=== PATIENT | female | born 1945 | race Caucasian/White ===

== ENCOUNTER 2020-06-07 07:56 | Emergency (ER) | payer MEDICARE, OTHER, SELFPAY ==
--- NOTE | ~2020-06-07 | CT_ITS ---
EXAMINATION: CT abdomen pelvis w con DATE: 06/07/2020 09:02 INDICATION: Abdominal pain. Nausea, vomiting, and diarrhea. TECHNIQUE: Computed tomography (CT) of the abdomen and pelvis was performed with 100 mL Omnipaque 350 intravenous contrast. Automated exposure control and iterative reconstruction technique were employe d. The dose-length product was 994.54 mGy-cm. COMPARISON: None. FINDINGS: The visualized portions of the lung bases demonstrate mild atelectasis. A calcified left ronnell ng nodule is consistent with old adenomatous disease. No pleural effusion. The heart size is normal. No pericardial effusion. The liver and spleen are normal. Material in the gallbladder may be sludge o r stones. The gallbladder is normal in size. The pancreas, adrenal glands, and kidneys are normal. Th ere are scattered diverticula in the colon. There are areas of wall thickening throughout the colon, worst in the sigmoid colon, consistent with colitis. The appendix is normal. There is a diverticulum of the fundus of the stomach. There is a mildly enlarged perisigmoid lymph node. There is no free int raperitoneal fluid. There is severe lumbar spondylosis. IMPRESSION: 1. Colitis. 2. Mildly enlarged perisigmoid lymph node, which may be reactive. Reviewed, dictated and finalized at location B.
--- NOTE | 2020-06-07 08:12 | ED.NAVMDI ---
HPI - Nausea/Vomiting/Diarrhea General Chief complaint: Nausea/Vomiting/Diarrhea Stated complaint: ABD PAIN, N/V/D Time Seen by Provider: 06/07/20 08:10 Source: old records reviewed History of Present Illness HPI Narrative: Patient presents emergency department from home for abdominal pain. Patient states symptoms began 5 days ago. Patient states she has been having cramping in her abdomen worse on the left side. States is been associated with diarrhea. The patient was seen by her PCP yesterday and had a COVID test that has not been resulted. She states that symptoms worsen with her diarrhea and she came in for further evaluation. She states she has had a subjective low-grade fever denies any runny nose sore throat cough or shortness of breath or any other symptoms states she took no pain medication this morning Related Data Allergies Allergy/AdvReac Type Severity Reaction Status Date / Time No Known Allergies Allergy Verified 06/07/20 08:26 Review of Systems Review of Systems: Narrative: Gen.: Reports low-grade fever Eyes: Denies eye pain or visual change ENT: Denies congestion Respiratory: Denies shortness of breath or cough CV: Denies chest pain or palpitations GI: See HPI denies burning, urgency, frequency or hematuria Musculoskeletal: Denies back pain or muscle pain Neuro: Denies numbness, tingling, weakness or focal weakness Skin: Denies rash Except as documented, all other systems reviewed and negative [facility] Past Medical History Medical History (Updated 06/07/20 @ 10:23 by Desmond Sullivan DO) Hypertension Social History Social History (Updated 06/07/20 @ 08:13 by Desmond Sullivan DO) Smoking status: Never smoker Exam Narrative: Exam Narrative: APPEARANCE: No acute distress, nontoxic, resting in bed HEENT: Normocephalic, atraumatic, OMM RESPIRATORY: No respiratory distress, clear to auscultation bilaterally with no rhonchi wheezing or rales CARDIOVASCULAR: RRR s murmur ABDOMINAL: Soft, nondistended, tender palpation left upper quadrant left lower quadrant, no tenderness right upper quadrant right lower quadrant, no rebound or guarding MUSCULOSKELETAl: Moves all extremities. No clubbing, cyanosis or edema. NEURO: Awake and alert. Following commands, speech normal, no focal deficits SKIN:: Warm, dry. Normal Color PSYCHIATRIC: Normal affect/mood Course Course Emergency Course: Discussed with Dr. Du presentation work-up. Agrees plan for discharge patient started on Cipro and Flagyl Patient states that they are feeling much better at this time. States abdominal pain has improved. Repeat abdominal exam shows the patient's abdomen to be soft with no surgical abdomen present. Discussed with patient results of workup and diagnosis. Discussed need for follow-up with primary care physician, reasons to return to the emergency department in proper use of medication. Patient understands and agrees to current treatment plan Vital Signs Vital signs: Vital Signs Temperature 98.3 F 06/07/20 08:14 Pulse Rate 78 06/07/20 08:14 Respiratory Rate 16 06/07/20 08:14 Blood Pressure 134/70 06/07/20 08:14 Pulse Oximetry 95 06/07/20 08:14 Temperature 98.3 F 06/07/20 08:14 Pulse Rate 73 06/07/20 10:03 Respiratory Rate 22 H 06/07/20 10:03 Blood Pressure 139/77 06/07/20 10:03 Pulse Oximetry 98 06/07/20 10:03 MDM - Nausea/Vomiting/Diarrhea MDM Narrative Medical decision making narrative: Patient's abdomen is soft without significant pain or signs of surgical abdomen on serial exams. Lab and x-ray evaluations are reviewed and patient is felt to be a reasonable candidate for outpatient management. Patient was instructed as to limitations of x-ray and laboratory evaluation and encouraged to return to ED or primary physician for repeat exam in 12 hours if continued or worsening pain Lab Data Result diagrams: 06/07/20 08:20 06/07/20 08:20 Labs: Lab Results
[2020-06-07 08:14] VITALS: BP 134/70; PULSE 78; RESP 16; TEMP 36.8; O2SAT 95
[2020-06-07] MEDS: LACTATED RINGERS 1,000 ML 999 ML IV CONT (08:18)
[2020-06-07 08:28] LABS: Basophils Absolute Auto 0.1 K/mm3 (0.0-0.1); Basophils Percent Auto 0.5 % (0.2-1.2); Eosinophils Absolute Auto 0.2 K/mm3 (0-0.3); Eosinophils Percent Auto 1.6 % (0-4.4); Hematocrit 36.6 % (37.0-47.0); Hemoglobin 11.8 g/dL (12.0-15.0); Immature Granulocyte Absolute 0.05 K/mm3 (0.00-0.031); Immature Granulocyte Percent A 0.4 % (0-0.5); Lymphocytes Absolute Auto 0.95 K/mm3 (0.9-3.2); Lymphocytes Percent Auto 8.2 % (18.3-44.2); Mean Corpuscular HGB Conc 32.2 g/dl (32-36); Mean Corpuscular Hemoglobin 26.9 pg (26-34); Mean Corpuscular Volume 83.6 fl (80-100); Mean Platelet Volume 8.8 fl (7.4-10.4); Monocytes Absolute Auto 1.3 K/mm3 (0.1-0.6); Monocytes Percent Auto 11.4 % (2.6-8.5); Neutrophils Percent Auto 77.9 % (45.5-73.1); Platelet Count Result 392 k/mm3 (150-375); Red Blood Count 4.38 M/mm3 (4.2-5.4); Red Cell Distribution Width 13.8 % (11.5-14.5); White Blood Count 11.6 K/mm3 (4.5-10.0)
[2020-06-07 08:40] LABS: Prothrombin Time 12.7 Seconds (11.1-14.7)
[2020-06-07 08:41] LABS: Alanine Aminotransferase 33 U/L (4-35); Albumin Level 3.8 g/dL (3.5-5.1); Alkaline Phosphatase 126 U/L (38-126); Anion Gap 8 mmol/L (8-16); Aspartate Amino Transferase 44 U/L (14-36); Bilirubin,Total 0.4 mg/dL (0.2-1.3); Blood Urea Nitrogen 16 mg/dL (7-17); Calcium 9.1 mg/dL (8.4-10.2); Carbon Dioxide 26 mmol/L (22-30); Chloride 102 mmol/L (98-107); Estimated CRCL calculation 66 ml/min; Estimated Glomerular Filt Rate > 60; Glucose 104 mg/dL (65-105); Potassium 4.1 mmol/L (3.4-5.0); Sodium 136 mmol/L (137-145)
[2020-06-07 09:33] LABS: Add Urine Microscopic? YES; Appearance Urine Cloudy (Clear); Bacteria Urine Trace /hpf; Bilirubin Urine Negative (Negative); Blood Urine Negative (Negative); Color Urine Yellow (Yellow); Glucose Urine UA Negative (Negative); Ketones Urine Negative (Negative); Leukocyte Esterase Ur 1+ LEU/UL (Negative); Mucus Urine Rare /lpf; Nitrate Urine Positive (Negative); Protein Urine Negative (Negative); RBC Urine 0-2 /hpf (0-2); Squamous Epithelial Cell Urine Few /hpf (Few); Urobilinogen Urine Negative mg/dL (<2.0); WBC Urine >75 /hpf
[2020-06-07 09:34] LABS: Specific Grav Ur 1.033 (1.001-1.035)
[2020-06-07 10:03] VITALS: BP 139/77; PULSE 73; RESP 22; O2SAT 98
[2020-06-07] MEDS: metroNIDAZOLE 250 MG TABLET 500 MG PO (10:32)
[2020-06-07] MEDS: CIPROFLOXACIN 500 MG TAB PO (10:32)
[2020-06-07 10:39] VITALS: BP 124/67; PULSE 72; RESP 18; O2SAT 96
== END 2020-06-07 10:40 | disposition home or self-care (01) ==
PROVIDERS: Emergency Provider Emergency Medicine; PCP Family Medicine Adolescent Medicine
DX: K52.9 Noninfective gastroenteritis and colitis, unspecified (principal); N39.0 Urinary tract infection, site not specified; I10 Essential (primary) hypertension
CPT/HCPCS: 36415; 74177; 80053; 81001; 85025; 85610; 87077; 87086; 87088; 87186; 96361; 96374; 99284; A9270; J0131; J7120; Q9967

== ENCOUNTER 2020-10-13 10:26 | Inpatient (IN) | payer MEDICARE, OTHER, SELFPAY ==
[2020-10-13] VITALS (10 sets, daily range): BP systolic 134–159; BP diastolic 63–85; PULSE 92–99; RESP 14–22; TEMP 36.7–37.7; O2SAT 94–100; BMI 31.4
--- NOTE | ~2020-10-13 | CT_ITS ---
EXAMINATION: CT abdomen pelvis w con INDICATION: Nausea and vomiting TECHNIQUE: Computed tomographic images of the abdomen and pelvis were obtained after the administrati on of 100 cc of Omnipaque 350 intravenous contrast. The dose-length product (DLP) was 763.76 mGy-cm. Automated exposure control and iterative reconstruction technique were employed. COMPARISON: 06/07/2020 FINDINGS: Minimal dependent atelectasis is present in the lung bases. The heart size is normal. There is a small sliding hiatal hernia. The liver, spleen, pancreas, gallbladder, and adrenal glands are n ormal. The kidneys are unremarkable. There is calcified atherosclerosis of the aorta and many of the other arteries. There is diffuse wall thickening of the colon, worst in the sigmoid colon. A mildly e nlarged perisigmoid lymph node is again noted. No additional abdominal pelvic lymphadenopathy is iden tified. There is no free intraperitoneal gas or evidence of bowel obstruction. There is severe lumbar spondylosis. IMPRESSION: 1. Colitis, worst in the sigmoid colon. 2. Persistent mildly enlarged perisigmoid lymph node, possibly reactive. Reviewed, dictated and finalized at location A. STONER
--- NOTE | ~2020-10-13 | CT_ITS ---
EXAMINATION: CT brain wo con DATE: 10/13/2020 13:43 INDICATION: Severe headache. Fever. TECHNIQUE: Computed tomography (CT) of the head was performed without intravenous contrast. Sagittal and coronal reconstructions were performed. The mA was adjusted according to patient size. Iterative reconstruction technique was employed. The dose-length product was 605.33 mGy-cm. COMPARISON: None FINDINGS: No acute intracranial hemorrhage, acute infarction or abnormal extra axial fluid collection. There is mild scattered white matter hypoattenuation consistent with chronic small vessel ischemic disease. S ymmetric prominence of the sulci consistent with mild age-appropriate diffuse cerebral volume loss. Ventricles are normal and symmetric. No mass/mass effect. Changes of bilateral intraocular lens repla cement. The orbits, paranasal sinuses and mastoid air cells are normal. Mild mucosal thickening the b ilateral ethmoid and sphenoid sinuses. Intracranial calcified cerebral atherosclerosis is noted. IMPRESSION: 1. No acute intracranial process. 2. Age-related changes including mild diffuse volume loss and mild scattered white matter hypoattenua tion consistent with chronic small vessel ischemic disease. Reviewed, dictated and finalized at location A. TENDER IMPRESSION: 1. No acute intracranial process. 2. Age-related changes including mild diffuse volume loss and mild scattered wh ite matter hypoattenuation consistent with chronic small vessel ischemic diseas e.
--- NOTE | ~2020-10-13 | US_ITS ---
EXAMINATION: US venous doppler [facility] DATE: 10/14/2020 10:52 INDICATION: Bilateral lower limb pain TECHNIQUE: Grayscale ultrasound images without and with compression and Doppler ultrasound images of the bilateral lower extremity veins were obtained. COMPARISON: None. FINDINGS: The visualized portions of right common femoral vein, profunda (deep) femoral vein, femoral vein, pop liteal vein, posterior tibial veins, peroneal veins, gastrocnemius vein and greater saphenous vein ou tflow are patent. The visualized portions of left common femoral vein, profunda femoral vein, femoral vein, popliteal v ein, posterior tibial veins, peroneal veins, gastrocnemius vein and greater saphenous vein outflow ar e patent. IMPRESSION: 1. No deep venous thrombosis in either lower limb. Reviewed, dictated and finalized at location A. CHEMIST
--- NOTE | ~2020-10-13 | XR_ITS ---
EXAMINATION: XR chest 1V portable DATE: 10/13/2020 12:08 INDICATION: Chest pressure TECHNIQUE: frontal view of the chest was obtained. COMPARISON: Chest radiograph dated 10/16/2015 FINDINGS: Small calcified nodule at the left costophrenic angle consistent with old granulomatous disease. No o ther airspace opacities, pulmonary edema, pleural effusion or pneumothorax. The cardiomediastinal sheree houette is normal. Visualized bones and soft tissues are unremarkable. IMPRESSION: 1. No acute cardiopulmonary disease. Reviewed, dictated and finalized at location A. KEN FANCIER
--- NOTE | 2020-10-13 11:44 | ECG_ITS ---
Measurements Intervals [place] Rate: 98 P: 29 CT: 176 QRS: -20 QRSD: 82 T: 24 QT: 352 QTc: 449 Interpretive Statements SINUS RHYTHM EARLY PRECORDIAL R/S TRANSITION MINIMAL Q WAVES- HIGH LATERAL LEADS BORDERLINE ECG Electronically Signed On 10-13-2020 14:03:57 HVAC SERVICE MANAGER by Barry Peacock D.O.
[2020-10-13 12:00] LABS: Hematocrit 34.1 % (37.0-47.0); Mean Corpuscular HGB Conc 32.3 g/dl (32-36); Mean Corpuscular Hemoglobin 26.8 pg (26-34); Mean Corpuscular Volume 83.2 fl (80-100); Mean Platelet Volume 8.4 fl (7.4-10.4); Platelet Count Result 495 k/mm3 (150-375); Red Cell Distribution Width 13.6 % (11.5-14.5); White Blood Count 20.1 K/mm3 (4.5-10.0)
[2020-10-13 12:10] LABS: Prothrombin Time 13.8 Seconds (11.1-14.7)
[2020-10-13 12:11] LABS: Partial Thromboplastin Time 30.9 SECONDS (22.3-36.8)
[2020-10-13 12:26] LABS: Band Neutrophils Percent 6 % (0-6); Hypochromasia 2+ (NORMAL); Monocytes Absolute Manual 2.21 K/mm3 (0.1-0.90); Monocytes Percent Manual 11 % (3-9); Neutrophils Absolute Manual 17.48 K/mm3 (1.7-7.2); Neutrophils Percent Manual 81 % (46-73); Platelet Estimate Increased (Adequate); Total Cells Counted 100
--- NOTE | 2020-10-13 12:45 | ED.FEVER ---
HPI - Fever General Chief Complaint: Fever Stated Complaint: FEVER,QUAN,ST,NASAL CONGESTION Time Seen by Provider: 10/13/20 12:17 History of Present Illness HPI Narrative: 75 yo female brought in from home by EMS presents to the ED for multiple complaints. She reports that she has had a QUAN for the past 2 weeks. This was thought to be due to sinusitis. She was started on antibiotics for this by her PCP. Since the onset of her symptoms she has also developed nausea, vomiting, diarrhea, and subjective fever. She is on chronic antibiotic prophylaxis for UTIs. She has not been taking this and says that she never knows when she has a UTI. Related Data Home Medications Medication Instructions Recorded Confirmed Turmeric Cbd Oil Hemp Isolate 10/13/20 acetaminophen 1,000 mg PO QID PRN 10/13/20 cefprozil 10/13/20 celecoxib mg 10/13/20 duloxetine mg PO 10/13/20 magnesium oxide 500 mg PO DAILY 10/13/20 metoprolol tartrate 10/13/20 tramadol mg 10/13/20 trimethoprim 10/13/20 Allergies Allergy/AdvReac Type Severity Reaction Status Date / Time No Known Allergies Allergy Verified 06/07/20 08:26 Review of Systems Review of Systems: All systems reviewed & are unremarkable except as noted in HPI and below Constitutional: Constitutional: Reports fatigue and Reports fever(s) ENT: Reports nasal congestion and Reports sore throat Cardiovascular: Cardiovascular: Reports chest pain Respiratory: Respiratory: Reports dyspnea Gastrointestinal: Gastrointestinal: Reports abdominal pain, Reports diarrhea, Reports nausea and Reports vomiting Genitourinary: Genitourinary: Denies hematuria, Reports nocturia and Denies dysuria Musculoskeletal: Musculoskeletal: Reports back pain Neurologic: Reports headache(s), Denies numbness and Reports weakness PMFSH Past Medical History Medical History (Updated 10/13/20 @ 17:01 by Bert Mack MD) Chronic UTI Depression Hypertension Sinusitis Social History Social History (Updated 06/07/20 @ 08:13 by Desmond Sullivan DO) Smoking status: Never smoker Exam Const: General: no acute distress and uncomfortable Nutritional Appearance: well nourished Orientation/consciousness: patient oriented x3 HENMT: Head: normal to inspection Face and sinus: normal facial exam Eyes: Pupils: Equal, round and reactive pupils present EOM: EOMs intact bilaterally Neck: Neck: normal visual inspection Resp: Effort & Inspection: normal respiratory effort Auscultation: clear to auscultation bilaterally Cardio: Rate: regular rate Rhythm: regular rhythm GI: Inspection: non-distended GI Palp: Yes Soft to palpation and Yes Tenderness to palpation present (GI) (diffusely) Auscultation: Hyperactive bowel sounds present Skin: General skin exam: normal color Neuro: General: patient oriented x3, no focal motor deficits and CN's II-XI intact bilaterally Speech: normal speech Extrem: General: normal to inspection and no edema Psych: Affect: Anxious affect present Course Vital Signs Vital signs: Vital Signs Temperature 37.2 C 10/13/20 11:55 Pulse Rate 97 10/13/20 11:55 Respiratory Rate 21 H 10/13/20 11:55 Blood Pressure 138/85 10/13/20 11:55 Pulse Oximetry 96 10/13/20 11:55 Temperature 37.2 C 10/13/20 16:45 Pulse Rate 93 10/13/20 16:45 Respiratory Rate 18 10/13/20 16:45 Blood Pressure 145/74 H 10/13/20 16:45 Pulse Oximetry 98 10/13/20 16:45 MDM - Fever Differential Diagnosis Differential diagnosis: Likely cellulitis, gastroenteritis, community acquired pneumonia, sepsis, influenza and other (COVID-19, dehydration, diverticulitis) Medical Records Attestation: I reviewed the patient's medical records. Lab Data Attestation: I reviewed the patient's lab results. Result diagrams: 10/13/20 11:47 10/13/20 11:47 Labs: Lab Results 10/13/20 10/13/20 10/13/20 Range/Units 11:47 11:47 11:47 WBC 20.1 H (4.5-10
[2020-10-13 12:59] LABS: Anion Gap 8 mmol/L (8-16); Blood Urea Nitrogen 15 mg/dL (7-17); Calcium 8.9 mg/dL (8.4-10.2); Carbon Dioxide 29 mmol/L (22-30); Chloride 97 mmol/L (98-107); Estimated CRCL calculation 64 ml/min; Estimated Glomerular Filt Rate > 60; Glucose 121 mg/dL (65-105); Potassium 3.8 mmol/L (3.4-5.0); Sodium 134 mmol/L (137-145)
[2020-10-13 13:12] LABS: Troponin I < 0.012 ng/mL (0.000-0.034)
[2020-10-13 13:15] LABS: Lactic Acid Reflex 1.3 mmol/L (0.7-2.1)
[2020-10-13 13:29] LABS: Alanine Aminotransferase 25 U/L (4-35); Albumin Level 3.5 g/dL (3.5-5.1); Alkaline Phosphatase 154 U/L (38-126); Aspartate Amino Transferase 38 U/L (14-36); Bilirubin,Total 0.5 mg/dL (0.2-1.3); CRP 20.9 mg/dL (<1.0)
[2020-10-13 13:29] LABS: Add Urine Microscopic? YES; Appearance Urine Clear (Clear); Bilirubin Urine Negative (Negative); Blood Urine Negative (Negative); Color Urine Yellow (Yellow); Glucose Urine UA Negative (Negative); Ketones Urine Negative (Negative); Leukocyte Esterase Ur Negative LEU/UL (Negative); Mucus Urine Heavy /lpf; Nitrate Urine Negative (Negative); Protein Urine 1+ mg/dL (Negative); Specific Grav Ur 1.027 (1.001-1.035); Squamous Epithelial Cell Urine Occasional /hpf (Few); Urobilinogen Urine Negative mg/dL (<2.0)
[2020-10-13] MEDS: SODIUM CHLORIDE 0.9% IV 1,000 ML 999 ML IV CONT (14:04)
[2020-10-13 15:18] LABS: Troponin I < 0.012 ng/mL (0.000-0.034)
[2020-10-13] MEDS: VANCOMYCIN ORAL 125 MG/2.5 ML SYRUP PO ×2 (17:51→23:30)
[2020-10-13 18:18] LABS: Troponin I < 0.012 ng/mL (0.000-0.034)
--- NOTE | 2020-10-13 19:12 | ADMGEN ---
This patient, Daphne Garrison, was admitted to 3 [facility] Surg Room 320-01. Patient/family oriented to hospital policies and general routines including ID bracelet, bed and alarms, visiting hours, pain management, procedures, bathroom and other care routines, personal items, smoking policy, room service/diet, and visiting hours. Information on how to activate the Rapid Response Team has been discussed. Patient/Family are encouraged to report perceived risks to care and to ask questions if they do not understand what they are told or what they should do.
[2020-10-13] MEDS: ONDANSETRON INJ 4 MG/2 ML VIAL IV PUSH (19:19)
[2020-10-13] MEDS: LACTATED RINGERS 1,000 ML 100 ML IV CONT (19:20)
--- NOTE | 2020-10-13 22:36 | PC.NURSE ---
1900 PT RECEIVED ALERT AND ORIENTED. ASSISTED TO BATHROOM. ORIENTED TO ROOM AND CALL LIGHT
[2020-10-14] VITALS (8 sets, daily range): BP systolic 130–148; BP diastolic 57–70; PULSE 69–94; RESP 16–20; TEMP 36.1–37.1; O2SAT 94–97
[2020-10-14] MEDS: ONDANSETRON INJ 4 MG/2 ML VIAL IV PUSH ×3 (04:46→20:20)
[2020-10-14 08:26] LABS: Basophils Absolute Auto 0.1 K/mm3 (0.0-0.1); Basophils Percent Auto 0.3 % (0.2-1.2); Eosinophils Absolute Auto 0.1 K/mm3 (0-0.3); Eosinophils Percent Auto 0.7 % (0-4.4); Hematocrit 31.5 % (37.0-47.0); Hemoglobin 9.8 g/dL (12.0-15.0); Immature Granulocyte Absolute 0.11 K/mm3 (0.00-0.031); Immature Granulocyte Percent A 0.7 % (0-0.5); Lymphocytes Absolute Auto 0.73 K/mm3 (0.9-3.2); Mean Corpuscular HGB Conc 31.1 g/dl (32-36); Mean Corpuscular Hemoglobin 25.8 pg (26-34); Mean Corpuscular Volume 82.9 fl (80-100); Mean Platelet Volume 8.1 fl (7.4-10.4); Monocytes Absolute Auto 1.4 K/mm3 (0.1-0.6); Monocytes Percent Auto 9.2 % (2.6-8.5); Neutrophils Absolute Auto 12.4 K/mm3 (1.3-6.7); Neutrophils Percent Auto 84.1 % (45.5-73.1); Platelet Count Result 475 k/mm3 (150-375); Red Cell Distribution Width 13.7 % (11.5-14.5); White Blood Count 14.7 K/mm3 (4.5-10.0)
[2020-10-14] MEDS: LACTATED RINGERS 1,000 ML 100 ML IV CONT (08:48)
[2020-10-14 09:06] LABS: Alanine Aminotransferase 23 U/L (4-35); Albumin Level 2.9 g/dL (3.5-5.1); Alkaline Phosphatase 132 U/L (38-126); Anion Gap 4 mmol/L (8-16); Aspartate Amino Transferase 33 U/L (14-36); Bilirubin,Total 0.4 mg/dL (0.2-1.3); Blood Urea Nitrogen 8 mg/dL (7-17); Calcium 8.1 mg/dL (8.4-10.2); Carbon Dioxide 29 mmol/L (22-30); Chloride 100 mmol/L (98-107); Estimated CRCL calculation 64 ml/min; Estimated Glomerular Filt Rate > 60; Glucose 96 mg/dL (65-105); Magnesium 1.8 mg/dL (1.6-2.3); Potassium 3.6 mmol/L (3.4-5.0); Sodium 133 mmol/L (137-145)
--- NOTE | 2020-10-14 09:51 | PM.IMHP ---
H&P: HPI History of Present Illness Date/Time: 10/14/20 09:51 Chief Complaint: Nausea, vomiting, diarrhea, abdominal pain Narrative: Daphne Garrison is a 75 year old female with history of recent diagnosis of colitis, recurrent UTIs, depression, recent sinusitis (treated with cipro per patient), and hypertension who presented to the ED from home on 10/13 with multiple complaints, mainly persistent diarrhea and abdominal pain. Patient states her symptoms started in 05/2020 when she was diagnosed with colitis and treated with cipro and flagyl for 10 days. Her symptoms at that time were similar including multiple bouts of diarrhea throughout the day, nausea, vomiting, and abdominal pain. She notes taking the full course of antibiotics at that time with some improvement in her symptoms, but still persistent to a lesser degree. This continued through 08/2020 when she had an exacerbation in her symptoms and was treated again with another course of Flagyl and Cipro, she thinks for the same amount of time or for 2 weeks. Again, had some improvement in her symptoms, but still persistent until she had worsening symptoms this past week, yet again, and worsened to a point to which it was unbearable, prompting her to proceed to the ED for further evaluation. She state she has had multiple episodes of nonbloody, brown, mucous stool, too many to quantify throughout the day. She has associated diffuse abdominal cramping as well. She has had subjective fevers, myalgias, and headache, as well as, some occasional chest pressure, but no palpitations, radiation of chest pain, associated diaphroesis. She notes she recently was given a course of antibiotics (she thinks cipro) for treatment of sinusitis from her PCP for which she has only taken roughly 6 days worth. Prior to 05/2020, when her symptoms first started, she notes she was intentionally trying to lose weight and adjusted her diet and began taking diet pills. She notes losing 20 lbs intentionally with this system, but now has 5 lbs of weight loss recently due to poor PO intake. She also notes bilateral lower extremity calf pain. She has no other complaints at the moment. Denies current subjective f/c/s, dizziness, lightheadedness, changes in v/h, current cp/palpitations, sob/cough, oral lesions/sores, dysuria, hematuria, cloudy urine, current calf pain/swelling. She also denies any previous episodes outside of 05/2020 and 08/2020, nor any personal or family history of IBD. While in the ED, patient was found to have stable VS, tmax of 99.9, leukocytosis of 20.1k and CT abd/pelvis findings suggestive of colitis, worst in the sigmoid colon; persistent mildly enlarge perisigmoid lymph node noted, possibly reactive. She was placed on IV zosyn and oral vanc, for which she could only take 2 doses orally, and then began developing n/v again. Today she is still noted to have stable VS, afebrile, with improving leukocytosis of 14.7k. She is also noted to have anemia, relatively stable from previous hospital visit. Electrolytes, LFTs stable/normal today; lactic acid WNL yesterday; troponin negative x 3. CXR and CT head in ED grossly unremarkable. Review of Systems Review of Systems: All systems reviewed & are unremarkable except as noted in HPI and below PMFSH Past Medical History Medical History (Updated 10/14/20 @ 10:41 by Dax Stapleton PA-C) Arthritis Chronic UTI DDD (degenerative disc disease) Depression Hypertension Psoriasis Sinusitis Surgical History Surgical History (Updated 10/14/20 @ 10:41 by Dax Stapleton PA-C) H/O: hysterectomy History of laminectomy History of left knee replacement Family History Family History (Updated 10/13/20 @ 21:03 by Malika Ledesma RN) Mother Leukemia Father Heart attack Sibling Heart abnormality Social History Social History (Updated 06/07/20 @ 08:13 by Desmond Sullivan DO) Smoking status: Never smoker Alcohol intake: never Substance use: never
[2020-10-14] MEDS: CIPROFLOXACIN 400 MG/D5W 200ML 200 ML 200 MG IVPB (10:32)
[2020-10-14] MEDS: METOPROLOL TARTRATE 50 MG TAB PO ×2 (10:33→16:49)
[2020-10-14] MEDS: CELECOXIB 200 MG CAPSULE PO (10:33)
[2020-10-14] MEDS: DULoxetine HCL 60 MG CAPSULE.DR PO (10:33)
[2020-10-14] MEDS: metroNIDAZOLE 500 MG/ISO 100ML 500 MG/100 ML BAG 100 MG IVPB ×2 (10:34→18:24)
[2020-10-14] MEDS: ENOXAPARIN 40 MG/0.4 ML SYRINGE SUB-Q (11:46)
[2020-10-14] MEDS: ACETAMINOPHEN 500 MG TABLET 1000 MG PO (20:22)
[2020-10-14 20:47] LABS: SARS-CoV-2 RNA PCR Negative
[2020-10-15] MEDS: ONDANSETRON INJ 4 MG/2 ML VIAL IV PUSH ×3 (00:13→09:07)
[2020-10-15] MEDS: metroNIDAZOLE 500 MG/ISO 100ML 500 MG/100 ML BAG 100 MG IVPB ×3 (01:46→17:16)
[2020-10-15] MEDS: LACTATED RINGERS 1,000 ML 100 ML IV CONT (01:47)
[2020-10-15] MEDS: CIPROFLOXACIN 400 MG/D5W 200ML 200 ML 200 MG IVPB ×2 (05:21→18:12)
[2020-10-15 06:00] VITALS: BP 147/61; PULSE 79; RESP 18; TEMP 36.4; O2SAT 97
[2020-10-15 07:46] LABS: Basophils Absolute Auto 0.1 K/mm3 (0.0-0.1); Basophils Percent Auto 0.4 % (0.2-1.2); Eosinophils Absolute Auto 0.2 K/mm3 (0-0.3); Hematocrit 30.9 % (37.0-47.0); Hemoglobin 9.4 g/dL (12.0-15.0); Immature Granulocyte Absolute 0.13 K/mm3 (0.00-0.031); Immature Granulocyte Percent A 1.1 % (0-0.5); Lymphocytes Absolute Auto 0.75 K/mm3 (0.9-3.2); Lymphocytes Percent Auto 6.4 % (18.3-44.2); Mean Corpuscular HGB Conc 30.4 g/dl (32-36); Mean Corpuscular Hemoglobin 25.4 pg (26-34); Mean Corpuscular Volume 83.5 fl (80-100); Mean Platelet Volume 8.2 fl (7.4-10.4); Monocytes Absolute Auto 1.2 K/mm3 (0.1-0.6); Monocytes Percent Auto 10.6 % (2.6-8.5); Neutrophils Absolute Auto 9.3 K/mm3 (1.3-6.7); Neutrophils Percent Auto 79.5 % (45.5-73.1); Platelet Count Result 488 k/mm3 (150-375); Red Cell Distribution Width 13.6 % (11.5-14.5); White Blood Count 11.8 K/mm3 (4.5-10.0)
[2020-10-15 08:02] LABS: Alanine Aminotransferase 20 U/L (4-35); Albumin Level 2.9 g/dL (3.5-5.1); Alkaline Phosphatase 115 U/L (38-126); Anion Gap 6 mmol/L (8-16); Aspartate Amino Transferase 25 U/L (14-36); Bilirubin,Total 0.3 mg/dL (0.2-1.3); Blood Urea Nitrogen 6 mg/dL (7-17); Calcium 8.1 mg/dL (8.4-10.2); Carbon Dioxide 29 mmol/L (22-30); Chloride 100 mmol/L (98-107); Estimated CRCL calculation 73 ml/min; Estimated Glomerular Filt Rate > 60; Glucose 95 mg/dL (65-105); Magnesium 1.8 mg/dL (1.6-2.3); Potassium 3.2 mmol/L (3.4-5.0); Sodium 135 mmol/L (137-145)
[2020-10-15 08:59] LABS: Iron 12 ug/dL (37-170)
[2020-10-15 09:07] LABS: Folic Acid 19.1 ng/mL (2.76->20)
[2020-10-15] MEDS: ENOXAPARIN 40 MG/0.4 ML SYRINGE SUB-Q (09:07)
[2020-10-15 09:08] VITALS: PULSE 78
[2020-10-15 09:08] LABS: Percent Iron Saturation 6 % (20-50)
[2020-10-15] MEDS: CELECOXIB 200 MG CAPSULE PO (09:08)
[2020-10-15] MEDS: DULoxetine HCL 60 MG CAPSULE.DR PO (09:08)
[2020-10-15] MEDS: METOPROLOL TARTRATE 50 MG TAB PO ×2 (09:08→17:13)
--- NOTE | 2020-10-15 12:52 | PM.IMPN ---
Progress Note: A&P Assessment and Plan (1) Colitis: Code(s): K52.9 - Noninfective gastroenteritis and colitis, unspecified Status: Acute Assessment and Plan: Persistent symptoms (initially started 05/2020) of nonbloody diarrhea, nausea/vomiting, and abdominal fevers with subjective fevers occasionally. Patient again has evidence of colitis on CT abd/pelvis. She was initially placed on IV zosyn and PO vanc for empiric treatment of c diff colitis or other etiology of colitis, however, she was unable to tolerate PO initially, thus she was switched to IV flagyl for c diff coverage, and IV cipro. Cdiff, giardia, and cyptosporidium testing has returned as negative. BCx shows NGTD x 2. Symptoms and leukocytosis are improving; tolerated CLD this morning; she is hesitant to move to FLD just yet. Other stool studies are pending. IBD on differential, although patient has no personal or family history She believes she has an appointment with Dr. Adams in 11/2020 whom she has not yet established care. Dr. Adams now consulted and appreciate input. Will continue with treatment with IV flagyl and Cipro for now given improvement and await further recommendations from GI CLD for now; advance diet slowly and as tolerated Await other stool studies Will D/c fluids today Lovenox for dvt PPX; Venous doppler negative for DVT PO home meds have been resumed for now, but may hold if not tolerating diet. Will stop/hold oral home antibiotics (appears she takes trimethoprim for recurrent/chronic UTI and cefprozil presumed to be for her recent sinusitis) Monitor closely Daily labs (2) Suspected 2019-nCoV infection: Code(s): Z20.822 - Contact with and (suspected) exposure to COVID-19 Status: Ruled-out Assessment and Plan: Patient has been swabbed for COVID in ED. This is negative (3) Hypertension: Code(s): I10 - Essential (primary) hypertension Status: Acute Assessment and Plan: BP reasonable at 140s sys most recently continue home metoprolol if tolerating PO (4) Depression: Code(s): F32.9 - Major depressive disorder, single episode, unspecified Status: Inactive Assessment and Plan: no acute issues Continue home meds if tolerating PO (5) Anemia: Code(s): D64.9 - Anemia, unspecified Status: Acute Assessment and Plan: H&H slowly trending down; slightly decreased since 05/2020 (11.8 at that time). Iron panel suggestive of ACD/AI thus will not give iron supplementation; Likely colitis etiology? IBD? No signs/symptoms of acute blood loss. Possible dilutional effect from IV fluids, as well Monitor H&H Transfuse as needed continue treatment of colitis as above Subjective Date/time seen: 10/15/20 12:52 Interval history: Patient is a 75 year old female with history of recent diagnosis of colitis, recurrent UTIs, depression, recent sinusitis (treated with cipro per patient), and hypertension who is seen in follow up for colitis. Patient states she feels better today. Her diet was advanced this morning to CLD which she seemed to tolerate well. She notes her diarrhea has improved as well; nonbloody BMs. She notes her cramping and nausea/dry heaves have improved, but has been taking Zofran regularly. When discussing advancing her diet, she wishes to take it slow and possibly try FLD tomorrow. Still has a slight headache. Cramping in her calves have improved. Otherwise no complaints. Denies subjective f/c/s, dizziness, lightheadedness, cp/palpitations, sob/cough, dysuria, calf pain/swelling. Review of Systems Review of Systems: All systems reviewed & are unremarkable except as noted in HPI and below Exam Narrative: Exam Narrative: General: Patient resting supine in bed in no a
[2020-10-15] MEDS: FUROSEMIDE INJ 40 MG/4 ML VIAL IV PUSH (13:15)
[2020-10-15 13:35] VITALS: BMI 31.4
[2020-10-15 14:00] VITALS: BP 128/55; PULSE 67; RESP 20; TEMP 36.7; O2SAT 97
--- NOTE | 2020-10-15 14:28 | WPDGICN ---
Assessment and Plan Assessment and plan (1) Colitis: Code(s): K52.9 - Noninfective gastroenteritis and colitis, unspecified Status: Acute Assessment and Plan: awaiting on stool samples, if definitive infection then will continue with medical treatment, if negative then will proceed with colonoscopy probably in 1-2 more days she is already doing better, continue with medical therapy will get also esr and crp, trend wbc (2) Leukocytosis: Code(s): D72.829 - Elevated white blood cell count, unspecified Status: Acute Assessment and Plan: improving. (3) Sepsis: Code(s): A41.9 - Sepsis, unspecified organism Status: Acute Assessment and Plan: better (4) Chronic UTI: Code(s): N39.0 - Urinary tract infection, site not specified Status: Inactive Assessment and Plan: she has received antibiotics previously C diff negative GI Consult Note Consult date/time: 10/15/20 14:28 Reason for consult: diarrhea, colitis HPI: Daphne Garrison is a 75 year old female with depression, hypertension and recurrent colitis (first episode 05/2020 then similar episode on 08/2020 both times treated empirically with oral antibiotics with some improvement of symptoms). She came to ED 2 days ago with several days of persistent diarrhea, nausea, vomiting and lower abdominal pain. Previously had flu like symptoms and sinusitis given antibiotics and COVID test was negative. Prior her first episode in 05/2020 she was trying to lose weight and started using diet pills and changed her diet. ER evaluation with tmax of 99.9, leukocytosis of 20.1k and CT abd/pelvis findings suggestive of colitis, worst in the sigmoid colon; persistent mildly enlarge perisigmoid lymph node noted, possibly reactive. She was given antibiotics, stool samples pending. Lactic acid and troponin normal. CXR and CT head unremarkable. She is tolerating liquid diet, feeling better. She had a colonoscopy over 5 years ago and her doctor actually had called my office to set up a colonoscopy for her as outpatient. Review of Systems Constitutional: Constitutional: Denies headache(s) and Denies weakness Eyes: Eyes: Denies blurry vision ENT: Reports Normal hearing present, Denies headache(s) and Denies neck pain Cardiovascular: Cardiovascular: Denies chest pain and Denies dyspnea Respiratory: Respiratory: Denies dyspnea Gastrointestinal: Gastrointestinal: Reports no additional gastrointestinal complaints Genitourinary: Genitourinary: Denies dysuria Musculoskeletal: Musculoskeletal: Denies neck pain Integumentary/Breasts: Skin/Breast: Denies dry skin Neurologic: Reports Normal hearing present, Denies headache(s) and Denies weakness Psychiatric: Psychiatric: Denies anxiety Endocrine: Endocrine: Denies change in body appearance Hematologic/Lymphatic: Hematologic/Lymphatic: Denies easy bleeding Allergic/Immunologic: Allergic/Immunologic: Denies urticaria PMFSH Past Medical History Medical History (Updated 10/15/20 @ 15:28 by Solitario Crockett MD) Arthritis Chronic UTI DDD (degenerative disc disease) Depression Hypertension Leukocytosis Psoriasis Sinusitis Surgical History Surgical History (Updated 10/14/20 @ 10:41 by BRANDYN ChavarriaC) H/O: hysterectomy History of laminectomy History of left knee replacement Family History Family History (Updated 10/13/20 @ 21:03 by Malika Ledesma RN) Mother Leukemia Father Heart attack Sibling Heart abnormality Social History Social History (Updated 06/07/20 @ 08:13 by Desmond Sullivan DO) Smoking status: Never smoker Alcohol intake: never Substance use: never Spiritual care concerns: No Meds Home Medications and Allergies Home Medications Medication Instructions Recorded Confirmed Type Turmeric Cbd Oil Hemp Isolate 250 mg PO DAILY 10/13/20 10/13/20 History acetaminophen 1,000 mg PO QID PRN 10/13/20 10/13/20 [place]
[2020-10-15 17:13] VITALS: PULSE 66
[2020-10-15 22:00] VITALS: BP 128/63; PULSE 68; RESP 18; TEMP 36.4; O2SAT 95
[2020-10-15] MEDS: ACETAMINOPHEN 500 MG TABLET 1000 MG PO (23:57)
[2020-10-16] VITALS (8 sets, daily range): BP systolic 116–135; BP diastolic 44–64; PULSE 64–84; RESP 16–20; TEMP 36.3–36.7; O2SAT 95–97
[2020-10-16] MEDS: metroNIDAZOLE 500 MG/ISO 100ML 500 MG/100 ML BAG 100 MG IVPB ×3 (01:19→18:32)
[2020-10-16] MEDS: CIPROFLOXACIN 400 MG/D5W 200ML 200 ML 200 MG IVPB ×2 (05:54→19:35)
[2020-10-16 06:47] LABS: Basophils Absolute Auto 0.1 K/mm3 (0.0-0.1); Basophils Percent Auto 0.4 % (0.2-1.2); Eosinophils Absolute Auto 0.3 K/mm3 (0-0.3); Eosinophils Percent Auto 2.5 % (0-4.4); Hematocrit 29.1 % (37.0-47.0); Hemoglobin 9.2 g/dL (12.0-15.0); Immature Granulocyte Absolute 0.16 K/mm3 (0.00-0.031); Immature Granulocyte Percent A 1.2 % (0-0.5); Lymphocytes Absolute Auto 0.87 K/mm3 (0.9-3.2); Lymphocytes Percent Auto 6.8 % (18.3-44.2); Mean Corpuscular HGB Conc 31.6 g/dl (32-36); Mean Corpuscular Volume 82.2 fl (80-100); Mean Platelet Volume 8.1 fl (7.4-10.4); Monocytes Absolute Auto 1.2 K/mm3 (0.1-0.6); Monocytes Percent Auto 9.2 % (2.6-8.5); Neutrophils Absolute Auto 10.3 K/mm3 (1.3-6.7); Neutrophils Percent Auto 79.9 % (45.5-73.1); Platelet Count Result 466 k/mm3 (150-375); Red Blood Count 3.54 M/mm3 (4.2-5.4); Red Cell Distribution Width 13.6 % (11.5-14.5); White Blood Count 12.9 K/mm3 (4.5-10.0)
[2020-10-16 06:57] LABS: IFOB Positive Control Positive; Immunochemical Fecal Occult Bl Positive (N)
[2020-10-16 07:06] LABS: Alanine Aminotransferase 16 U/L (4-35); Albumin Level 2.6 g/dL (3.5-5.1); Alkaline Phosphatase 108 U/L (38-126); Anion Gap 3 mmol/L (8-16); Aspartate Amino Transferase 22 U/L (14-36); Bilirubin,Total 0.3 mg/dL (0.2-1.3); Blood Urea Nitrogen 4 mg/dL (7-17); Calcium 7.8 mg/dL (8.4-10.2); Carbon Dioxide 32 mmol/L (22-30); Chloride 98 mmol/L (98-107); Estimated CRCL calculation 64 ml/min; Estimated Glomerular Filt Rate > 60; Glucose 110 mg/dL (65-105); Magnesium 1.6 mg/dL (1.6-2.3); Potassium 2.7 mmol/L (3.4-5.0); Sodium 133 mmol/L (137-145)
[2020-10-16 07:31] LABS: Erythrocyte Sedimentation Rate 135 mm/hr (0-20)
[2020-10-16] MEDS: ONDANSETRON INJ 4 MG/2 ML VIAL IV PUSH ×2 (08:20→20:44)
[2020-10-16] MEDS: traMADol HCL (*CRX) 50 MG TABLET PO (08:24)
[2020-10-16] MEDS: METOPROLOL TARTRATE 50 MG TAB PO ×2 (08:25→17:15)
[2020-10-16] MEDS: CELECOXIB 200 MG CAPSULE PO (08:25)
[2020-10-16] MEDS: DULoxetine HCL 60 MG CAPSULE.DR PO (08:25)
[2020-10-16] MEDS: ENOXAPARIN 40 MG/0.4 ML SYRINGE SUB-Q (08:25)
[2020-10-16] MEDS: MAGNESIUM SULFATE 3GM/D5W100ML 3 GM/100 ML BAG IVPB (10:50)
--- NOTE | 2020-10-16 13:15 | PM.IMPN ---
Progress Note: A&P Assessment and Plan (1) Colitis: Code(s): K52.9 - Noninfective gastroenteritis and colitis, unspecified Status: Acute Assessment and Plan: Persistent symptoms (initially started 05/2020) of nonbloody diarrhea, nausea/vomiting, and abdominal fevers with subjective fevers occasionally. Patient again has evidence of colitis on CT abd/pelvis. She was initially placed on IV zosyn and PO vanc for empiric treatment of c diff colitis or other etiology of colitis, however, she was unable to tolerate PO initially, thus she was switched to IV flagyl for c diff coverage, and IV cipro. Cdiff, giardia, E coli, and cyptosporidium testing has returned as negative. BCx shows NGTD x 2. Symptoms and leukocytosis are improving. Other stool studies are pending. IBD on differential, although patient has no personal or family history She believes she has an appointment with Dr. Adams in 11/2020 whom she has not yet established care. Dr. Adams now consulted and appreciate input. Dr. Adams will be advancing diet as tolerated and thinking about colonoscopy. Will continue with treatment with IV flagyl and Cipro for now given improvement and await further recommendations from GI FLD for now; advance diet slowly and as tolerated Await other stool studies Lovenox for dvt PPX; Venous doppler negative for DVT PO home meds have been resumed for now, but may hold if not tolerating diet. Will stop/hold oral home antibiotics (appears she takes trimethoprim for recurrent/chronic UTI and cefprozil presumed to be for her recent sinusitis) Monitor closely Daily labs (2) Suspected 2019-nCoV infection: Code(s): Z20.822 - Contact with and (suspected) exposure to COVID-19 Status: Ruled-out Assessment and Plan: Patient has been swabbed for COVID in ED. This is negative (3) Hypertension: Code(s): I10 - Essential (primary) hypertension Status: Acute Assessment and Plan: BP reasonable at 135/64 this morning. Stable. continue home metoprolol if tolerating PO (4) Depression: Code(s): F32.9 - Major depressive disorder, single episode, unspecified Status: Inactive Assessment and Plan: no acute issues Continue home meds if tolerating PO (5) Anemia: Code(s): D64.9 - Anemia, unspecified Status: Acute Assessment and Plan: H&H slowly trending down; slightly decreased since 05/2020 (11.8 at that time). Iron panel suggestive of ACD but due to low % saturation will give IV Venofer for some Acute iron deficiency anemia and discharge on Ferrous sulfate. Likely colitis etiology? IBD? No signs/symptoms of acute blood loss. Possible dilutional effect from IV fluids, as well H&H was stable at 9.2/29%. Monitor H&H Transfuse as needed continue treatment of colitis as above Additional Plan Patient admitted under observation status for colitis. Pending clinical improvement, she may need additional days for treatment Time Spent With Patient Time with patient: 25 - 35 minutes Subjective Date/time seen: 10/16/20 13:15 Interval history: Patient is a 75 year old female with history of recent diagnosis of colitis, recurrent UTIs, depression, recent sinusitis (treated with cipro per patient), and hypertension who is seen in follow up for colitis. Date of service 10/16/2020: Patient states she feels better today, she only reports to small bowel movements and states it was mostly gas and some liquidy stool. Her diet was advanced this morning to full liquid diet which she seemed to tolerate well. She notes her diarrhea has improved as well; nonbloody BMs. She denies any more abdominal pain or cramping, nausea, vomiting. She denies any fevers, chills, cough, shortness of breath, chest pain, li
--- NOTE | 2020-10-16 14:18 | WPDGIPROGNO ---
Progress Note: A&P Assessment and Plan (1) Colitis: Code(s): K52.9 - Noninfective gastroenteritis and colitis, unspecified Status: Acute Assessment and Plan: continue medical management, feeling better will do a colonoscopy tomorrow, stool cultures so far negative, another differential could be ischemic colitis (2) Leukocytosis: Code(s): D72.829 - Elevated white blood cell count, unspecified Status: Acute Subjective Date/time seen: 10/16/20 14:18 Interval history: she is feeling better with less diarrhea today, tolerating liquid diet Review of Systems Review of Systems: All systems reviewed & are unremarkable except as noted in HPI and below Exam Const: General: comfortable and no acute distress Other: elderly, pleasant HENMT: General nose exam: Normal nares present Eyes: General: appearance normal, both eyes and all related structures Neck: Neck: no JVD Resp: Auscultation: clear to auscultation bilaterally Cardio: Rate: regular rate Rhythm: regular rhythm GI: Inspection: non-distended GI Palp: Yes Soft to palpation, Yes Tenderness to palpation present (GI) (minimally tender in lower abdomen, no guarding) and No Guarding due to palpation present (GI) Auscultation: normal bowel sounds Skin: General skin exam: normal color Neuro: Speech: normal speech Extrem: General: normal to inspection Psych: Mental Status: mental status grossly normal Objective Data Vital Signs Vital Signs: Vital Signs - 24 hr 10/15/20 17:13 10/15/20 22:00 10/16/20 06:00 Temperature 97.6 F 97.9 F Pulse Rate 66 68 81 Respiratory Rate 18 18 Blood Pressure 128/63 135/64 Pulse Oximetry 95 97 10/16/20 08:00 10/16/20 08:25 Temperature Pulse Rate 84 84 Respiratory Rate 18 Blood Pressure Pulse Oximetry 97 Intake/Output Intake/Output: Intake & Output 10/13/20 10/14/20 10/15/20 10/16/20 23:59 23:59 23:59 23:59 Intake Total 1250 1670 3710 660 Output Total 1500 600 Balance 1250 1670 2210 60 Meds/Results Medications: Active Medications Generic Name Dose Route Start Last Admin Trade Name Freq PRN Reason Stop Dose Admin Acetaminophen 1,000 mg 10/14/20 07:46 10/15/20 23:57 Acetaminophen 500 Mg Tablet PO 1,000 mg QID PRN Administration PAIN RATED 1-3 Celecoxib 200 mg 10/14/20 09:00 10/16/20 08:25 Celecoxib 200 Mg Capsule PO 200 mg DAILY JAYESH Administration Duloxetine HCl 60 mg 10/14/20 09:00 10/16/20 08:25 Duloxetine Hcl 60 Mg Capsule.Dr PO 60 mg DAILY JAYESH Administration Enoxaparin Sodium 40 mg 10/14/20 09:00 10/16/20 08:25 Enoxaparin 40 Mg/0.4 Ml Syringe SUB-Q 40 mg DAILY JAYESH Administration Metronidazole 500 mg in 100 mls @ 100 mls/hr 10/14/20 10:00 10/16/20 10:02 Flagyl 500 Mg/Iso Soln 100 Ml IVPB 100 mls/hr Q8H JAYESH Administration Ciprofloxacin/Dextrose 200 mls @ 200 mls/hr 10/15/20 06:00 10/16/20 06:54 Cipro 400 Mg/D5w 200 Ml IVPB Infused Q12H JAYESH Infusion Iron Sucrose 300 mg/ Sodium 115 mls @ 76.667 mls/hr 10/16/20 09:05 Chloride IVPB 10/19/20 09:06 QAM JAYESH Metoprolol Tartrate 50 mg 10/14/20 09:00 10/16/20 08:25 Metoprolol Tartrate 50 Mg Tab PO 50 mg BID JAYESH Administration Ondansetron HCl 4 mg 10/13/20 16:52 10/16/20 08:20 Ondansetron Inj 4 Mg/2 Ml Vial IV PUSH 4 mg Q4H PRN Administration Nausea Sodium Chloride 1 spray 10/16/20 13:14 Saline 0.65% Sandro Soln 44 Ml Btl NASAL Q6HR PRN Congestion Tramadol HCl 50 mg 10/14/20 07:46 10/16/20 08:24 Tramadol Hcl (*Crx) 50 Mg Tablet PO 50 mg QID PRN Administration PAIN RATED 4-6 Trimethoprim 100 mg 10/14/20 21:00 Trimethoprim 100 Mg Tablet PO [facility] Radiology Results: ITS Impressions Chest X-Ray 10/13/20 13:17 IMPRESSION: 1. No acute cardiopulmonary disease. Head CT 10/13/20 13:52 IMPRESSION: 1. No acute intracranial process. 2. Age-related leone
[2020-10-16 15:12] LABS: Magnesium 2.4 mg/dL (1.6-2.3); Potassium 3.6 mmol/L (3.4-5.0)
[2020-10-16] MEDS: PEG (High)/E-LYTE SOLN 4,000 ML BTL 4000 ML PO (17:14)
[2020-10-16] MEDS: BISACODYL 5 MG TABLET EC 20 MG PO (17:17)
--- NOTE | 2020-10-16 18:57 | WPDANESEPP ---
Anes - Eval Pre Procedure Procedure: Operation Date: 10/17/20 12:45 Proposed Procedures p Colonoscopy - Solitario Crockett MD Date/Time: 10/16/20 18:57 Pre Op Diagnosis: Sepsis, Colitis Patient Data Age: 75 Gender: F Height: 5 ft 5 in Weight: 85.8 kg Last Vital Signs Temp 98.0 F 10/16/20 14:00 Pulse 64 10/16/20 17:15 Resp 20 10/16/20 14:00 BP 116/44 L 10/16/20 14:00 Pulse Ox 95 10/16/20 17:31 Allergies Allergy/AdvReac Type Severity Reaction Status Date / Time No Known Allergies Allergy Verified 06/07/20 08:26 Home Medications Medication Instructions Recorded Confirmed Type Turmeric Cbd Oil Hemp Isolate 250 mg PO DAILY 10/13/20 10/13/20 History acetaminophen 1,000 mg PO QID PRN 10/13/20 10/13/20 History cefprozil 250 mg PO DAILY 10/13/20 10/13/20 History celecoxib 200 mg PO DAILY 10/13/20 10/13/20 History duloxetine 60 mg PO DAILY 10/13/20 10/13/20 History magnesium oxide 500 mg PO DAILY 10/13/20 10/13/20 History metoprolol tartrate 50 mg PO BID 10/13/20 10/13/20 History tramadol 50 mg PO QID PRN 10/13/20 10/13/20 History trimethoprim 100 mg PO HS 10/13/20 10/13/20 History Laboratory Tests 10/16/20 10/16/20 10/16/20 05:58 06:16 06:16 WBC 12.9 K/mm3 H K/mm3 (4.5-10.0) RBC 3.54 M/mm3 L M/mm3 (4.2-5.4) Hgb 9.2 g/dL L g/dL (12.0-15.0) Hct 29.1 % L % (37.0-47.0) MCV 82.2 fl fl (80-100) MCH 26.0 pg pg (26-34) MCHC 31.6 g/dl L g/dl (32-36) RDW 13.6 % % (11.5-14.5) Plt Count 466 k/mm3 H k/mm3 (150-375) MPV 8.1 fl fl (7.4-10.4) Immature Gran % (Auto) 1.2 % H % (0-0.5) Neut % (Auto) 79.9 % H % (45.5-73.1) Lymph % (Auto) 6.8 % L % (18.3-44.2) [place] % (Auto) 9.2 % H % (2.6-8.5) Eos % (Auto) 2.5 % % (0-4.4) Baso % (Auto) 0.4 % % (0.2-1.2) Lymph # (Auto) 0.87 K/mm3 L K/mm3 (0.9-3.2) [place] # (Auto) 1.2 K/mm3 H K/mm3 (0.1-0.6) Eos # (Auto) 0.3 K/mm3 K/mm3 (0-0.3) Baso # (Auto) 0.1 K/mm3 K/mm3 (0.0-0.1) Abs Immat Gran (auto) 0.16 K/mm3 H K/mm3 (0.00-0.031) Absolute Neuts (auto) 10.3 K/mm3 H K/mm3 (1.3-6.7) Absolute Nucleated RBC 0.0 K/mm3 K/mm3 (0.0-0.012) Nucleated RBC % 0.0 % % (0.0-0.2) ESR Sodium 133 mmol/L L mmol/L (137-145) Potassium 2.7 mmol/L L* mmol/L (3.4-5.0) Chloride 98 mmol/L mmol/L (98-107) Carbon Dioxide 32 mmol/L H mmol/L (22-30) Anion Gap 3 mmol/L L mmol/L (8-16) BUN 4 mg/dL L mg/dL (7-17) Creatinine 0.70 mg/dL mg/dL (0.7-1.0) Estim Creat Clear Calc 64 ml/min ml/min Estimated GFR > 60 (59 - ) Glucose 110 mg/dL H mg/dL (65-105) Calcium 7.8 mg/dL L mg/dL (8.4-10.2) Magnesium 1.6 mg/dL mg/dL (1.6-2.3) Total Bilirubin 0.3 mg/dL mg/dL (0.2-1.3) AST 22 U/L U/L (14-36) ALT 16 U/L U/L (4-35) Alkaline Phosphatase 108 U/L U/L (38-126) Total Protein 5.0 g/dL L g/dL (6.3-8.2) Albumin 2.6 g/dL L g/dL (3.5-5.1) Stl Occult Blood (IFOB) Positive H (N) 10/16/20 10/16/20 06:16 14:44 WBC RBC Hgb Hct MCV MCH MCHC RDW Plt Count MPV Immature Gran % (Auto) Neut % (Auto) Lymph % (Auto) [place] % (Auto) Eos % (Auto) Baso % (Auto) Lymph # (Auto) [place] # (Auto) Eos # (Auto) Baso # (Auto) Abs Immat Gran (auto) Absolute Neuts (auto) Absolute Nucleated RBC Nucleated RBC % ESR 135 mm/hr H mm/hr (0-20) Sodium Potassium 3.6 mmol/L mmol/L
[2020-10-17] VITALS (9 sets, daily range): BP systolic 74–141; BP diastolic 36–77; PULSE 80–95; RESP 16–37; TEMP 36.2–36.5; O2SAT 95–98
--- NOTE | 2020-10-17 | PC.NURSE ---
Bowel prep completed.
[2020-10-17] MEDS: ONDANSETRON INJ 4 MG/2 ML VIAL IV PUSH ×4 (00:55→16:28)
[2020-10-17] MEDS: metroNIDAZOLE 500 MG/ISO 100ML 500 MG/100 ML BAG 100 MG IVPB ×3 (01:05→18:39)
[2020-10-17] MEDS: MAGNESIUM CITRATE 300 ML BTL 150 ML PO (04:00)
[2020-10-17] MEDS: CIPROFLOXACIN 400 MG/D5W 200ML 200 ML 200 MG IVPB ×2 (06:39→17:22)
[2020-10-17 06:51] LABS: Anion Gap 3 mmol/L (8-16); Blood Urea Nitrogen 3 mg/dL (7-17); Carbon Dioxide 33 mmol/L (22-30); Chloride 97 mmol/L (98-107); Estimated CRCL calculation 73 ml/min; Estimated Glomerular Filt Rate > 60; Glucose 104 mg/dL (65-105); Sodium 133 mmol/L (137-145)
[2020-10-17 07:13] LABS: Basophils Absolute Auto 0.1 K/mm3 (0.0-0.1); Basophils Percent Auto 0.4 % (0.2-1.2); Eosinophils Absolute Auto 0.2 K/mm3 (0-0.3); Eosinophils Percent Auto 1.3 % (0-4.4); Hematocrit 30.4 % (37.0-47.0); Hemoglobin 9.5 g/dL (12.0-15.0); Immature Granulocyte Absolute 0.18 K/mm3 (0.00-0.031); Immature Granulocyte Percent A 1.5 % (0-0.5); Lymphocytes Absolute Auto 0.63 K/mm3 (0.9-3.2); Lymphocytes Percent Auto 5.3 % (18.3-44.2); Mean Corpuscular HGB Conc 31.3 g/dl (32-36); Mean Corpuscular Hemoglobin 25.7 pg (26-34); Mean Corpuscular Volume 82.4 fl (80-100); Mean Platelet Volume 8.1 fl (7.4-10.4); Monocytes Absolute Auto 1.1 K/mm3 (0.1-0.6); Monocytes Percent Auto 9.2 % (2.6-8.5); Neutrophils Absolute Auto 9.9 K/mm3 (1.3-6.7); Neutrophils Percent Auto 82.3 % (45.5-73.1); Platelet Count Result 519 k/mm3 (150-375); Red Blood Count 3.69 M/mm3 (4.2-5.4); Red Cell Distribution Width 13.6 % (11.5-14.5)
[2020-10-17 09:53] LABS: Erythrocyte Sedimentation Rate 114 mm/hr (0-20)
--- NOTE | 2020-10-17 11:45 | PC.NURSE ---
Pt to GI lab per wheelchair
[2020-10-17] MEDS: LACTATED RINGERS 1,000 ML 150 ML IV CONT (12:00)
--- NOTE | 2020-10-17 12:34 | WPDANESEPPF ---
Anes - Initial Pre Proc Eval Procedure: Operation Date: 10/17/20 12:45 Proposed Procedures p Colonoscopy - Solitario Crockett MD Date/Time: 10/17/20 12:34 Surgeon: Triny Maldonado PA-C Pre Op Diagnosis: Sepsis, Colitis Patient Data Age: 75 Gender: F Height: 5 ft 5 in Weight: 85.8 kg Last Vital Signs Temp 97.2 F L 10/17/20 12:01 Pulse 86 10/17/20 12:01 Resp 18 10/17/20 12:01 BP 127/58 L 10/17/20 12:01 Pulse Ox 96 10/17/20 12:01 Allergies Allergy/AdvReac Type Severity Reaction Status Date / Time No Known Allergies Allergy Verified 06/07/20 08:26 Home Medications Medication Instructions Recorded Confirmed Type Turmeric Cbd Oil Hemp Isolate 250 mg PO DAILY 10/13/20 10/13/20 History acetaminophen 1,000 mg PO QID PRN 10/13/20 10/13/20 History cefprozil 250 mg PO DAILY 10/13/20 10/13/20 History celecoxib 200 mg PO DAILY 10/13/20 10/13/20 History duloxetine 60 mg PO DAILY 10/13/20 10/13/20 History magnesium oxide 500 mg PO DAILY 10/13/20 10/13/20 History metoprolol tartrate 50 mg PO BID 10/13/20 10/13/20 History tramadol 50 mg PO QID PRN 10/13/20 10/13/20 History trimethoprim 100 mg PO HS 10/13/20 10/13/20 History Laboratory Tests 10/16/20 10/17/20 10/17/20 14:44 06:20 06:20 WBC 12.0 K/mm3 H K/mm3 (4.5-10.0) RBC 3.69 M/mm3 L M/mm3 (4.2-5.4) Hgb 9.5 g/dL L g/dL (12.0-15.0) Hct 30.4 % L % (37.0-47.0) MCV 82.4 fl fl (80-100) MCH 25.7 pg L pg (26-34) MCHC 31.3 g/dl L g/dl (32-36) RDW 13.6 % % (11.5-14.5) Plt Count 519 k/mm3 H k/mm3 (150-375) MPV 8.1 fl fl (7.4-10.4) Immature Gran % (Auto) 1.5 % H % (0-0.5) Neut % (Auto) 82.3 % H % (45.5-73.1) Lymph % (Auto) 5.3 % L % (18.3-44.2) [place] % (Auto) 9.2 % H % (2.6-8.5) Eos % (Auto) 1.3 % % (0-4.4) Baso % (Auto) 0.4 % % (0.2-1.2) Lymph # (Auto) 0.63 K/mm3 L K/mm3 (0.9-3.2) [place] # (Auto) 1.1 K/mm3 H K/mm3 (0.1-0.6) Eos # (Auto) 0.2 K/mm3 K/mm3 (0-0.3) Baso # (Auto) 0.1 K/mm3 K/mm3 (0.0-0.1) Abs Immat Gran (auto) 0.18 K/mm3 H K/mm3 (0.00-0.031) Absolute Neuts (auto) 9.9 K/mm3 H K/mm3 (1.3-6.7) Absolute Nucleated RBC 0.0 K/mm3 K/mm3 (0.0-0.012) Nucleated RBC % 0.0 % % (0.0-0.2) ESR 114 mm/hr H mm/hr (0-20) Sodium 133 mmol/L L mmol/L (137-145) Potassium 3.6 mmol/L mmol/L 3.0 mmol/L L mmol/L (3.4-5.0) (3.4-5.0) Chloride 97 mmol/L L mmol/L (98-107) Carbon Dioxide 33 mmol/L H mmol/L (22-30) Anion Gap 3 mmol/L L mmol/L (8-16) BUN 3 mg/dL L mg/dL (7-17) Creatinine 0.60 mg/dL L mg/dL (0.7-1.0) Estim Creat Clear Calc 73 ml/min ml/min Estimated GFR > 60 (59 - ) Glucose 104 mg/dL mg/dL (65-105) Calcium 8.0 mg/dL L mg/dL (8.4-10.2) Magnesium 2.4 mg/dL H mg/dL (1.6-2.3) Patient hx anesthesia problems: none Family hx anesthesia problems: none [facility] Past Medical History Medical History Anemia Arthritis Chronic UTI Colitis DDD (degenerative disc disease) Depression Hypertension Leukocytosis Psoriasis Sepsis Sinusitis Suspected 2019-nCoV infection Surgical History Surgical History H/O: hysterectomy History of laminectomy History of left knee replacement Family History Family History Mother Leukemia Father Heart attack Sibling Heart abnormality Social History Social History Smoking status: Never smoker Alcohol intake: never Substance use: never Spiritual care concerns: No
[2020-10-17] MEDS: METOPROLOL TARTRATE 50 MG TAB PO (14:07)
[2020-10-17] MEDS: CELECOXIB 200 MG CAPSULE PO (14:07)
[2020-10-17] MEDS: DULoxetine HCL 60 MG CAPSULE.DR PO (14:07)
[2020-10-17] MEDS: ENOXAPARIN 40 MG/0.4 ML SYRINGE SUB-Q (14:13)
[2020-10-17] MEDS: POTASSIUM CHLORIDE 20 MEQ TABLET 40 MEQ PO (14:13)
--- NOTE | 2020-10-17 14:27 | PM.IMPN ---
Progress Note: A&P Assessment and Plan (1) Colitis: Code(s): K52.9 - Noninfective gastroenteritis and colitis, unspecified Status: Acute Assessment and Plan: Persistent symptoms (initially started 05/2020) of nonbloody diarrhea, nausea/vomiting, and abdominal fevers with subjective fevers occasionally. Patient again has evidence of colitis on CT abd/pelvis. She was initially placed on IV zosyn and PO vanc for empiric treatment of c diff colitis or other etiology of colitis, however, she was unable to tolerate PO initially, thus she was switched to IV flagyl for c diff coverage, and IV cipro. Cdiff, giardia, E coli, and cyptosporidium testing has returned as negative. BCx shows NGTD x 2. Symptoms and leukocytosis are improving. Other stool studies are pending. IBD on differential, although patient has no personal or family history She believes she has an appointment with Dr. Adams in 11/2020 whom she has not yet established care. Dr. Adams now consulted and appreciate input. Dr. Adams will be advancing diet as tolerated Colonoscopy will be performed today by Dr. Adams Will continue with treatment with IV flagyl and Cipro for now given improvement and await further recommendations from GI FLD for now; advance diet slowly and as tolerated Await other stool studies Lovenox for dvt PPX; Venous doppler negative for DVT PO home meds have been resumed for now, but may hold if not tolerating diet. Will stop/hold oral home antibiotics (appears she takes trimethoprim for recurrent/chronic UTI and cefprozil presumed to be for her recent sinusitis) Monitor closely Daily labs (2) Suspected 2019-nCoV infection: Code(s): Z20.822 - Contact with and (suspected) exposure to COVID-19 Status: Ruled-out Assessment and Plan: Patient has been swabbed for COVID in ED. This is negative (3) Hypertension: Code(s): I10 - Essential (primary) hypertension Status: Acute Assessment and Plan: BP reasonable at 141/67 this morning. Stable. continue home metoprolol if tolerating PO (4) Depression: Code(s): F32.9 - Major depressive disorder, single episode, unspecified Status: Inactive Assessment and Plan: no acute issues Continue home meds if tolerating PO (5) Anemia: Code(s): D64.9 - Anemia, unspecified Status: Acute Assessment and Plan: H&H slowly trending down; slightly decreased since 05/2020 (11.8 at that time). Iron panel suggestive of ACD but due to low % saturation will give IV Venofer for some Acute iron deficiency anemia and discharge on Ferrous sulfate. Likely colitis etiology? IBD? No signs/symptoms of acute blood loss. Possible dilutional effect from IV fluids, as well H&H was stable at 9/30%. Monitor H&H Transfuse as needed continue treatment of colitis as above Time Spent With Patient Time with patient: 25 - 35 minutes Subjective Date/time seen: 10/17/20 14:27 Interval history: Patient is a 75 year old female with history of recent diagnosis of colitis, recurrent UTIs, depression, recent sinusitis (treated with cipro per patient), and hypertension who is seen in follow up for colitis. Date of service 10/17/2020: Patient reports feeling better today. She did undergo colonoscopy prep last night. She denies any more abdominal pain or cramping, nausea, vomiting. She denies any fevers, chills, cough, shortness of breath, chest pain, lightheadedness, dizziness, leg swelling, calf pain or any other symptoms at this time. Review of Systems Review of Systems: All systems reviewed & are unremarkable except as noted in HPI and below Exam Narrative: Exam Narrative: General: 75-year-old woman sitting up in bed watching TV. Appears comfortable. In no acut
[2020-10-17] MEDS: MESALAMINE 400 MG DELAYED RELEASE CAPSULE 800 MG PO (17:25)
[2020-10-18] MEDS: metroNIDAZOLE 500 MG/ISO 100ML 500 MG/100 ML BAG 100 MG IVPB ×3 (01:56→18:03)
[2020-10-18] MEDS: ONDANSETRON INJ 4 MG/2 ML VIAL IV PUSH ×2 (01:58→09:07)
[2020-10-18] MEDS: CIPROFLOXACIN 400 MG/D5W 200ML 200 ML 200 MG IVPB ×2 (05:33→16:59)
[2020-10-18] MEDS: ACETAMINOPHEN 500 MG TABLET 1000 MG PO (05:34)
[2020-10-18 06:00] VITALS: BP 136/61; PULSE 85; RESP 20; TEMP 36.7; O2SAT 94
[2020-10-18 06:49] LABS: Basophils Absolute Auto 0.1 K/mm3 (0.0-0.1); Basophils Percent Auto 0.5 % (0.2-1.2); Eosinophils Absolute Auto 0.2 K/mm3 (0-0.3); Eosinophils Percent Auto 1.7 % (0-4.4); Hemoglobin 8.9 g/dL (12.0-15.0); Immature Granulocyte Absolute 0.23 K/mm3 (0.00-0.031); Lymphocytes Absolute Auto 0.83 K/mm3 (0.9-3.2); Lymphocytes Percent Auto 7.2 % (18.3-44.2); Mean Corpuscular HGB Conc 30.7 g/dl (32-36); Mean Corpuscular Hemoglobin 25.6 pg (26-34); Mean Corpuscular Volume 83.6 fl (80-100); Monocytes Absolute Auto 1.3 K/mm3 (0.1-0.6); Monocytes Percent Auto 11.3 % (2.6-8.5); Neutrophils Percent Auto 77.3 % (45.5-73.1); Platelet Count Result 482 k/mm3 (150-375); Red Blood Count 3.47 M/mm3 (4.2-5.4); White Blood Count 11.6 K/mm3 (4.5-10.0)
[2020-10-18 07:03] LABS: Anion Gap 3 mmol/L (8-16); Blood Urea Nitrogen 3 mg/dL (7-17); Calcium 7.8 mg/dL (8.4-10.2); Carbon Dioxide 30 mmol/L (22-30); Chloride 100 mmol/L (98-107); Estimated CRCL calculation 73 ml/min; Estimated Glomerular Filt Rate > 60; Glucose 118 mg/dL (65-105); Magnesium 2.2 mg/dL (1.6-2.3); Potassium 3.4 mmol/L (3.4-5.0); Sodium 133 mmol/L (137-145)
[2020-10-18 08:54] LABS: Erythrocyte Sedimentation Rate 109 mm/hr (0-20)
[2020-10-18 08:59] VITALS: PULSE 84
[2020-10-18] MEDS: ENOXAPARIN 40 MG/0.4 ML SYRINGE SUB-Q (08:59)
[2020-10-18] MEDS: MESALAMINE 400 MG DELAYED RELEASE CAPSULE 800 MG PO ×3 (08:59→17:27)
[2020-10-18] MEDS: METOPROLOL TARTRATE 50 MG TAB PO ×2 (08:59→17:03)
[2020-10-18] MEDS: methylPREDNISolone SOD SUCC 40 MG VIAL IV PUSH (08:59)
[2020-10-18] MEDS: CELECOXIB 200 MG CAPSULE PO (09:00)
[2020-10-18] MEDS: DULoxetine HCL 60 MG CAPSULE.DR PO (09:00)
--- NOTE | 2020-10-18 10:49 | WPDANESPN ---
Anes - Prog Note Post-Op Date/Time: 10/18/20 10:49 Cardiovascular status: normal Respiratory status: normal Airway patency: baseline Mental status: baseline Post-Op hydration status: normal Vital Signs: Last Vital Signs Temp 36.7 C 10/18/20 06:00 Pulse 84 10/18/20 08:59 Resp 20 10/18/20 06:00 BP 136/61 10/18/20 06:00 Pulse Ox 94 10/18/20 06:00 Pain Score (VAS): 0 I/O: Intake & Output 10/17/20 10/18/20 10/18/20 23:59 07:59 15:59 Intake Total 540 700 Output Total 350 Balance 540 350 Laboratory Tests 10/18/20 06:37 10/18/20 06:37 10/18/20 10/18/20 06:37 06:37 WBC 11.6 H RBC 3.47 L Hgb 8.9 L Hct 29.0 L MCV 83.6 MCH 25.6 L MCHC 30.7 L RDW 14.0 Plt Count 482 H MPV 8.0 Immature Gran % (Auto) 2.0 H Neut % (Auto) 77.3 H Lymph % (Auto) 7.2 L [place] % (Auto) 11.3 H Eos % (Auto) 1.7 Baso % (Auto) 0.5 Lymph # (Auto) 0.83 L [place] # (Auto) 1.3 H Eos # (Auto) 0.2 Baso # (Auto) 0.1 Abs Immat Gran (auto) 0.23 H Absolute Neuts (auto) 9.0 H Absolute Nucleated RBC 0.0 Nucleated RBC % 0.0 ESR 109 H Sodium 133 L Potassium 3.4 Chloride 100 Carbon Dioxide 30 Anion Gap 3 L BUN 3 L Creatinine 0.60 L Estim Creat Clear Calc 73 Estimated GFR > 60 Glucose 118 H Calcium 7.8 L Magnesium 2.2 Microbiology 10/14/20 10:28 Stool Stool for WBCs - Final 10/14/20 10:28 Stool Escherichia coli Shiga Toxins - Final 10/14/20 10:28 Stool Campylobacter Culture - Final 10/14/20 10:28 Stool Salmonella/Shigella Culture - Final 10/14/20 10:28 Stool Clostridioides difficile Toxin Assay - Final 10/14/20 10:28 Stool Cryptosporidium Exam - Final 10/14/20 10:28 Stool Giardia Antigen (CAROLINE) - Final Post-procedural complaints: none Patient Feedback: Patient satisfied with anesthetic care.
--- NOTE | 2020-10-18 11:28 | PCNFU ---
Nutrition Follow-Up Complete: Inadequate Oral Intake as related to colitis as evidenced by weight loss and decreased appetite reported. Goal: Meet estimated nutritional needs Patient is progressing towards goal. We will continue current goal. Pt current nutrition is full liquids. Nutrition recommendation: advance as tolerated per MD orders. Last recorded weight is 85.8 kg,no new weight. Bowel Motility:multiple BM noted 10/17 Labs Reviewed:Na 133,BUN 3,Glu 118 Meds Noted:Zofran, Lopressor, Flagyl,Cipro Additional Notes: Nutrition follow up. Spoke with patient today, she states to tolerating full liquid diet had yogurt and applesauce. 50-75% of meals consumed. She is also receiving Ensure Enlive BID providing an additional 350 kcals and 20 gms protein. Monitoring: Will monitor every 5 days.
[2020-10-18 14:00] VITALS: BP 143/68; PULSE 99; RESP 16; TEMP 36.6; O2SAT 93
--- NOTE | 2020-10-18 15:20 | PM.IMPN ---
Progress Note: A&P Assessment and Plan (1) Colitis: Code(s): K52.9 - Noninfective gastroenteritis and colitis, unspecified Status: Acute Assessment and Plan: Persistent symptoms (initially started 05/2020) of nonbloody diarrhea, nausea/vomiting, and abdominal fevers with subjective fevers occasionally. Patient again has evidence of colitis on CT abd/pelvis. She was initially placed on IV zosyn and PO vanc for empiric treatment of c diff colitis or other etiology of colitis, however, she was unable to tolerate PO initially, thus she was switched to IV flagyl for c diff coverage, and IV cipro. Cdiff, giardia, E coli, and cyptosporidium testing has returned as negative. BCx shows NGTD x 2. Symptoms and leukocytosis are improving. Other stool studies are pending. IBD on differential, although patient has no personal or family history She believes she has an appointment with Dr. Adams in 11/2020 whom she has not yet established care. Dr. Adams now consulted and appreciate input. Dr. Adams will be advancing diet as tolerated Colonoscopy showed inflammation which could represent ulcerative colitis. She was started on IV Solu-Medrol and mesalamine t.i.d. by Dr. Adams. Will continue with treatment with IV flagyl and Cipro for now given improvement and await further recommendations from GI [facility] for now; advance diet slowly and as tolerated Stool cultures were negative. Lovenox for dvt PPX; Venous doppler negative for DVT PO home meds have been resumed for now, but may hold if not tolerating diet. Will stop/hold oral home antibiotics (appears she takes trimethoprim for recurrent/chronic UTI and cefprozil presumed to be for her recent sinusitis) Monitor closely Daily labs (2) Suspected 2019-nCoV infection: Code(s): Z20.822 - Contact with and (suspected) exposure to COVID-19 Status: Ruled-out Assessment and Plan: Patient has been swabbed for COVID in ED. This is negative (3) Hypertension: Code(s): I10 - Essential (primary) hypertension Status: Acute Assessment and Plan: BP reasonable at 136/61 this morning. Stable. continue home metoprolol if tolerating PO (4) Depression: Code(s): F32.9 - Major depressive disorder, single episode, unspecified Status: Inactive Assessment and Plan: no acute issues Continue home meds if tolerating PO (5) Anemia: Code(s): D64.9 - Anemia, unspecified Status: Acute Assessment and Plan: H&H slowly trending down; slightly decreased since 05/2020 (11.8 at that time). Iron panel suggestive of ACD but due to low % saturation will give IV Venofer for some Acute iron deficiency anemia and discharge on Ferrous sulfate. Likely colitis etiology? IBD? No signs/symptoms of acute blood loss. Possible dilutional effect from IV fluids, as well H&H was stable at 8.9/29%. Monitor H&H Transfuse as needed continue treatment of colitis as above Time Spent With Patient Time with patient: 25 - 35 minutes Subjective Date/time seen: 10/18/20 15:20 Interval history: Patient is a 75 year old female with history of recent diagnosis of colitis, recurrent UTIs, depression, recent sinusitis (treated with cipro per patient), and hypertension who is seen in follow up for colitis. Date of service 10/18/2020: Patient reports feeling better today. She is on a full liquid diet, tolerating it well other than some nausea but believes it is a side effect of the antibiotics. She still having loose stools multiple today. She denies any more abdominal pain or cramping, vomiting. She denies any fevers, chills, cough, shortness of breath, chest pain, lightheadedness, dizziness, leg swelling, calf pain or any other symptoms at this time. Denies any hematuria or
[2020-10-18 17:03] VITALS: PULSE 99
[2020-10-18 20:00] VITALS: RESP 18; O2SAT 96
[2020-10-18 22:00] VITALS: BP 118/51; PULSE 79; RESP 18; TEMP 36.5; O2SAT 96
[2020-10-19] MEDS: metroNIDAZOLE 500 MG/ISO 100ML 500 MG/100 ML BAG 100 MG IVPB ×3 (01:28→18:03)
[2020-10-19] MEDS: ONDANSETRON INJ 4 MG/2 ML VIAL IV PUSH ×3 (01:30→23:38)
[2020-10-19 05:35] VITALS: BP 135/66; PULSE 88; RESP 18; TEMP 36.7; O2SAT 95
[2020-10-19] MEDS: CIPROFLOXACIN 400 MG/D5W 200ML 200 ML 200 MG IVPB ×2 (05:36→16:51)
[2020-10-19 06:14] LABS: Hemoglobin 8.8 g/dL (12.0-15.0); Mean Corpuscular HGB Conc 31.4 g/dl (32-36); Mean Corpuscular Hemoglobin 26.1 pg (26-34); Mean Corpuscular Volume 83.1 fl (80-100); Platelet Count Result 535 k/mm3 (150-375); Red Blood Count 3.37 M/mm3 (4.2-5.4); Red Cell Distribution Width 14.2 % (11.5-14.5)
[2020-10-19 06:29] LABS: Anion Gap 1 mmol/L (8-16); Blood Urea Nitrogen 12 mg/dL (7-17); Calcium 8.2 mg/dL (8.4-10.2); Carbon Dioxide 33 mmol/L (22-30); Chloride 99 mmol/L (98-107); Estimated CRCL calculation 64 ml/min; Estimated Glomerular Filt Rate > 60; Glucose 133 mg/dL (65-105); Potassium 3.7 mmol/L (3.4-5.0); Sodium 133 mmol/L (137-145)
[2020-10-19 07:03] LABS: Erythrocyte Sedimentation Rate > 140 mm/hr (0-20)
[2020-10-19] MEDS: MESALAMINE 400 MG DELAYED RELEASE CAPSULE 800 MG PO ×2 (08:09→16:50)
[2020-10-19] MEDS: DULoxetine HCL 60 MG CAPSULE.DR PO (08:09)
[2020-10-19] MEDS: CELECOXIB 200 MG CAPSULE PO (08:10)
[2020-10-19] MEDS: methylPREDNISolone SOD SUCC 40 MG VIAL IV PUSH (08:10)
[2020-10-19] MEDS: METOPROLOL TARTRATE 50 MG TAB PO ×2 (08:10→16:50)
[2020-10-19] MEDS: ENOXAPARIN 40 MG/0.4 ML SYRINGE SUB-Q (08:10)
[2020-10-19] MEDS: FERROUS SULFATE 324 MG TABLET PO ×2 (12:18→16:50)
--- NOTE | 2020-10-19 13:43 | WPDGIPROGNO ---
Progress Note: A&P Assessment and Plan (1) Colitis: Code(s): K52.9 - Noninfective gastroenteritis and colitis, unspecified Status: Acute Assessment and Plan: colonoscopy c/w colitis, possible UC and started on mesalamine and iv steroids, she is doing much better stool samples negative for infection, + WBC stool probably she can go home tomorrow with 3 more days of oral antibiotics and slow taper prednisone (starting out with 40mg daily then decrease 10 mg every week) with follow up office early November (she already has appointment with me) (2) Leukocytosis: Code(s): D72.829 - Elevated white blood cell count, unspecified Status: Acute Assessment and Plan: elevated wbc now probably from use of steroids, continue to monitor (3) Hypertension: Code(s): I10 - Essential (primary) hypertension Status: Acute Subjective Date/time seen: 10/19/20 13:43 Interval history: she is doing much better and tolerating bland diet, less abdominal pain Review of Systems Review of Systems: All systems reviewed & are unremarkable except as noted in HPI and below Exam Const: General: comfortable and no acute distress HENMT: General nose exam: Normal nares present Eyes: General: appearance normal, both eyes and all related structures Neck: Neck: no JVD Resp: Auscultation: clear to auscultation bilaterally Cardio: Rate: regular rate Rhythm: regular rhythm GI: Inspection: non-distended GI Palp: Yes Soft to palpation and No Guarding due to palpation present (GI) Auscultation: normal bowel sounds Other: exam is improved Skin: General skin exam: normal color Neuro: General: gait normal Speech: normal speech Extrem: General: normal to inspection Psych: Mental Status: mental status grossly normal Objective Data Vital Signs Vital Signs: Vital Signs - 24 hr 10/18/20 14:00 10/18/20 17:03 10/18/20 20:00 Temperature 97.9 F Pulse Rate 99 99 Respiratory Rate 16 18 Blood Pressure 143/68 H Pulse Oximetry 93 96 10/18/20 22:00 10/19/20 05:35 Temperature 97.7 F 98.0 F Pulse Rate 79 88 Respiratory Rate 18 18 Blood Pressure 118/51 L 135/66 Pulse Oximetry 96 95 Intake/Output Intake/Output: Intake & Output 10/16/20 10/17/20 10/18/20 10/19/20 23:59 23:59 23:59 23:59 Intake Total 2505 2195 2485 1355 Output Total 1025 700 850 680 Balance 1480 1495 1635 675 Meds/Results Medications: Active Medications Generic Name Dose Route Start Last Admin Trade Name Freq PRN Reason Stop Dose Admin Acetaminophen 1,000 mg 10/14/20 07:46 10/18/20 05:34 Acetaminophen 500 Mg Tablet PO 1,000 mg QID PRN Administration PAIN RATED 1-3 Celecoxib 200 mg 10/14/20 09:00 10/19/20 08:10 Celecoxib 200 Mg Capsule PO 200 mg DAILY JAYESH Administration Duloxetine HCl 60 mg 10/14/20 09:00 10/19/20 08:09 Duloxetine Hcl 60 Mg Capsule.Dr PO 60 mg DAILY JAYESH Administration Enoxaparin Sodium 40 mg 10/14/20 09:00 10/19/20 08:10 Enoxaparin 40 Mg/0.4 Ml Syringe SUB-Q 40 mg DAILY JAYESH Administration Ferrous Sulfate 324 mg 10/19/20 08:00 10/19/20 12:18 Ferrous Sulfate 324 Mg Tablet PO 324 mg BIDWM JAYESH Administration Metronidazole 500 mg in 100 mls @ 100 mls/hr 10/14/20 10:00 10/19/20 12:20 Flagyl 500 Mg/Iso Soln 100 Ml IVPB Infused Q8H JAYESH Infusion Ciprofloxacin/Dextrose 200 mls @ 200 mls/hr 10/15/20 06:00 10/19/20 06:36 Cipro 400 Mg/D5w 200 Ml IVPB Infused Q12H JAYESH Infusion Mesalamine 800 mg 10/17/20 17:00 10/19/20 08:09 Mesalamine 400 Mg Delayed Release Capsule PO 800 mg TID JAYESH Administration Methylprednisolone Sodium Succinate 40 mg 10/18/20 09:00 10/19/20 08:10 Methylprednisolone Sod Succ 40 Mg Vial IV PUSH 40 mg DAILY JAYESH Administration Metoprolol Tartrate 50 mg 10/14/20 09:00 10/19/20 08:10 Metoprolol Tartrate 50 Mg Tab PO 50 mg BID JAYESH Administration Ondansetron HCl 4 mg
[2020-10-19 14:00] VITALS: BP 129/64; PULSE 85; RESP 16; TEMP 36.2; O2SAT 94
--- NOTE | 2020-10-19 15:58 | PM.IMPN ---
Progress Note: A&P Assessment and Plan (1) Colitis: Code(s): K52.9 - Noninfective gastroenteritis and colitis, unspecified Status: Acute Assessment and Plan: Persistent symptoms (initially started 05/2020) of nonbloody diarrhea, nausea/vomiting, and abdominal fevers with subjective fevers occasionally. Patient again has evidence of colitis on CT abd/pelvis. She was initially placed on IV zosyn and PO vanc for empiric treatment of c diff colitis or other etiology of colitis, however, she was unable to tolerate PO initially, thus she was switched to IV flagyl for c diff coverage, and IV cipro. Cdiff, giardia, E coli, and cyptosporidium testing has returned as negative. BCx shows NGTD x 2. Symptoms and leukocytosis are improving. Other stool studies are pending. IBD on differential, although patient has no personal or family history She believes she has an appointment with Dr. Adams in 11/2020 whom she has not yet established care. Dr. Adams now consulted and appreciate input. Dr. Adams will be advancing diet as tolerated Colonoscopy showed inflammation which could represent ulcerative colitis. She was started on IV Solu-Medrol and mesalamine t.i.d. by Dr. Adams. Will continue with treatment with IV flagyl and Cipro for now given improvement and await further recommendations from GI He is on a regular diet complains discharge tomorrow. Stool cultures were negative. Lovenox for dvt PPX; Venous doppler negative for DVT PO home meds have been resumed for now, but may hold if not tolerating diet. Will stop/hold oral home antibiotics (appears she takes trimethoprim for recurrent/chronic UTI and cefprozil presumed to be for her recent sinusitis) Monitor closely Daily labs (2) Suspected 2019-nCoV infection: Code(s): Z20.822 - Contact with and (suspected) exposure to COVID-19 Status: Ruled-out Assessment and Plan: Patient has been swabbed for COVID in ED. This is negative (3) Hypertension: Code(s): I10 - Essential (primary) hypertension Status: Acute Assessment and Plan: BP reasonable at 129/64 year 129/64 this morning. Stable. continue home metoprolol if tolerating PO (4) Depression: Code(s): F32.9 - Major depressive disorder, single episode, unspecified Status: Inactive Assessment and Plan: no acute issues Continue home meds if tolerating PO (5) Anemia: Code(s): D64.9 - Anemia, unspecified Status: Acute Assessment and Plan: H&H slowly trending down; slightly decreased since 05/2020 (11.8 at that time). Iron panel suggestive of ACD but due to low % saturation will give IV Venofer for some Acute iron deficiency anemia and discharge on Ferrous sulfate. Likely colitis etiology? IBD? No signs/symptoms of acute blood loss. Possible dilutional effect from IV fluids, as well H&H was stable at 8.8/28%. Monitor H&H Transfuse as needed continue treatment of colitis as above Time Spent With Patient Time with patient: 25 - 35 minutes Subjective Date/time seen: 10/19/20 15:58 Interval history: Patient is a 75 year old female with history of recent diagnosis of colitis, recurrent UTIs, depression, recent sinusitis (treated with cipro per patient), and hypertension who is seen in follow up for colitis. Date of service 10/19/2020: Patient reports feeling better today. She is tolerating a regular diet without any issues. She had a bowel movement today which was not as loose as it has been which is promising. She denies any more abdominal pain or cramping, vomiting. She denies any fevers, chills, cough, shortness of breath, chest pain, lightheadedness, dizziness, leg swelling, calf pain or any other symptoms at this time. Denies any hematuria or melena. R
[2020-10-19 20:00] VITALS: BP 121/62; PULSE 81; PULSE 85; RESP 16; RESP 18; TEMP 36.9; O2SAT 94; O2SAT 95
[2020-10-20] MEDS: metroNIDAZOLE 500 MG/ISO 100ML 500 MG/100 ML BAG 100 MG IVPB ×2 (02:26→09:17)
[2020-10-20 05:58] VITALS: BP 143/70; PULSE 78; RESP 20; TEMP 36.4; O2SAT 97
[2020-10-20] MEDS: CIPROFLOXACIN 400 MG/D5W 200ML 200 ML 200 MG IVPB (06:07)
[2020-10-20 06:32] LABS: Hematocrit 30.6 % (37.0-47.0); Hemoglobin 9.3 g/dL (12.0-15.0)
[2020-10-20 06:45] LABS: Anion Gap 1 mmol/L (8-16); Blood Urea Nitrogen 17 mg/dL (7-17); Calcium 8.1 mg/dL (8.4-10.2); Carbon Dioxide 34 mmol/L (22-30); Chloride 99 mmol/L (98-107); Estimated CRCL calculation 64 ml/min; Estimated Glomerular Filt Rate > 60; Glucose 138 mg/dL (65-105); Potassium 3.8 mmol/L (3.4-5.0); Sodium 134 mmol/L (137-145)
[2020-10-20 08:00] VITALS: PULSE 74; RESP 20; O2SAT 97
[2020-10-20] MEDS: ONDANSETRON INJ 4 MG/2 ML VIAL IV PUSH (08:47)
[2020-10-20] MEDS: MESALAMINE 400 MG DELAYED RELEASE CAPSULE 800 MG PO (09:14)
[2020-10-20 09:15] VITALS: PULSE 74
[2020-10-20] MEDS: methylPREDNISolone SOD SUCC 40 MG VIAL IV PUSH (09:15)
[2020-10-20] MEDS: METOPROLOL TARTRATE 50 MG TAB PO (09:15)
[2020-10-20] MEDS: FERROUS SULFATE 324 MG TABLET PO (09:15)
[2020-10-20] MEDS: DULoxetine HCL 60 MG CAPSULE.DR PO (09:15)
[2020-10-20] MEDS: ENOXAPARIN 40 MG/0.4 ML SYRINGE SUB-Q (09:15)
[2020-10-20] MEDS: CELECOXIB 200 MG CAPSULE PO (09:16)
--- NOTE | 2020-10-20 10:50 | WPDGIPROGNO ---
Progress Note: A&P Assessment and Plan (1) Colitis: Code(s): K52.9 - Noninfective gastroenteritis and colitis, unspecified Status: Acute Assessment and Plan: colonoscopy c/w colitis, possible UC and started on mesalamine and iv steroids stool samples negative for infection, + WBC stool low fiber diet she can go home today with 3 more days of oral antibiotics and slow taper prednisone (40mg daily then decrease 10 mg every week) she already has appointment to see me in November (2) Leukocytosis: Code(s): D72.829 - Elevated white blood cell count, unspecified Status: Acute Assessment and Plan: elevated wbc probably from use of steroids, afebrile and stool samples negative for infection (3) Hypertension: Code(s): I10 - Essential (primary) hypertension Status: Acute Subjective Date/time seen: 10/20/20 10:50 Interval history: she is tolerating diet, keep feeling better and stool getting form Review of Systems Review of Systems: All systems reviewed & are unremarkable except as noted in HPI and below Exam Const: General: comfortable and no acute distress HENMT: General nose exam: Normal nares present Eyes: General: appearance normal, both eyes and all related structures Neck: Neck: no JVD Resp: Auscultation: clear to auscultation bilaterally Cardio: Rate: regular rate Rhythm: regular rhythm GI: Inspection: non-distended GI Palp: Yes Soft to palpation and No Guarding due to palpation present (GI) Auscultation: normal bowel sounds Other: exam is improved Skin: General skin exam: normal color Neuro: General: gait normal Speech: normal speech Extrem: General: normal to inspection Psych: Mental Status: mental status grossly normal Objective Data Vital Signs Vital Signs: Vital Signs - 24 hr 10/19/20 14:00 10/19/20 20:00 10/20/20 05:58 Temperature 97.2 F L 98.4 F 97.6 F Pulse Rate 85 81 78 Respiratory Rate 16 18 20 Blood Pressure 129/64 121/62 143/70 H Pulse Oximetry 94 95 97 10/20/20 09:15 Temperature Pulse Rate 74 Respiratory Rate Blood Pressure Pulse Oximetry Intake/Output Intake/Output: Intake & Output 10/17/20 10/18/20 10/19/20 10/20/20 23:59 23:59 23:59 23:59 Intake Total 2199 6460 3455 349 Output Total 700 850 680 920 Balance 1495 163 2775 -401 Meds/Results Medications: Active Medications Generic Name Dose Route Start Last Admin Trade Name Freq PRN Reason Stop Dose Admin Acetaminophen 1,000 mg 10/14/20 07:46 10/18/20 05:34 Acetaminophen 500 Mg Tablet PO 1,000 mg QID PRN Administration PAIN RATED 1-3 Celecoxib 200 mg 10/14/20 09:00 10/20/20 09:16 Celecoxib 200 Mg Capsule PO 200 mg DAILY JAYESH Administration Duloxetine HCl 60 mg 10/14/20 09:00 10/20/20 09:15 Duloxetine Hcl 60 Mg Capsule.Dr PO 60 mg DAILY JAYESH Administration Enoxaparin Sodium 40 mg 10/14/20 09:00 10/20/20 09:15 Enoxaparin 40 Mg/0.4 Ml Syringe SUB-Q 40 mg DAILY JAYESH Administration Ferrous Sulfate 324 mg 10/19/20 08:00 10/20/20 09:15 Ferrous Sulfate 324 Mg Tablet PO 324 mg BIDWM JAYESH Administration Metronidazole 500 mg in 100 mls @ 100 mls/hr 10/14/20 10:00 10/20/20 09:17 Flagyl 500 Mg/Iso Soln 100 Ml IVPB 100 mls/hr Q8H JAYESH Administration Ciprofloxacin/Dextrose 200 mls @ 200 mls/hr 10/15/20 06:00 10/20/20 07:05 Cipro 400 Mg/D5w 200 Ml IVPB Infused Q12H JAYESH Infusion Mesalamine 800 mg 10/17/20 17:00 10/20/20 09:14 Mesalamine 400 Mg Delayed Release Capsule PO 800 mg TID JAYESH Administration Methylprednisolone Sodium Succinate 40 mg 10/18/20 09:00 10/20/20 09:15 Methylprednisolone Sod Succ 40 Mg Vial IV PUSH 40 mg DAILY JAYESH Administration Metoprolol Tartrate 50 mg 10/14/20 09:00 10/20/20 09:15 Metoprolol Tartrate 50 Mg Tab PO 50 mg BID JAYESH Administration Ondansetron HCl 4 mg 10/13/20 16:52 10/20/20 08:47 Ondansetron Inj 4 Mg/2 Ml [address]
--- NOTE | 2020-10-20 11:12 | PM.DS ---
DS: Admitting Diagnosis Admitting Diagnosis Admitting Diagnosis: Abdominal pain DS: Discharge Diagnosis Discharge Diagnosis (1) Colitis: Code(s): K52.9 - Noninfective gastroenteritis and colitis, unspecified Status: Acute Assessment and Plan: Persistent symptoms (initially started 05/2020) of nonbloody diarrhea, nausea/vomiting, and abdominal fevers with subjective fevers occasionally. Patient again has evidence of colitis on CT abd/pelvis. She was initially placed on IV zosyn and PO vanc for empiric treatment of c diff colitis or other etiology of colitis, however, she was unable to tolerate PO initially, thus she was switched to IV flagyl for c diff coverage, and IV cipro. Cdiff, giardia, E coli, and cyptosporidium testing has returned as negative. BCx shows NGTD x 2. Symptoms and leukocytosis are improving. Other stool studies are pending. IBD on differential, although patient has no personal or family history She believes she has an appointment with Dr. Adams in 11/2020 whom she has not yet established care. Dr. Adams now consulted and appreciate input. Colonoscopy showed inflammation which could represent ulcerative colitis. She was started on IV Solu-Medrol and mesalamine t.i.d. by Dr. Adams. She was continued on with IV flagyl and Cipro She is feeling well at this time, eating drinking without any issues. Her stool this morning was more normal. Stool cultures were negative. She is stable for discharge to continue oral prednisone taper for 4 weeks, antibiotics for 3 more days, and mesalamine regularly. Have her follow-up with Dr. Adams as scheduled next month. Patient understands and agrees the plan all questions answered. (2) Suspected 2019-nCoV infection: Code(s): Z20.822 - Contact with and (suspected) exposure to COVID-19 Status: Ruled-out Assessment and Plan: Patient has been swabbed for COVID in ED and negative (3) Hypertension: Code(s): I10 - Essential (primary) hypertension Status: Acute Assessment and Plan: BP reasonable at 135/66 this morning. Stable. continue home metoprolol (4) Depression: Code(s): F32.9 - Major depressive disorder, single episode, unspecified Status: Inactive Assessment and Plan: no acute issues Continue home meds if tolerating PO (5) Anemia: Code(s): D64.9 - Anemia, unspecified Status: Acute Assessment and Plan: H&H slowly trending down; slightly decreased since 05/2020 (11.8 at that time). Iron panel suggestive of ACD but due to low % saturation will give IV Venofer for some Acute iron deficiency anemia and discharge on Ferrous sulfate. Likely colitis etiology? IBD? No signs/symptoms of acute blood loss. Possible dilutional effect from IV fluids, as well H&H was stable at 9.3/30%. DS: Summary Hospital Course Hospital Course: Daphne Garrison is a 75 year old female with history of recent diagnosis of colitis, recurrent UTIs, depression, recent sinusitis (treated with cipro per patient), and hypertension who presented to the ED from home on 10/13/2020 with multiple complaints, mainly persistent nonbloody diarrhea and abdominal pain. Patient states her symptoms 05/2020 and 08/2020 when she was diagnosed with colitis and treated with cipro and flagyl. Symptoms occurred again and came to ER for further evaluation. While in the ED, patient's vitals showed T-max of 99.9?, heart rate 97, respiratory rate 21, blood pressure 138/85, oxygen saturation 96% on room air. Initial labs showed leukocytosis at 21,000, normocytic anemia with a hemoglobin of 11, stable hyponatremia at 134, negative troponin x3. Urinalysis without signs of infection. Chest x-ray Showed no acute cardiopulmonary disease. CT head shows no ac
== END 2020-10-20 12:45 | disposition home or self-care (01) | DRG 387 ==
LOC: ANHED 17:01 → ANH3MEDSUR 18:31
PROVIDERS: Internal Medicine Gastroenterology; Physician Assistant; Admitting Provider Family Medicine; Emergency Provider Emergency Medicine; PCP Family Medicine Adolescent Medicine; Visit Provider Family Medicine
PROC: 0DJD8ZZ Inspection of Lower Intestinal Tract, Via Natural or Artificial Opening Endoscopic (ICD-10-PCS; CPT 45378; principal; 2020-10-17 12:45)
DX: K51.90 Ulcerative colitis, unspecified, without complications (principal); Z20.822 Contact with and (suspected) exposure to COVID-19; K57.30 Diverticulosis of large intestine without perforation or abscess without bleeding; K64.8 Other hemorrhoids; D50.9 Iron deficiency anemia, unspecified; I10 Essential (primary) hypertension; D72.829 Elevated white blood cell count, unspecified; F32.9 Major depressive disorder, single episode, unspecified; Z87.440 Personal history of urinary (tract) infections; Z79.2 Long term (current) use of antibiotics; Z79.899 Other long term (current) drug therapy
CPT/HCPCS: 36415; 70450; 71045; 74177; 80048; 80053; 80076; 81001; 82274; 82607; 82728; 82746; 83540; 83550; 83605; 83735; 84132; 84484; 85014; 85018; 85025; 85027; 85610; 85652; 85730; 86140; 87015; 87040; 87045; 87046; 87081; 87177; 87209; 87269; 87272; 87324; 87427; 87804; 87880; 88305; 89055; 93005; 93970; 96361; 96365; 96367; 96375; 96376; 99285; A9270; C9803; G0378; J0131; J0744; J1650; J1756; J1940; J2405; J2543; J2704; J2920; J3475; J3480; J7030; J7120; Q9967; U0003

== ENCOUNTER 2020-11-07 22:48 | Inpatient (IN) | payer MEDICARE, OTHER, SELFPAY ==
--- NOTE | ~2020-11-07 | CT_ITS ---
EXAMINATION: CT abdomen pelvis w con DATE: 11/08/2020 00:00 INDICATION: Abdominal pain. Colitis. TECHNIQUE: Computed tomography (CT) of the abdomen and pelvis was performed with 100 mL Omnipaque-350 intravenous contrast. Automated exposure control and iterative reconstruction technique were employe d. The dose-length product was 801.54 mGy-cm. COMPARISON: 10/13/2020 FINDINGS: Mild emphysema and mild bronchiectatic change at the lung bases. Calcified left lower lobe nodule con sistent with old granulomatous disease. Heart size is normal. No pericardial effusion. Small sliding- type hiatal hernia. Gastric diverticulum at the fundus containing some ingested material. Liver, gall bladder, spleen, pancreas, bilateral adrenal glands and left kidney are normal. 5 mm right renal cyst . There is mild colonic diverticulosis with a sigmoid predominance. Decrease in the wall thickening o f the colon with minimal residual wall thickening and adjacent inflammatory stranding at the sigmoid colon consistent with improving colitis. No abscess or free intraperitoneal gas or fluid. No bowel ob struction. The appendix is not visualized. No pericecal inflammatory change to suggest acute appendic itis. Bladder is normal. The uterus is not identified and has likely been surgically resected. No pat hologically enlarged abdominal or pelvic lymphadenopathy. Severe lumbar spondylosis. IMPRESSION: 1. Significant improvement in prior colonic wall thickening with mild residual wall thickening with m inimal surrounding stranding at the sigmoid colon most likely related to minimal residual colitis alt erin differential would include mild uncomplicated diverticulitis. 2. Small sliding-type hiatal hernia. Reviewed, dictated and finalized at location B. ORK SYSTEMS ANALYST IMPRESSION: 1. Significant improvement in prior colonic wall thickening with mild residual wall thickening with minimal surrounding stranding at the sigmoid colon most li yulisa related to minimal residual colitis although differential would include mi ld uncomplicated diverticulitis. 2. Small sliding-type hiatal hernia.
[2020-11-07 22:53] VITALS: BP 141/85; PULSE 127; RESP 25; TEMP 36; O2SAT 98
--- NOTE | 2020-11-07 23:10 | ED.GENADULT ---
HPI - General Adult General Chief complaint: Abdominal Pain Stated complaint: Ulcerative colitis returned symptoms Time Seen by Provider: 11/07/20 22:49 History of Present Illness HPI narrative: Patient 75-year-old female who presents the emergency department with chief complaint of abdominal pain. The patient reports that she was recently in the hospital for ulcerative colitis was treated with oral steroids and also additional medications for her ulcerative colitis. Patient states that she has been doing well and is noticed that she has heavy bowel movements patient states that this evening she started having pain in the epigastric region and periumbilical region. Patient states she also feels nauseated and this feels similar to whenever she was admitted to the hospital. Patient reports symptoms are not improved by anything nor they worsened by anything. Related Data Home Medications Medication Instructions Recorded Confirmed Turmeric Cbd Oil Hemp Isolate 250 mg PO DAILY 10/13/20 10/13/20 acetaminophen 1,000 mg PO QID PRN 10/13/20 10/13/20 celecoxib 200 mg PO DAILY 10/13/20 10/13/20 duloxetine 60 mg PO DAILY 10/13/20 10/13/20 magnesium oxide 500 mg PO DAILY 10/13/20 10/13/20 metoprolol tartrate 50 mg PO BID 10/13/20 10/13/20 tramadol 50 mg PO QID PRN 10/13/20 10/13/20 trimethoprim 100 mg PO HS 10/13/20 10/13/20 Allergies Allergy/AdvReac Type Severity Reaction Status Date / Time No Known Allergies Allergy Verified 06/07/20 08:26 Review of Systems Review of Systems: Narrative: A 10 system review of systems was completed on the patient and is negative except for what is stated in the HPI. Nursing and ancillary documentation was reviewed. [facility] Past Medical History Medical History Anemia Arthritis Chronic UTI Colitis DDD (degenerative disc disease) Depression Hypertension Leukocytosis Psoriasis Sepsis Sinusitis Suspected 2019-nCoV infection Surgical History Surgical History H/O: hysterectomy History of laminectomy History of left knee replacement Family History Family History Mother Leukemia Father Heart attack Sibling Heart abnormality Social History Social History Smoking status: Never smoker Alcohol intake: never Substance use: never Spiritual care concerns: No Exam Narrative: Exam Narrative: GENERAL: Well-appearing, well-nourished, and in no acute distress. HEAD: Normocephalic, atraumatic. EYES: PERRLA and EOMI. ENT: Nares clear, no rhinorrhea or epistaxis. Mucous membranes moist. NECK: Supple. CHEST: Clear to auscultation. No respiratory distress. HEART: Regular rate and rhythm. No murmur heard. Normal peripheral pulses. ABDOMEN: Soft, epigastric and periumbilical tenderness, nondistended, normal active bowel sounds. EXTREMITIES: Normal range of motion. No edema. SKIN: Warm, dry, no rash. NEURO: No focal deficits. Alert and oriented x3. PSYCH: Normal mood and affect. Course Vital Signs Vital signs: Vital Signs Temperature 36.0 C L 11/07/20 22:53 Pulse Rate 127 H 11/07/20 22:53 Respiratory Rate 25 H 11/07/20 22:53 Blood Pressure 141/85 H 11/07/20 22:53 Pulse Oximetry 98 11/07/20 22:53 Temperature 36.0 C L 11/07/20 22:53 Pulse Rate 127 H 11/07/20 22:53 Respiratory Rate 25 H 11/07/20 22:53 Blood Pressure 141/85 H 11/07/20 22:53 Pulse Oximetry 98 11/08/20 01:30 Medical Decision Making Vital Signs Vital Signs: Vital Signs Temperature 36.0 C L 11/07/20 22:53 Pulse Rate 127 H 11/07/20 22:53 Respiratory Rate 25 H 11/07/20 22:53 Blood Pressure 141/85 H 11/07/20 22:53 Pulse Oximetry 98 11/07/20 22:53 Temperature 36.0 C L 11/07/20 22:53 Pulse Rate 127 H 11/07/20 22:53
[2020-11-07 23:15] VITALS: BP 148/90
[2020-11-07 23:17] VITALS: O2SAT 97
[2020-11-07] MEDS: ONDANSETRON INJ 4 MG/2 ML VIAL IV PUSH (23:20)
[2020-11-07] MEDS: MORPHINE SULFATE (*CRX) 4 MG/ML INJ IV PUSH (23:20)
[2020-11-07] MEDS: SODIUM CHLORIDE 0.9% IV 1,000 ML 999 ML IV CONT (23:20)
[2020-11-07 23:27] LABS: Basophils Absolute Auto 0.1 K/mm3 (0.0-0.1); Basophils Percent Auto 0.4 % (0.2-1.2); Eosinophils Absolute Auto 0.2 K/mm3 (0-0.3); Hematocrit 39.5 % (37.0-47.0); Hemoglobin 12.5 g/dL (12.0-15.0); Immature Granulocyte Absolute 0.13 K/mm3 (0.00-0.031); Immature Granulocyte Percent A 0.6 % (0-0.5); Lymphocytes Absolute Auto 1.33 K/mm3 (0.9-3.2); Lymphocytes Percent Auto 6.2 % (18.3-44.2); Mean Corpuscular HGB Conc 31.6 g/dl (32-36); Mean Corpuscular Hemoglobin 27.9 pg (26-34); Mean Corpuscular Volume 88.2 fl (80-100); Mean Platelet Volume 8.7 fl (7.4-10.4); Monocytes Absolute Auto 1.5 K/mm3 (0.1-0.6); Neutrophils Absolute Auto 18.2 K/mm3 (1.3-6.7); Neutrophils Percent Auto 84.8 % (45.5-73.1); Platelet Count Result 381 k/mm3 (150-375); Red Blood Count 4.48 M/mm3 (4.2-5.4); Red Cell Distribution Width 19.1 % (11.5-14.5); White Blood Count 21.5 K/mm3 (4.5-10.0)
[2020-11-07 23:30] VITALS: O2SAT 91
[2020-11-07 23:37] LABS: Lactic Acid Reflex 2.8 mmol/L (0.7-2.1)
[2020-11-07 23:41] LABS: Alanine Aminotransferase 20 U/L (4-35); Alkaline Phosphatase 81 U/L (38-126); Anion Gap 3 mmol/L (8-16); Aspartate Amino Transferase 22 U/L (14-36); Bilirubin,Total 0.6 mg/dL (0.2-1.3); Blood Urea Nitrogen 30 mg/dL (7-17); Calcium 9.5 mg/dL (8.4-10.2); Carbon Dioxide 34 mmol/L (22-30); Chloride 99 mmol/L (98-107); Estimated CRCL calculation 49 ml/min; Estimated Glomerular Filt Rate > 60; Glucose 103 mg/dL (65-105); Lipase 60 U/L (23-300); Potassium 3.7 mmol/L (3.4-5.0); Sodium 136 mmol/L (137-145)
[2020-11-07 23:45] VITALS: BP 152/80; O2SAT 94
--- NOTE | 2020-11-07 23:45 | PC.NURSE ---
patient to CT.
[2020-11-08] VITALS (18 sets, daily range): BP systolic 115–160; BP diastolic 55–88; PULSE 82–97; RESP 18–20; TEMP 36.4–36.9; O2SAT 95–100; BMI 32.3
--- NOTE | 2020-11-08 00:05 | PC.NURSE ---
BSC to room. patient assisted to use by gyroscopic engineering technician for urine specimen.
--- NOTE | 2020-11-08 00:06 | PC.NURSE ---
patient back from CT. feels better after meds. waiting for CT results. call light in reach. denies needs.
[2020-11-08 01:01] LABS: Add Urine Microscopic? YES; Appearance Urine Clear (Clear); Bacteria Urine Trace /hpf; Bilirubin Urine Negative (Negative); Blood Urine 1+ (Negative); Color Urine Yellow (Yellow); Glucose Urine UA Negative (Negative); Ketones Urine Negative (Negative); Leukocyte Esterase Ur Negative LEU/UL (Negative); Mucus Urine Heavy /lpf; Nitrate Urine Negative (Negative); Protein Urine Negative (Negative); Squamous Epithelial Cell Urine Many /hpf (Few); Urobilinogen Urine Negative mg/dL (<2.0); WBC Urine 0-3 /hpf
[2020-11-08 01:12] LABS: Specific Grav Ur 1.049 (1.001-1.035)
--- NOTE | 2020-11-08 01:43 | PC.NURSE ---
resting on stretcher. waiting for CT results.
[2020-11-08 02:24] LABS: Reflex Lactic Acid Yes or No Add Lactic
[2020-11-08] MEDS: methylPREDNISolone SOD SUCC 125 MG VIAL IV PUSH (02:28)
[2020-11-08] MEDS: metroNIDAZOLE 500 MG/ISO 100ML 500 MG/100 ML BAG 100 MG IVPB ×2 (02:28→08:46)
--- NOTE | 2020-11-08 02:33 | PC.NURSE ---
patient medicated as ordered. aware of plan for admission. call light in reach. denies needs. bed repositioned. ran home to get her belongings.
--- NOTE | 2020-11-08 02:34 | PC.NURSE ---
SBAR completed and faxed to 3rd floor.
[2020-11-08 03:00] LABS: Lactic Acid 2.1 mmol/L (0.7-2.1)
--- NOTE | 2020-11-08 04:28 | PC.NURSE ---
0300 PT RECEIVED ALERTA ND ORIENTED X3. NO PAIN OR NAUSEA AT THIS TIME.
[2020-11-08] MEDS: SODIUM CHLORIDE 0.9% IV 1,000 ML 125 ML IV CONT (05:00)
[2020-11-08] MEDS: ENOXAPARIN 40 MG/0.4 ML SYRINGE SUB-Q (08:43)
[2020-11-08] MEDS: DULoxetine HCL 60 MG CAPSULE.DR PO (08:44)
[2020-11-08] MEDS: methylPREDNISolone SOD SUCC 125 MG VIAL 60 MG IV PUSH (08:45)
[2020-11-08] MEDS: METOPROLOL TARTRATE 50 MG TAB PO ×2 (08:46→21:10)
[2020-11-08 09:52] LABS: Basophils Percent Auto 0.2 % (0.2-1.2); Eosinophils Percent Auto 0.2 % (0-4.4); Hematocrit 37.6 % (37.0-47.0); Hemoglobin 11.5 g/dL (12.0-15.0); Immature Granulocyte Absolute 0.07 K/mm3 (0.00-0.031); Immature Granulocyte Percent A 0.6 % (0-0.5); Lymphocytes Absolute Auto 0.47 K/mm3 (0.9-3.2); Lymphocytes Percent Auto 3.8 % (18.3-44.2); Mean Corpuscular HGB Conc 30.6 g/dl (32-36); Mean Corpuscular Hemoglobin 27.6 pg (26-34); Mean Corpuscular Volume 90.4 fl (80-100); Monocytes Absolute Auto 0.1 K/mm3 (0.1-0.6); Monocytes Percent Auto 0.6 % (2.6-8.5); Neutrophils Absolute Auto 11.7 K/mm3 (1.3-6.7); Neutrophils Percent Auto 94.6 % (45.5-73.1); Platelet Count Result 357 k/mm3 (150-375); Red Blood Count 4.16 M/mm3 (4.2-5.4); Red Cell Distribution Width 18.8 % (11.5-14.5); White Blood Count 12.4 K/mm3 (4.5-10.0)
[2020-11-08 10:10] LABS: Alanine Aminotransferase 17 U/L (4-35); Albumin Level 3.8 g/dL (3.5-5.1); Alkaline Phosphatase 70 U/L (38-126); Anion Gap 5 mmol/L (8-16); Aspartate Amino Transferase 17 U/L (14-36); Bilirubin,Total 0.8 mg/dL (0.2-1.3); Blood Urea Nitrogen 22 mg/dL (7-17); Carbon Dioxide 31 mmol/L (22-30); Chloride 100 mmol/L (98-107); Estimated CRCL calculation 65 ml/min; Estimated Glomerular Filt Rate > 60; Glucose 124 mg/dL (65-105); Magnesium 2.1 mg/dL (1.6-2.3); Potassium 4.7 mmol/L (3.4-5.0); Sodium 136 mmol/L (137-145)
--- NOTE | 2020-11-08 10:43 | PM.IMHP ---
H&P: HPI History of Present Illness Date/Time: 11/08/20 10:43 Chief Complaint: Nausea and vomiting Narrative: Daphne Garrison is a 75 year old female with history of recent diagnosis of colitis, recurrent UTIs, depression, recent sinusitis (treated with cipro per patient), and hypertension who presented to the ED from home on 11/07 with complaints of nausea/vomiting. She was recently admitted/discharged from this hospital and seen by myself for treatment of UC flare earlier this month. Patient states she was in her usual state of health, when she had a sudden onset of nausea and vomiting at 7:00 pm last night after eating a meal. She states she continued to have episodes of n/v until about 8:30 pm last night after she came to the ED and received treatment. She denies any obvious abdominal pain associated with episodes, but possibly mild cramping. She notes it started as projectile vomiting and tapered to bile and then dry heaves. She denies any hematemesis or coffee ground emesis. Today she feels like her normal self and is anxious to eat. She notes she has had an increase in her volume in her stools as of recently, but stools are formed and dark in color (she is on iron supplementation). She notices that she has roughly three BMs per day after every meal as of recently. No recent travel, no changes in diet (she tries to stick to low fiber diet but not always compliant), nor any sick contacts at home. She has been compliant with her medications. No other complaints at the moment. Denies f/c/s,dizziness, lightheadedness, cp/palpitations, sob/cough, current n/v/d/c, abd pain, dysuria, hematuria, cloudy urine, calf pain/swelling. While in the ED, CT abd/pelvis showed significant improvement in prior colonic wall thickening with mild residual wall thickening with minimal surrounding stranding at the sigmoid colon most likely related to minimal residual colitis although differential would include mild uncomplicated diverticulitis. WBC elevated at 21.5k. Lactic acid at 2.8, but normalized with IV fluids. Tachycardic on arrival, but resolved. VS otherwise stable. Afebrile. She was started on IV levaquin and flagyl and IV Solumedrol for treatment of UC flare and admitted under this setting, although symptoms seem to be related to upper GI tract with evidence of improving colitis on CT imaging. Review of Systems Review of Systems: All systems reviewed & are unremarkable except as noted in HPI and below PMFSH Past Medical History Medical History Anemia Arthritis Chronic UTI Colitis DDD (degenerative disc disease) Depression Hypertension Leukocytosis Psoriasis Sepsis Sinusitis Suspected 2019-nCoV infection Surgical History Surgical History H/O: hysterectomy History of laminectomy History of left knee replacement Family History Family History Mother Leukemia Father Heart attack Sibling Heart abnormality Social History Social History Smoking packs per day: 1 Smoking cigarettes per day: 20.0 Years smoked: 30 Smoking pack-years: 30.00 Smoking status: Former smoker Alcohol intake: never Substance use: never Spiritual care concerns: No Meds Home Medications and Allergies Home Medications Medication Instructions Recorded Confirmed Type Turmeric Cbd Oil Hemp Isolate 250 mg PO DAILY 10/13/20 11/08/20 History celecoxib 200 mg PO DAILY 10/13/20 11/08/20 History duloxetine 60 mg PO DAILY 10/13/20 11/08/20 History magnesium oxide 500 mg PO DAILY 10/13/20 11/08/20 History metoprolol tartrate 50 mg PO BID 10/13/20 11/08/20 History tramadol 50 mg PO QID PRN 10/13/20 11/08/20 History trimethoprim 100 mg PO HS 10/13/20 11/08/20 History mesalamine [Delzicol] 800 mg PO TID 30 Days #180 ea 10/20/20
[2020-11-08] MEDS: MESALAMINE 400 MG DELAYED RELEASE CAPSULE 800 MG PO ×2 (13:25→17:21)
[2020-11-08] MEDS: metroNIDAZOLE 250 MG TABLET 500 MG PO ×2 (13:26→21:10)
--- NOTE | 2020-11-08 14:10 | PCNSR ---
On 11/08/20, the student, Orin Ahmadi, provided care and completed [facility] hospital documentation on this patient. I have reviewed the student's documentation and agree with the findings.
--- NOTE | 2020-11-08 16:58 | WPDGICN ---
Assessment and Plan Assessment and plan (1) Nausea & vomiting: Code(s): R11.2 - Nausea with vomiting, unspecified Status: Acute Assessment and Plan: improved, could have been gastroenteritis, etc now she is feeling better ok to advance diet (2) Colitis: Code(s): K52.9 - Noninfective gastroenteritis and colitis, unspecified Status: Acute Assessment and Plan: CT scan looks better, resume her slow taper prednisone and mesalamine she can see me in office in 2 weeks (she was coming this coming Thursday) oral flagyl for 3-4 days (received iv antibiotics in ER) probably can go home tomorrow probably will need to repeat another colonoscopy in 6 months or so to reassess colon (3) Leukocytosis: Qualifiers: Leukocytosis type: unspecified Qualified Code(s): D72.829 - Elevated white blood cell count, unspecified Code(s): D72.829 - Elevated white blood cell count, unspecified Status: Acute Assessment and Plan: also can be due to steroid use continue to monitor (4) Hypertension: Code(s): I10 - Essential (primary) hypertension Status: Acute GI Consult Note Consult date/time: 11/08/20 16:58 HPI: Daphne Garrison is a 75 year old female with history of depression, hypertension and recurrent colitis (first episode 05/2020 then similar episode on 08/2020 both times treated empirically with oral antibiotics with some improvement of symptoms) who I met during a recent hospitalization, finally I performed colonoscopy that showed pancolitis confirmed by bx (sigmoid to ascending colon), also diverticulosis, she went home with mesalamine and steroid taper. She returned to hospital because new onset of nausea and vomiting, no much of abdominal pain and no diarrhea but large stools. She wanted to make sure that colitis was not acting up . Blood work showed WBC 21.5k. Lactic acid at 2.8, but normalized with IV fluids, also tachycardic on arrival but now normal. CT scan a/p showed significant improvement in prior colonic wall thickening with mild residual wall thickening with minimal surrounding stranding at the sigmoid colon most likely related to minimal residual colitis although differential would include mild uncomplicated diverticulitis, small sliding-type hiatal hernia. Review of Systems Constitutional: Constitutional: Denies headache(s) and Denies weakness Eyes: Eyes: Denies blurry vision ENT: Reports Normal hearing present, Denies headache(s) and Denies neck pain Cardiovascular: Cardiovascular: Denies chest pain and Denies dyspnea Respiratory: Respiratory: Denies dyspnea Gastrointestinal: Gastrointestinal: Reports no additional gastrointestinal complaints Genitourinary: Genitourinary: Denies dysuria Musculoskeletal: Musculoskeletal: Denies neck pain Integumentary/Breasts: Skin/Breast: Denies dry skin Neurologic: Reports Normal hearing present, Denies headache(s) and Denies weakness Psychiatric: Psychiatric: Denies anxiety Endocrine: Endocrine: Denies change in body appearance Hematologic/Lymphatic: Hematologic/Lymphatic: Denies easy bleeding Allergic/Immunologic: Allergic/Immunologic: Denies urticaria PMFSH Past Medical History Medical History Anemia Arthritis Chronic UTI Colitis DDD (degenerative disc disease) Depression Hypertension Leukocytosis Psoriasis Sepsis Sinusitis Suspected 2018-nCoV infection Surgical History Surgical History H/O: hysterectomy History of laminectomy History of left knee replacement Family History Family History Mother Leukemia Father Heart attack Sibling Heart abnormality Social History Social History Smoking packs per day: 1 Smoking cigarettes per day: 20.0 Years smoked: 30 Sm
[2020-11-08] MEDS: MELATONIN 5 MG TABLET PO (22:22)
[2020-11-09 06:00] VITALS: BP 127/53; PULSE 71; RESP 20; TEMP 36.6; O2SAT 100
[2020-11-09] MEDS: metroNIDAZOLE 250 MG TABLET 500 MG PO ×2 (06:01→13:01)
[2020-11-09 06:12] LABS: Basophils Percent Auto 0.1 % (0.2-1.2); Hematocrit 31.8 % (37.0-47.0); Hemoglobin 9.8 g/dL (12.0-15.0); Immature Granulocyte Absolute 0.12 K/mm3 (0.00-0.031); Immature Granulocyte Percent A 0.9 % (0-0.5); Lymphocytes Absolute Auto 0.85 K/mm3 (0.9-3.2); Lymphocytes Percent Auto 6.7 % (18.3-44.2); Mean Corpuscular HGB Conc 30.8 g/dl (32-36); Mean Corpuscular Hemoglobin 27.1 pg (26-34); Mean Corpuscular Volume 88.1 fl (80-100); Mean Platelet Volume 8.8 fl (7.4-10.4); Monocytes Absolute Auto 0.8 K/mm3 (0.1-0.6); Monocytes Percent Auto 6.1 % (2.6-8.5); Neutrophils Absolute Auto 10.9 K/mm3 (1.3-6.7); Neutrophils Percent Auto 86.2 % (45.5-73.1); Platelet Count Result 300 k/mm3 (150-375); Red Blood Count 3.61 M/mm3 (4.2-5.4); Red Cell Distribution Width 18.2 % (11.5-14.5); White Blood Count 12.7 K/mm3 (4.5-10.0)
[2020-11-09 06:22] LABS: Alanine Aminotransferase 15 U/L (4-35); Alkaline Phosphatase 59 U/L (38-126); Anion Gap 4 mmol/L (8-16); Aspartate Amino Transferase 16 U/L (14-36); Bilirubin,Total 0.4 mg/dL (0.2-1.3); Blood Urea Nitrogen 19 mg/dL (7-17); Calcium 8.8 mg/dL (8.4-10.2); Carbon Dioxide 30 mmol/L (22-30); Chloride 102 mmol/L (98-107); Estimated CRCL calculation 65 ml/min; Estimated Glomerular Filt Rate > 60; Glucose 179 mg/dL (65-105); Potassium 3.9 mmol/L (3.4-5.0); Sodium 136 mmol/L (137-145)
[2020-11-09 07:07] LABS: Iron 62 ug/dL (37-170)
[2020-11-09 07:16] LABS: Percent Iron Saturation 28 % (20-50)
--- NOTE | 2020-11-09 08:32 | WPDGIPROGNO ---
Progress Note: A&P Assessment and Plan (1) Colitis: Code(s): K52.9 - Noninfective gastroenteritis and colitis, unspecified Status: Acute Assessment and Plan: better, recently diagnosed with UC CT scan improved since last visit continue with prednisone taper, mesalamine and 3 days of flagyl she can follow up in office in 2 weeks and can go home today (2) Nausea & vomiting: Code(s): R11.2 - Nausea with vomiting, unspecified Status: Acute Assessment and Plan: resolved, back to baseline. Subjective Date/time seen: 11/09/20 08:32 Interval history: she is doing well, no diarrhea or pain, good appetite, feeling like going home Review of Systems Review of Systems: All systems reviewed & are unremarkable except as noted in HPI and below Exam Const: General: comfortable and no acute distress HENMT: General nose exam: Normal nares present Eyes: General: appearance normal, both eyes and all related structures Neck: Neck: no JVD Resp: Auscultation: clear to auscultation bilaterally Cardio: Rate: regular rate Rhythm: regular rhythm GI: Inspection: non-distended GI Palp: Yes Soft to palpation Skin: General skin exam: normal color Neuro: General: gait normal Speech: normal speech Extrem: General: normal to inspection Psych: Mental Status: mental status grossly normal Objective Data Vital Signs Vital Signs: Vital Signs - 24 hr 11/08/20 08:46 11/08/20 10:57 11/08/20 14:00 Temperature 97.7 F Pulse Rate 97 88 Respiratory Rate 18 Blood Pressure 130/55 L Pulse Oximetry 97 100 11/08/20 21:10 11/08/20 22:00 11/09/20 06:00 Temperature 98.5 F 98 F Pulse Rate 94 82 71 Respiratory Rate 20 20 Blood Pressure 133/66 127/53 L Pulse Oximetry 98 100 Intake/Output Intake/Output: Intake & Output 11/06/20 11/07/20 11/08/20 11/09/20 23:59 23:59 23:59 23:59 Intake Total 3750 600 Output Total 1230 1100 Balance 2520 -500 Meds/Results Medications: Active Medications Generic Name Dose Route Start Last Admin Trade Name Freq PRN Reason Stop Dose Admin Duloxetine HCl 60 mg 11/08/20 09:00 11/08/20 08:44 Duloxetine Hcl 60 Mg Capsule.Dr PO 60 mg DAILY [facility] Administration Enoxaparin Sodium 40 mg 11/08/20 09:00 11/08/20 08:43 Enoxaparin 40 Mg/0.4 Ml Syringe SUB-Q 40 mg DAILY JAYESH Administration Melatonin 5 mg 11/09/20 21:00 11/08/20 22:22 Melatonin 5 Mg Tablet PO 5 mg HS JAYESH Administration Mesalamine 800 mg 11/08/20 13:00 11/08/20 17:21 Mesalamine 400 Mg Delayed Release Capsule PO 800 mg TID [facility] Administration Metoprolol Tartrate 50 mg 11/08/20 09:00 11/08/20 21:10 Metoprolol Tartrate 50 Mg Tab PO 50 mg Q12HR [facility] Administration Metronidazole 500 mg 11/08/20 14:00 11/09/20 06:01 Metronidazole 250 Mg Tablet PO 500 mg Q8HR [facility] Administration Ondansetron HCl 4 mg 11/08/20 02:07 Ondansetron Inj 4 Mg/2 Ml Vial IV PUSH Q4H PRN Nausea Prednisone 20 mg 11/09/20 09:00 Prednisone 20 Mg Tablet PO DAILY [facility] Radiology Results: ITS Impressions Abdomen/Pelvis CT 11/08/20 08:39 IMPRESSION: 1. Significant improvement in prior colonic wall thickening with mild residual wall thickening with minimal surrounding stranding at the sigmoid colon most likely related to minimal residual colitis although differential would include mild uncomplicated diverticulitis. 2. Small sliding-type hiatal hernia. Labs Labs: Laboratory Results - last 24 hr 11/08/20 11/08/20 11/09/20 07:35 07:35 05:40 WBC 12.4 H 12.7 H RBC 4.16 L 3.61 L Hgb 11.5 L 9.8 L Hct 37.6 31.8 L MCV 90.4 88.1 MCH 27.6 27.1 MCHC 30.6 L 30.8 L RDW 18.8 H 18.2 H Plt Count 357 300 MPV 9.0 8.8 Immature Gran % (Auto) 0.6 H 0.9 H Neut % (Auto) 94.6 H 86.2 H Lymph % (Auto) 3.8 L 6.7 L [place] % (Auto) 0.6 L 6.1 Eos % (Auto) 0.2 0.0 Baso % (Auto) 0.2 0.1
[2020-11-09] MEDS: ENOXAPARIN 40 MG/0.4 ML SYRINGE SUB-Q (10:01)
[2020-11-09] MEDS: DULoxetine HCL 60 MG CAPSULE.DR PO (10:01)
[2020-11-09] MEDS: MESALAMINE 400 MG DELAYED RELEASE CAPSULE 800 MG PO ×2 (10:01→13:01)
[2020-11-09 10:02] VITALS: PULSE 78
[2020-11-09] MEDS: METOPROLOL TARTRATE 50 MG TAB PO (10:02)
[2020-11-09] MEDS: predniSONE 20 MG TABLET PO (10:02)
--- NOTE | 2020-11-09 10:57 | PM.DS ---
DS: Admitting Diagnosis Admitting Diagnosis Admitting Diagnosis: Nausea/vomiting, resolving colitis DS: Discharge Diagnosis Discharge Diagnosis (1) Nausea & vomiting: Code(s): R11.2 - Nausea with vomiting, unspecified Status: Acute Assessment and Plan: Patient's symptoms appear to have resolved and is willing to advance her diet. Dr. Crockett (GI) consulted from ED and appreciate input. It appears patient was admitted for concerns of UC flare, however, it appears her colitis has significantly improved on CT imaging and her symptoms are unrelated to her UC as she denies any significant abdominal pain at this time or last night associated with her n/v. Okay for discharge from GI standpoint Will continue with low fat diet F/u with GI (2) Colitis: Code(s): K52.9 - Noninfective gastroenteritis and colitis, unspecified Status: Acute Assessment and Plan: Patient is compliant with her treatment of her recent UC flare with her prednisone and mesalamine. She finished her course of Abx as an outpatient. She notes increase in stool volume, but having somewhat solid stools Notices increase in frequency over the past week or so. She denies any severe abdominal pain or profuse diarrhea. She has had no BMs since yesterday. Discussed with Dr. Adams who was in agreement with switching back to PO mesalamine and steroids and recommended continuing Flagyl through 11/12 Will do PO flagyl through 11/12 per GI rec (5 days total antibiotics) Continue long taper she was already prescribed Continue mesalamine Low fiber diet F/u with GI (3) Leukocytosis: Qualifiers: Leukocytosis type: unspecified Qualified Code(s): D72.829 - Elevated white blood cell count, unspecified Code(s): D72.829 - Elevated white blood cell count, unspecified Status: Acute Assessment and Plan: Likely reactive from n/v and due to steroid use. It appears colitis flare has improved since last admission F/u with PCP (4) Hypertension: Code(s): I10 - Essential (primary) hypertension Status: Acute Assessment and Plan: BP most recently 120s sys Continue home antihypertensives (5) Anemia: Code(s): D64.9 - Anemia, unspecified Status: Acute Assessment and Plan: Hgb 12.5 on arrival, but likely due to hemoconcentration from hypovolemia from n/v. 9.8 today. Iron studies last stay suggestive of ACD/AI with possible mixed iron deficiency thus was placed on iron supplementation after discharge. Iron studies this stay shows improvement in iron values. She takes this three times daily, possibly contributing to her presenting symptoms Will discharge on iron supplementation to take once daily F/u with PCP DS: Summary Hospital Course Reason for hospitalization: N/V, resolving colitis Hospital Course: Date of arrival: 11/07/20 Date of discharge: 11/09/20 From H&P: Daphne Garrison is a 75 year old female with history of recent diagnosis of colitis, recurrent UTIs, depression, recent sinusitis (treated with cipro per patient), and hypertension who presented to the ED from home on 11/07 with complaints of nausea/vomiting. She was recently admitted/discharged from this hospital and seen by myself for treatment of UC flare earlier this month. Patient states she was in her usual state of health, when she had a sudden onset of nausea and vomiting at 7:00 pm last night after eating a meal. She states she continued to have episodes of n/v until about 8:30 pm last night after she came to the ED and received treatment. She denies any obvious abdominal pain associated with episodes, but possibly mild cramping. She notes it started as projectile vomiting and tapered to bile and then dry heaves. She denies any he
== END 2020-11-09 14:00 | disposition home or self-care (01) | DRG 392 ==
LOC: ANHED 11-08 02:11 → ANH3MEDSUR 11-08 06:46
PROVIDERS: Admitting Provider Internal Medicine; Emergency Provider Emergency Medicine; PCP Family Medicine Adolescent Medicine; Visit Provider Physician Assistant
DX: R11.2 Nausea with vomiting, unspecified (principal); K52.9 Noninfective gastroenteritis and colitis, unspecified; D72.829 Elevated white blood cell count, unspecified; D64.9 Anemia, unspecified; I10 Essential (primary) hypertension; Z79.52 Long term (current) use of systemic steroids; Z79.899 Other long term (current) drug therapy; Z87.891 Personal history of nicotine dependence
CPT/HCPCS: 36415; 74177; 80053; 81001; 82728; 83540; 83550; 83605; 83690; 83735; 85025; 96361; 96374; 96375; 99285; A9270; J1650; J1956; J2270; J2405; J2930; J7030; J7512; Q9967

== ENCOUNTER 2021-02-20 11:00 | Outpatient (RCR) | payer MEDICARE, OTHER, SELFPAY ==
--- NOTE | 2021-01-23 15:36 | PTOPEVAL ---
PHYSICAL THERAPY EVALUATION Thank you for referring Daphne Garrison to [facility].? Daphne was evaluated for the dx of right shoulder pain/impingement. The patient is scheduled to be seen for therapy?2 x/week for 5 weeks. Please review, sign, date and return this plan of care KATHIA. I agree with and certify that the following plan of care is medically necessary. Referring Physician Date Attending Provider: Elliot Lambert MD *PT Outpatient Evaluation Start: 01/23/21 14:27 Freq: Status: Active Protocol: Document 01/23/21 14:28 MLV (Rec: 01/23/21 15:13 MLV [id number]) Therapy Assessment Status Assessment Status Evaluation Evaluation Information Problem Diagnosis type 2 acromion, mild OA Onset December 2020 Cause none Additional Evaluation Detail Pt reports having shoulder pain on the right while doing water aerobics/arm exercises in the pool. The pain is at the right upper arm and is intermittent. The pt continues pool therapy 2x a week and doing silver sneakers 2-3x a week. The pt is retired and does housework/cooking/laundry and is social for outings. Pt has pain with right sidelying so avoids it so to sleep well. Subjective Information Pt is right hand dominant Query Text:As Reported By Patient/ Family Pain Assessment Timing of Pain Assessment Timing of Pain Assessment Assessment Pain Scale Pain Scale Used Numeric (1 - 10) Self Report Pain Assessment Right Arm(s) Reported Pain Level 0 Pain Frequency Acute Greatest Pain Intensity 4 Other Pain Aggravating Factors reaching Pain Behaviors Grimacing,Moaning Pain Score Pain Score 0: Self Report Interventions Used Interventions Used By Clinicians Education Pain Relief Interventions Used By Position Change Patient Upper Extremity Range of Motion General Upper Extremity Range of Motion Reason Not Measured WFL/Left,WFL/Right Gross Upper Extremity Range of Motion shoulder IR reach: left arm to Comments T5 and right arm to L1 with pain; active motion 52 right and 72 left. Movement labored due to pain for IR and elevation Upper Extremity Muscle Strength Testing General Upper Extremity Strength
--- NOTE | 2021-02-20 11:47 | PTOPEVAL ---
PHYSICAL THERAPY DISCHARGE Thank you for referring Daphne Garrison to [facility].? Daphne has progressed well with her therapy for her right shoulder pain and goals met after 10 visits completed. PT is discontinued at this time. Please review, sign, date and return this plan of care KATHIA. I agree with and certify the following plan of care. Referring Physician Date Attending Provider: Elliot Lambert MD *PT Outpatient Discharge Start: 01/23/21 14:27 Freq: Status: Active Protocol: Document 02/20/21 11:09 MLV (Rec: 02/20/21 11:47 MLV [id number]) Therapy Assessment Status Assessment Status Assessment Status Discharge Evaluation Information Problem Diagnosis type 2 acromion, mild OA Onset December 2020 Cause none Additional Evaluation Detail Pt reports her shoulder is about 50% better since her evaluation date. Pt feels the posterior shoulder knot is much better since treatment and denies trouble with her current HEP. The pt is to see the MD in March for a follow up. Patient continues to do her water aerobics and is sleeping better now. Pt feels she can continue her exercises on her own along with use of heat for relief. Pain Assessment Timing of Pain Assessment Timing of Pain Assessment Assessment Pain Scale Pain Scale Used Numeric (1 - 10) Self Report Pain Assessment Right Arm(s) Reported Pain Level 0 Other Pain Description pain is a 2 with reaching-not consistently Pain Score Pain Score 0: Self Report Interventions Used Interventions Used By Clinicians Electrical Stimulation,Heat, Manual Therapy Techniques Pain Relief Interventions Used By Exercise,Heat,Position Change Patient Upper Extremity Range of Motion General Upper Extremity Range of Motion Gross Upper Extremity Range of Motion shoulder IR reach: left arm to Comments T5 and right arm to T6 with pain; active motion 72 right and 72 left. Movement no longer labored due to pain for IR and elevation Upper Extremity Muscle Strength Testing General Upper Extremity Strength Gross Upper Extremity Strength Comments scapular strength: mid traps 4, lower traps 3+ greg.
== END 2021-02-25 10:33 | disposition home or self-care (01) ==
LOC: ANHPT 11:00
PROVIDERS: PCP Family Medicine Adolescent Medicine; Visit Provider Orthopaedic Surgery
DX: M75.81 Other shoulder lesions, right shoulder (principal)
CPT/HCPCS: 97014; 97110; 97140; 97162; G0283

== ENCOUNTER 2021-04-09 09:05 | Outpatient (CLI) | payer MEDICARE, OTHER, SELFPAY ==
--- NOTE | 2021-04-09 10:25 | ECG_ITS ---
Measurements Intervals [place] Rate: 63 P: 46 NH: 194 QRS: -20 QRSD: 85 T: 41 QT: 394 QTc: 405 Interpretive Statements SINUS RHYTHM VOLTAGE CRITERIA FOR LVH MINIMAL Q WAVES- HIGH LATERAL LEADS BASELINE ARTIFACT- I, II, AVR, AVL BORDERLINE ECG Electronically Signed On 04-09-2021 10:43:37 CDT by Barry Peacock D.O.
[2021-04-09 10:58] LABS: Basophils Absolute Auto 0.1 K/mm3 (0.0-0.1); Basophils Percent Auto 0.6 % (0.2-1.2); Eosinophils Absolute Auto 0.3 K/mm3 (0-0.3); Eosinophils Percent Auto 2.7 % (0-4.4); Hematocrit 41.2 % (37.0-47.0); Hemoglobin 12.8 g/dL (12.0-15.0); Immature Granulocyte Absolute 0.04 K/mm3 (0.00-0.031); Immature Granulocyte Percent A 0.4 % (0-0.5); Lymphocytes Absolute Auto 0.88 K/mm3 (0.9-3.2); Lymphocytes Percent Auto 9.4 % (18.3-44.2); Mean Corpuscular HGB Conc 31.1 g/dl (32-36); Mean Corpuscular Hemoglobin 27.3 pg (26-34); Mean Corpuscular Volume 87.8 fl (80-100); Mean Platelet Volume 8.8 fl (7.4-10.4); Monocytes Absolute Auto 0.8 K/mm3 (0.1-0.6); Monocytes Percent Auto 8.2 % (2.6-8.5); Neutrophils Absolute Auto 7.4 K/mm3 (1.3-6.7); Neutrophils Percent Auto 78.7 % (45.5-73.1); Platelet Count Result 318 k/mm3 (150-375); Red Blood Count 4.69 M/mm3 (4.2-5.4); Red Cell Distribution Width 14.1 % (11.5-14.5); White Blood Count 9.4 K/mm3 (4.5-10.0)
[2021-04-09 11:10] LABS: Albumin Level 4.2 g/dL (3.5-5.1); Estimated Glomerular Filt Rate > 60; Glucose 94 mg/dL (65-105)
[2021-04-09 11:13] LABS: Urine Cotinine NEGATIVE
[2021-04-09 11:20] LABS: Hemoglobin A1C 5.4 % (<5.7)
== END 2021-04-09 09:06 | disposition home or self-care (01) ==
LOC: ANHSURGERY 09:10
PROVIDERS: PCP Family Medicine Adolescent Medicine; Visit Provider Orthopaedic Surgery
DX: M17.11 Unilateral primary osteoarthritis, right knee (principal); Z01.818 Encounter for other preprocedural examination; R94.31 Abnormal electrocardiogram [ECG] [EKG]
CPT/HCPCS: 80307; 82040; 82565; 82947; 83036; 85025; 86850; 86900; 86901; 87081; 93005

== ENCOUNTER 2021-04-22 02:33 | Day surgery (SDC) | payer MEDICARE, OTHER, SELFPAY ==
[2021-04-09 09:44] VITALS: BP 109/56; PULSE 72; RESP 16; TEMP 37.1; O2SAT 96; BMI 29.0
[2021-04-22] VITALS (14 sets, daily range): BP systolic 116–151; BP diastolic 51–78; PULSE 57–78; RESP 12–20; TEMP 36–36.9; O2SAT 96–100
--- NOTE | ~2021-04-22 | XR_ITS ---
EXAMINATION: XR knee RT 2V DATE: 04/22/2021 14:24 INDICATION: Right knee arthroplasty. Postop. TECHNIQUE: 2 views of right knee were obtained. COMPARISON: Right knee radiographs 07/14/2019 FINDINGS: There is a total right knee arthroplasty in near-anatomic alignment with patellar resurfaci ng. No fracture. There is gas in the knee joint and soft tissues, consistent with recent surgery. IMPRESSION: 1. Total right knee arthroplasty in near-anatomic alignment. Reviewed, dictated and finalized at location A.
[2021-04-22] MEDS: ACETAMINOPHEN 500 MG TABLET 1000 MG PO ×2 (09:01→16:17)
[2021-04-22] MEDS: LACTATED RINGERS 1,000 ML 30 ML IV CONT ×2 (09:20→14:06)
--- NOTE | 2021-04-22 09:50 | WPDANESEPPF ---
Anes - Initial Pre Proc Eval Procedure: Operation Date: 04/22/21 11:00 Proposed Procedures p Right Total Knee Arthroplasty - Elliot Lambert MD Date/Time: 04/22/21 09:50 Surgeon: Elliot Lambert MD Pre Op Diagnosis: OA right knee Patient Data Age: 75 Gender: F Height: 1.68 m Weight: 82 kg Last Vital Signs Temp 36.9 C 04/22/21 08:56 Pulse 61 04/22/21 08:56 Resp 20 04/22/21 08:56 BP 118/60 04/22/21 08:56 Pulse Ox 96 04/22/21 08:56 Allergies Allergy/AdvReac Type Severity Reaction Status Date / Time No Known Allergies Allergy Verified 04/09/21 09:34 Home Medications Medication Instructions Recorded Confirmed Type celecoxib 200 mg PO QAM 10/13/20 04/22/21 History duloxetine 60 mg PO QAM 10/13/20 04/22/21 History metoprolol tartrate 50 mg PO BID 10/13/20 04/22/21 History multivitamin 1 tablet PO DAILY 01/15/21 04/16/21 History cyanocobalamin (vitamin B-12) 1,000 mcg PO DAILY 04/09/21 04/22/21 History dlrixrgrzaq-aru-bdjdjimfa-vitC 3 cap PO DAILY 04/09/21 04/22/21 History [Glucosamine Complex-MSM] magnesium 15 mg PO HS 04/09/21 04/22/21 History mesalamine [Delzicol] 1,200 mg PO BID 04/09/21 04/22/21 History naproxen sodium 440 mg PO BID PRN 04/09/21 04/16/21 History solifenacin 10 mg PO HS 04/09/21 04/22/21 History ferrous sulfate 325 mg (65 mg 325 mg PO DAILY 04/16/21 04/22/21 History iron) tablet rivaroxaban 10 mg tablet 10 mg PO DAILY #14 tablet 04/16/21 04/22/21 Rx Patient hx anesthesia problems: none Family hx anesthesia problems: none PMFSH Past Medical History Medical History Anemia Arthritis Arthritis of knee, right Chronic UTI Colitis DDD (degenerative disc disease) Depression Hypertension Leukocytosis Psoriasis Sepsis Sinusitis Suspected 2019-nCoV infection Ulcerative colitis Surgical History Surgical History H/O: hysterectomy History of laminectomy History of left knee replacement Family History Family History Mother Leukemia Father Heart attack Depression Sibling Heart abnormality Social History Social History Years smoked: 30 Smoking status: Former smoker Tobacco type: cigarettes Smoking end date: 04/11/09 Alcohol intake: never Substance use: never Living arrangements: with family Additional living arrangements comments: [facility] Gender identity (if verbalized by the patient): Female Spiritual care concerns: No Anes - Eval Final PreProcedure Day of Procedure 04/22/21 09:50 Patient weight: overweight Heart: regular rate and rhythm Lungs: clear to auscultation and normal air movement Airway: Mallampati scale class II Neurological: alert and oriented Last oral intake: >/= 8 hours ASA classification: III Emergent: no Anesthetic plan: proceed Anesthesia type and monitoring: general LMA and standard monitoring Informed Consent: The patient's anesthetic plan and its attendant risks and benefits were discussed with the patient/family/POA. Questions were solicited and answers provided to the satisfaction of the patient/family/POA.
[2021-04-22] MEDS: TRANEXAMIC ACID 1,000MG/ISO100 1,000 MG/100 ML BAG 200 MG IVPB (10:01)
--- NOTE | 2021-04-22 10:53 | WPDHPUPDATE1 ---
History and Physical Update Update Date/Time: 04/22/21 10:53 History and Physical has been reviewed, including an updated exam of the patient. There are NO changes in the patient's condition. Risks, benefits, and alternatives have been discussed and questions answered. Patient agrees to proceed with procedure.
--- NOTE | 2021-04-22 11:12 | SUR.PREOP ---
1040-PT INFORMED PER DR. LUBIN THAT HE DELAYS SELF.
--- NOTE | 2021-04-22 11:13 | WPDANESPNB ---
Anes - Peripheral Nerve Block Date/Time: 04/22/21 11:13 I have discussed with the patient/family/POA the placement of a peripheral nerve block for post-operative pain management, including associated risks, benefits, complications, and side effects. Alternative methods of post-operative analgesia were detailed. Questions were solicited and answers provided to the satisfaction of the patient/family/POA. Time-Out: A pre-procedural Time-Out was completed immediately before starting the procedure and confirmed: Patient Identification, Site, Procedure, Patient Position and the Availability of Requisite Equipment. Clinical Indications: Acute post-operative pain management requested by the operative surgeon. Nerve Block Insertion Note Anes-nerve block: adductor canal right Patient position: supine Skin prep: chlorhexidine Needle: 22 gauge, stimulating, insulated echogenic needle. Needle length: 80 mm Technique: ultrasound Technique comment: in plane Injectate: bupivacaine 0.5% with epi 5 mcg/ml (30cc) Observations: tolerated well Complications: none Procedure start time:: 1120 Procedure end time:: 1124
[2021-04-22] MEDS: ceFAZolin 2 GM/D5W 50 ML 2 GM/50 ML BAG IVPB ×2 (11:38→16:16)
[2021-04-22] MEDS: BUPIVACAINE/EPINEPHRINE 0.25% 10 ML VIAL 60 ML INFILTRATE (12:26)
[2021-04-22] MEDS: GENTAMICIN BONE CEMENT REFOBACIN 1 EACH TOPICAL (13:04)
[2021-04-22] MEDS: ceFAZolin SODIUM 1 GM VIAL IV PUSH (13:35)
--- NOTE | 2021-04-22 14:02 | W.PM.PROC2 ---
Procedure Note - Detailed Date of Procedure 04/22/21 Pre-op Diagnosis OA right knee Post-op Diagnosis same Procedure Performed Right total knee replacement Surgeon Elliot Lambert MD [employer] Rik Anesthesia general Indications see H&P Findings see op note Description of Procedure The patient was identified and proper site identified. In the preop holding area the anesthesia team performed a right sub sartorial block after which the patient was taken to the operating room and transferred to the OR table positioning supine taking care to pad the torso and extremities. After general anesthetic induction and intubation a nonsterile tourniquet was placed high on the right thigh. The right lower extremity was prepped and draped in the usual sterile fashion. The extremity was exsanguinated and with the knee flexed tourniquet was inflated to 300 mmHg remaining up for approximately 60 minutes. An anterior midline incision was made and a modified medial parapatellar approach was used. Infra and suprapatellar fat pads were excised. Patella was resected leaving 15 mm thickness and prepared for the 31 round three peg component. Using the intramedullary guide the distal femur was cut in the proper orientation for the size 65 femoral component. Using the extramedullary guide the tibia was cut perpendicular to the long axis protecting collateral ligaments and popliteal structures. It was sized to a 67. Flexion and extension gaps were balanced. Trial reduction was undertaken and the weight-bearing line was noted to passed through the center of the joint. Proximal tibia was drilled and punched in the proper orientation for the real component. Trial components were removed. The bone surfaces were washed with pulsatile lavage and dried. The real components were cemented simultaneously. The knee was held in extension and the patella held clamped until the cement had cured. Excess cement was removed from the joint. After trialing it was determined that the 10 mm insert gave full range of motion from 0-120 degrees of flexion and the patella tracked in the femoral groove with no lift-off. After final lavage the joint the real 10 insert was placed and secured with a locking bar. A Betadine and saline wash was placed into the wound and allowed to sit for approximately 3 minutes and then evacuated. Periarticular tissues were infiltrated with 60 cc of the arthroplasty solution. 1 g of tranexamic acid was left in the wound. The extensor mechanism was repaired with #2 Vicryl suture and 0 looped PDS suture. Subcu was reapproximated with two 0 strata fix and tissue adhesive for the skin. A sterile dressing was applied. She tolerated the procedure well, was awakened and extubated, transferred to the bed and was taken to recovery area in stable condition. There were no known intraoperative complications. Perioperative antibiotics were administered. Estimated Blood Loss 200 Tourniquet Time 60 Drains No Packing No Pathology none sent Complications No immediate complications Condition stable Disposition PACU
[2021-04-22] MEDS: fentaNYL CITRATE INJ (*CRX) 100 MCG/2 ML VIAL 25 MCG IV PUSH ×3 (14:19→14:28)
[2021-04-22] MEDS: SODIUM CHLORIDE 0.9% IV 1,000 ML 125 ML IV CONT (15:43)
[2021-04-22] MEDS: MESALAMINE 400 MG DELAYED RELEASE CAPSULE 1200 MG PO (16:17)
[2021-04-22] MEDS: DOCUSATE SODIUM 100 MG CAPSULE PO (16:18)
[2021-04-22] MEDS: METOPROLOL TARTRATE 50 MG TAB PO (16:19)
[2021-04-22] MEDS: oxyCODONE HCL (*CRX) 5 MG TAB IR PO ×2 (16:59→21:05)
[2021-04-22] MEDS: KETOROLAC 15 MG/ML VIAL (*BKC) IV PUSH (18:48)
[2021-04-22] MEDS: SOLIFENACIN 5 MG TABLET 10 MG PO (21:05)
[2021-04-22] MEDS: FAMOTIDINE 20 MG TABLET PO (21:05)
[2021-04-23] VITALS: BP 112/48; PULSE 63; RESP 16; TEMP 35.9; O2SAT 97
[2021-04-23] MEDS: ceFAZolin 2 GM/D5W 50 ML 2 GM/50 ML BAG IVPB ×2 (00:25→06:40)
[2021-04-23] MEDS: KETOROLAC 15 MG/ML VIAL (*BKC) IV PUSH ×2 (00:25→06:38)
[2021-04-23] MEDS: ACETAMINOPHEN 500 MG TABLET 1000 MG PO ×2 (00:26→08:17)
[2021-04-23] MEDS: oxyCODONE HCL (*CRX) 5 MG TAB IR PO ×4 (01:22→13:18)
[2021-04-23 04:00] VITALS: BP 115/55; PULSE 54; RESP 16; TEMP 36.5; O2SAT 95
--- NOTE | 2021-04-23 07:04 | PM.DS ---
DS: Admitting Diagnosis Admitting Diagnosis Admitting Diagnosis: osteoarthritis right knee DS: Discharge Diagnosis Discharge Diagnosis (1) History of right knee joint replacement: Code(s): Z96.651 - Presence of right artificial knee joint Status: Chronic Assessment and Plan: Patient being discharged home today. Overnight stay uneventful. DS: Summary Hospital Course Reason for hospitalization: Observation following outpatient procedure Hospital Course: Following the patient's surgery she was admitted to the floor to begin physical therapy. Overnight stay was uneventful. Being discharged home today with planned follow-up in the office in two weeks. Status at Discharge Functional status at discharge: uses cane/walker Overall status at discharge: patient is not back to baseline Time Spent with Patient Time attestation: Total time spent providing and/or coordinating discharge services: Exam Const: General: cooperative, no acute distress and alert Nutritional Appearance: other Orientation/consciousness: patient oriented x3 Limitations: no limitations HENMT: Head: normal to inspection Ears: hearing grossly normal bilaterally Face and sinus: face symmetric Mouth: Yes moist mucous membranes Eyes: Alignment and Position: alignment normal and position normal Sclera: sclerae normal Neck: Neck: normal visual inspection and nontender Chest: Chest palpation & inspection: normal inspection of the chest Resp: Effort & Inspection: normal respiratory effort and able to speak in complete sentences GI: Inspection: other ( Nontender, nondistended) Skin: General skin exam: normal color Rashes: no rashes Neuro: General: patient oriented x3 Cognition (Neuro): normal cognition Speech: normal speech Gait exam (Neuro): Other gait observations present Extrem: General: normal to inspection and other Other: Exam of the right knee shows dry incision. Minimal swelling and no bruising appreciated. Grossly neurovascular status unremarkable to right lower extremity. Psych: Appearance: grossly normal Mental Status: mental status grossly normal Radiology Reports: Comments: EXAMINATION: XR knee RT 2V DATE: 04/22/2021 14:24 INDICATION: Right knee arthroplasty. Postop. TECHNIQUE: 2 views of right knee were obtained. COMPARISON: Right knee radiographs 07/14/2019 FINDINGS: There is a total right knee arthroplasty in near-anatomic alignment with patellar resurfacing. No fracture. There is gas in the knee joint and soft tissues, consistent with recent surgery. IMPRESSION: 1. Total right knee arthroplasty in near-anatomic alignment. DS: Data Imaging Attestation: I personally reviewed and interpreted this imaging study as follows: Discharge Plan Discharge Patient Disposition: Home, Self-Care Discharge Instructions: 3 times daily for 20 minutes each time, reclining in bed with ice packs over the incision and a pillow underneath the calf of the affected leg, not under the knee. Your wound is glued so it is okay to get into the shower and get the wound wet in two days. Be sure to read through all the information that came from a my office and the hospital. Most of the answers you will need can be found that material. Call the office with any questions that you cannot find answers to, or concerns you may have. After the Xarelto is completed, start taking one coated 325 mg aspirin daily and do this for four more weeks. Please call [facility] at as soon as possible to Verify your follow-up appointment to be seen in 2 weeks. Also, call the office with any orthopedic/surgical related questions prior to follow-up. Be sure to get up and move around several times daily but do not overdo it. Take the arthritis formula Tylenol 650 mg tablet on an 8 hour schedule. A good 8 hour schedule is: 6:00 a.m., 2:00 p.m., 10:00 p.m. you may take the prescribed
[2021-04-23] MEDS: MESALAMINE 400 MG DELAYED RELEASE CAPSULE 1200 MG PO (08:17)
[2021-04-23] MEDS: DOCUSATE SODIUM 100 MG CAPSULE PO (08:17)
[2021-04-23] MEDS: DULoxetine HCL 60 MG CAPSULE.DR PO (08:18)
[2021-04-23] MEDS: polyethylene glycoL 3350 17 GM POWD.PACK PO (08:18)
[2021-04-23] MEDS: MULTIVITAMINS THERAPEUTIC TAB (*BKC) 1 TABLET PO (08:18)
[2021-04-23] MEDS: FERROUS SULFATE 324 MG TABLET PO (08:18)
[2021-04-23] MEDS: FAMOTIDINE 20 MG TABLET PO (08:18)
[2021-04-23] MEDS: CYANOCOBALAMIN 1,000 MCG TABLET 1000 MCG PO (08:18)
--- NOTE | 2021-04-23 08:20 | WPDANESPN ---
Anes - Prog Note Post-Op Date/Time: 04/23/21 08:20 Cardiovascular status: normal Respiratory status: normal Airway patency: baseline Mental status: baseline Post-Op hydration status: normal Vital Signs: Last Vital Signs Temp 36.5 C 04/23/21 04:00 Pulse 54 L 04/23/21 04:00 Resp 16 04/23/21 04:00 BP 115/55 L 04/23/21 04:00 Pulse Ox 95 04/23/21 04:00 Pain Score (VAS): 0 I/O: Intake & Output 04/22/21 04/23/21 04/23/21 23:59 07:59 15:59 Intake Total 590 350 Output Total 350 400 Balance 240 -50 Post-procedural complaints: none and pruritis Patient Feedback: Patient satisfied with anesthetic care.
[2021-04-23 09:02] VITALS: PULSE 66
[2021-04-23] MEDS: METOPROLOL TARTRATE 50 MG TAB PO (09:02)
[2021-04-23 09:07] VITALS: BP 96/75; PULSE 67; RESP 16; TEMP 35.8; O2SAT 99
[2021-04-23] MEDS: RIVAROXABAN 10 MG TABLET PO (10:38)
[2021-04-23 12:58] VITALS: BP 98/43; PULSE 63; RESP 20; TEMP 35.7; O2SAT 94
--- NOTE | 2021-04-23 14:06 | PC.NURSE ---
Patient discharged home, all instructions given. Patient understands, taken out by wheelchair, all belongings sent.
== END 2021-04-23 14:06 | disposition home or self-care (01) ==
LOC: ANHSURGERY 08:38 → ANH3MED 15:37
PROVIDERS: PCP Family Medicine Adolescent Medicine; Visit Provider Orthopaedic Surgery
PROC: (CPT 27447; principal; 2021-04-22 11:00)
DX: M17.11 Unilateral primary osteoarthritis, right knee (principal); G89.18 Other acute postprocedural pain; I10 Essential (primary) hypertension; F32.9 Major depressive disorder, single episode, unspecified; D64.9 Anemia, unspecified; L40.9 Psoriasis, unspecified; Z79.01 Long term (current) use of anticoagulants; Z87.891 Personal history of nicotine dependence
CPT/HCPCS: 27447; 64447; 73560; 80307; 82040; 82565; 82947; 83036; 85025; 86850; 86900; 86901; 87081; 93005; 97110; 97161; 97165; 97530; A9270; C1713; C1776; J0131; J0690; J1100; J1885; J2250; J2405; J2704; J3010; J7030; J7120

== ENCOUNTER 2021-06-03 08:30 | Outpatient (RCR) | payer MEDICARE, OTHER, SELFPAY ==
--- NOTE | 2021-04-29 14:36 | PTOPEVAL ---
Thank you for referring Daphne Garrison to [facility].? The patient is scheduled to be seen for therapy? 2 x/week for 10 weeks. Please review, sign, date and return this plan of care KATHIA. I agree with and certify that the following plan of care is medically necessary. Referring Physician Date Attending Provider: Elliot Lambert MD Diagnosis s/p TKR Onset 04/22/21 Additional Evaluation Detail Prior to surgery she used a cane for mobility and she performing raftsman. She has 2 step to enter the house. Subjective Information She requires assistance with Query Text:As Reported By Patient/ donning socks/shoes since Family surgery. She requires assistance with raftsman. She is currently walking with a walker. She requires assistance with bed mobility She is performing HEP LAQ, knee flex, ankle pumps 3-4x/ day. She wants to return to Silver sneakers and aqua aerobics. She is able to perform community mobility until December when the pain increased. Pain Assessment Self Report Pain Assessment Right Knee(s) Reported Pain Level 7 Pain Description Incisional,Sharp Pain Frequency Acute,Continuous Lowest Pain Intensity 5 Greatest Pain Intensity 8 Pain Aggravating Factors ADL's,Bending,Exercise/ Activity,Sitting,Stair Climbing,Walking,Weight Bearing/Standing Lower Extremity Range of Motion General Lower Extremity Range of Motion Gross Lower Extremity Range of Motion left knee range: 0-118 dg Knee Range of Motion Right Knee Flexion Range of Motion - Active 73 Knee Extension Range of Motion - Passive -13 Knee Range of Motion Limitations Edema,Muscle Weakness,Pain, Soft Tissue Restriction Lower Extremity Muscle Strength Testing Hip Strength Right Hip Flexion Strength 3- Fair - Hip Extension Strength 3- Fair - Hip Abduction Strength 2+ Poor + Hip Adduction Strength 2 Poor Knee Strength Right Knee Flexion Strength 3- Fair - Knee Extension Strength 3- Fair - Extremity Circumference Assessment Location Right Body Part Knee Site Descriptor ([place]) mid patella Circumference (cm
--- NOTE | 2021-06-03 09:20 | PTOPEVAL ---
Physical Therapy Discharge summary Thank you for referring Daphne Garrison to [facility].? Daphne has partially achieved her therapy goals at this time with improved knee motion, strength and functional mobility. She demonstrates indep with her HEP at this time. Will plan to [place] skilled therapy services with recommendations she cont with home program. Please review, sign, date and return this DC summary KATHIA. I agree with and certify that the following plan of care is medically necessary. Referring Physician Date Attending Provider: Elliot Lambert MD Problem Diagnosis s/p TKR Onset 04/22/21 Additional Evaluation Detail Prior to surgery she used a cane for mobility and she performing manager pediatric. She has 2 step to enter the house. Subjective Information She is indep with donning Query Text:As Reported By Patient/ socks/shoes since surgery and Family manager pediatric. She is walking without an AD. She has returned to [employer] and aquatic class or walking in water with progression of tolerance. Pain Assessment Right Knee(s) Reported Pain Level 0 Lowest Pain Intensity 0 Greatest Pain Intensity 0 Lower Extremity Range of Motion Knee Range of Motion Right Knee Flexion Range of Motion - Active 115 Knee Extension Range of Motion - Active -8 Knee Extension Range of Motion - Passive -2 Knee Range of Motion Limitations Edema,Soft Tissue Restriction Lower Extremity Muscle Strength Testing Hip Strength Right Hip Flexion Strength 4- Good - Hip Extension Strength 3+ Fair + Hip Abduction Strength 3 Fair Hip Adduction Strength 3+ Fair + Knee Strength Right Knee Flexion Strength 3+ Fair + Knee Extension Strength 4 Good Extremity Circumference Assessment Location Right Body Part Knee Site Descriptor ([place]) mid patella Circumference (cm) 46 Noninvolved Side Circumference (cm) 42 Circumference Comments tibial tuberosity: right: 40.5 cm, left 38 cm Balance Assessment Timed Up and Go Test (TUG) (Seconds) 14 Comments no increased pain 5 Time Sit to Stand Time in Seconds 20 5 Time Sit to Stand Comments use of UE, 75% WB on right LE Gait Assessment Gait Pattern Assessment Gait Pattern Antalgic Gait,Trendelenburg Gait Gait Pattern Observed Decreased Stride Length - Left ,Decreased Stride Length -
== END 2021-06-03 11:48 | disposition home or self-care (01) ==
LOC: ANHPT 08:30
PROVIDERS: PCP Family Medicine Adolescent Medicine; Visit Provider Orthopaedic Surgery
DX: Z47.1 Aftercare following joint replacement surgery (principal); Z96.651 Presence of right artificial knee joint
CPT/HCPCS: 97014; 97110; 97140; 97162; G0283

== ENCOUNTER 2022-03-20 09:40 | Outpatient (CLI) | payer MEDICARE, OTHER, SELFPAY ==
[2022-03-20 10:04] LABS: Hematocrit 39.6 % (37.0-47.0); Hemoglobin 12.1 g/dL (12.0-15.0); Mean Corpuscular HGB Conc 30.6 g/dl (32-36); Mean Corpuscular Hemoglobin 27.6 pg (26-34); Mean Corpuscular Volume 90.4 fl (80-100); Mean Platelet Volume 8.9 fl (7.4-10.4); Platelet Count Result 316 k/mm3 (150-375); Red Blood Count 4.38 M/mm3 (4.2-5.4); Red Cell Distribution Width 14.4 % (11.5-14.5); White Blood Count 8.2 K/mm3 (4.5-10.0)
[2022-03-20 10:30] LABS: Alanine Aminotransferase 18 U/L (6-35); Albumin Level 4.1 g/dL (3.5-5.1); Alkaline Phosphatase 88 U/L (38-126); Anion Gap 4 mmol/L (8-16); Aspartate Amino Transferase 25 U/L (14-36); Bilirubin,Total 0.4 mg/dL (0.2-1.3); Blood Urea Nitrogen 26 mg/dL (7-17); CRP 1.2 mg/dL (<1.0); Calcium 8.9 mg/dL (8.4-10.2); Carbon Dioxide 28 mmol/L (22-30); Chloride 105 mmol/L (98-107); Estimated Glomerular Filt Rate 44; Glucose 108 mg/dL (65-110); Potassium 4.9 mmol/L (3.4-5.0); Sodium 137 mmol/L (137-145)
[2022-03-20 12:10] LABS: Hepatitis B Surface Anti Res Negative
[2022-03-20 12:42] LABS: Erythrocyte Sedimentation Rate 23 mm/hr (0-20)
[2022-03-22 11:10] LABS: Hepatitis A Antibody Total Nonreactive (Nonreactive)
== END 2022-03-20 09:41 | disposition home or self-care (01) ==
LOC: ANHLAB 09:42
PROVIDERS: PCP Family Medicine Adolescent Medicine; Visit Provider Nurse Practitioner
DX: K51.90 Ulcerative colitis, unspecified, without complications (principal); R10.31 Right lower quadrant pain; R10.32 Left lower quadrant pain
CPT/HCPCS: 36415; 80053; 85027; 85652; 86140; 86706; 86708

== ENCOUNTER 2022-03-21 08:36 | Outpatient (CLI) | payer MEDICARE, OTHER, SELFPAY ==
[2022-03-28 00:29] LABS: Calprotectin, Stool 2080 mcg/g
== END 2022-03-21 08:37 | disposition home or self-care (01) ==
PROVIDERS: PCP Family Medicine Adolescent Medicine; Visit Provider Nurse Practitioner
DX: R10.31 Right lower quadrant pain (principal); R10.32 Left lower quadrant pain; K51.90 Ulcerative colitis, unspecified, without complications
CPT/HCPCS: 83993

== ENCOUNTER 2022-05-12 06:02 | Emergency (ER) | payer MEDICARE, OTHER, SELFPAY ==
[2022-05-12 06:04] VITALS: BP 118/91; PULSE 76; RESP 20; TEMP 37.1; O2SAT 97
--- NOTE | 2022-05-12 07:24 | ED.URI ---
HPI - URI/Sore Throat General Chief Complaint: Upper Respiratory Infection Stated Complaint: COVID +, sore throat Time Seen by Provider: 05/12/22 06:58 History of Present Illness HPI Narrative: started with sore throat on thursday no other symptoms got vaccinated tested postive for covid today home test no trobule breathing cp or swallowing no meds taken Related Data Home Medications Medication Instructions Recorded Confirmed multivitamin 1 tablet PO DAILY 01/15/21 05/05/22 cyanocobalamin (vitamin B-12) 500 1,000 mcg PO DAILY 04/09/21 05/05/22 mcg tablet magnesium 500 mg tablet 500 mg PO HS 04/09/21 05/05/22 ferrous sulfate 325 mg (65 mg 325 mg PO .COMPLEX 10/23/21 05/05/22 iron) tablet (Feosol) trimethoprim 100 mg tablet 100 mg PO DAILY 03/20/22 05/05/22 dicyclomine 10 mg capsule 10 mg PO .Q.6 hours p.r.n. PRN 04/22/22 05/05/22 Abdominal Pain hydrocortisone 2.5 % topical cream 1 applic RECTAL BID PRN Hemorrhoids 04/22/22 05/05/22 with perineal applicator Allergies Allergy/AdvReac Type Severity Reaction Status Date / Time No Known Allergies Allergy Verified 05/12/22 06:14 Review of Systems Constitutional: Comments: CONSTITUTIONAL: Denies fever, chills, or sweats. EYES: Denies visual changes, redness, or discharge. ENT: Denies rhinorrhea, congestion,, or otalgia. has sore throat CARDIOVASCULAR: Denies chest pain, palpitations, or edema. RESPIRATORY: Denies cough or dyspnea. GASTROINTESTINAL: Denies abdominal pain, nausea, vomiting, or diarrhea. GENITOURINARY: Denies dysuria or hematuria. SKIN: Denies rash or itching. MUSCULOSKELETAL: Denies back pain, joint pain, or myalgia. NEUROLOGIC: Denies headache, numbness, or weakness. PSYCHIATRIC: Denies anxiety or depression. [facility] Past Medical History Medical History (Updated 05/12/22 @ 07:30 by Maggi Clinton MD) Anemia Arthritis Arthritis of knee, right Chronic UTI Colitis DDD (degenerative disc disease) Depression Hypertension Leukocytosis Major depressive disorder, recurrent, mild Mixed hyperlipidemia Overactive bladder Psoriasis Sepsis Sinusitis Suspected 2019-nCoV infection Ulcerative colitis Ulcerative colitis Surgical History Surgical History (Updated 04/22/22 @ 13:18 by Elliot Lambert MD) H/O: hysterectomy History of laminectomy History of left knee replacement 12/19/2011 History of right knee joint replacement surgery April 22, 2021 Family History Family History Mother Leukemia Father Heart attack Depression Sibling Heart abnormality Social History Social History Smoking packs per day: 1 Smoking cigarettes per day: 20.0 Years smoked: 30 Smoking pack-years: 30.00 Smoking status: Former smoker Tobacco type: cigarettes Smoking end date: 04/11/09 Alcohol intake: never Substance use: never Substance use type: does not use Additional living arrangements comments: [place] Gender identity (if verbalized by the patient): Female Spiritual care concerns: No Exam Const: Other: APPEARANCE: Well appearing, no pain in distress, well-nourished. Head normocephalic atraumtaic. EYES: PERRLA/EOMI, conjunctivae very clear. NOSE: Normal no drainage EARS:TMS clear Dav Kessler, with good light reflex. THROAT: Pharynx clear, no exudate. has tiny vessilces back of throat no trismus or shift NECK: Supple. No adenopathy, no masses. RESPIRATORY: Airway patent, repsirations nonlabored. Clear to auscultation bilaterally, no rales, rhonchi, wheezing. CARDIOVASCULAR: Regular rate and rhythm without murmurs rubs or gallops. ABDOMINAL: Soft, nontender, nondistended, no hepatosplenomegally MUSCULOSKELETAl: Moves all extremities. Strenght/ROM intact, No edema, No calf tenderness. NEURO: Alert. Cranial nerves II through XII intact. Good gait. Good coordination SKIN:: Warm, dry. Normal Color PSYCHIATRIC: Normal af
== END 2022-05-12 07:55 | disposition home or self-care (01) ==
PROVIDERS: Emergency Provider Emergency Medicine; PCP Family Medicine Adolescent Medicine
DX: U07.1 COVID-19 (principal); D64.9 Anemia, unspecified; I10 Essential (primary) hypertension; E78.2 Mixed hyperlipidemia; N32.81 Overactive bladder; M17.11 Unilateral primary osteoarthritis, right knee; Z90.710 Acquired absence of both cervix and uterus; Z96.653 Presence of artificial knee joint, bilateral; Z87.891 Personal history of nicotine dependence
CPT/HCPCS: 99281

== ENCOUNTER 2022-05-24 11:06 | Outpatient (CLI) | payer MEDICARE, OTHER, SELFPAY ==
[2022-05-24 12:13] LABS: Toxigenic C. Diff NEGATIVE (NEGATIVE)
== END 2022-05-24 11:07 | disposition home or self-care (01) ==
LOC: ANHLAB 11:07
PROVIDERS: PCP Family Medicine Adolescent Medicine; Visit Provider Nurse Practitioner Family
DX: R19.7 Diarrhea, unspecified (principal)
CPT/HCPCS: 87493

== ENCOUNTER 2022-05-28 09:53 | Inpatient (IN) | payer MEDICARE, OTHER, SELFPAY ==
[2022-05-28] VITALS (28 sets, daily range): BP systolic 93–129; BP diastolic 41–62; PULSE 91–104; RESP 14–21; TEMP 36.6; O2SAT 88–97
--- NOTE | ~2022-05-28 | CT_ITS ---
EXAMINATION: CT abdomen pelvis wo con DATE: 05/28/2022 11:02 INDICATION: Left lower quadrant pain. TECHNIQUE: Computed tomography (CT) of the abdomen and pelvis was performed without intravenous contr ast. The dose-length product was 926.07 mGy-cm. Automated exposure control and iterative reconstructi on technique were employed. COMPARISON: CT dated 11/07/2020 FINDINGS: Lung bases are unremarkable. Mild emphysema. No significant pleural or pericardial effusion . There is a gastric diverticulum containing multiple calcifications. The liver, spleen, pancreas, ad renal glands and kidneys are unremarkable. Gallbladder is present. There is abnormal thickening of th e descending, sigmoid: With mild pericolonic fatty infiltration. No definite obstruction. No evidence for perforation or. No free air or free fluid. There are colonic diverticula. Mild osteoarthritis of the hips. Severe lumbar spondylosis. The liver, spleen, pancreas, adrenal glands and kidneys are unr emarkable. Gallbladder is distended. Small fat-containing umbilical hernia. IMPRESSION: 1. Abnormal thickening of the descending and sigmoid colon with surrounding inflammatory change and m ultiple diverticula. Findings suspicious for infectious or inflammatory colitis. 2: Gastric diverticulum containing multiple focal calcifications. Reviewed, dictated and finalized at location B. IMPRESSION: 1. Abnormal thickening of the descending and sigmoid colon with surrounding inf lammatory change and multiple diverticula. Findings suspicious for infectious o r inflammatory colitis. 2: Gastric diverticulum containing multiple focal calcifications.
[2022-05-28 10:24] LABS: Hematocrit 38.3 % (37.0-47.0); Hemoglobin 12.6 g/dL (12.0-15.0); Mean Corpuscular HGB Conc 32.9 g/dl (32-36); Mean Corpuscular Hemoglobin 28.6 pg (26-34); Mean Platelet Volume 8.5 fl (7.4-10.4); Platelet Count Result 507 k/mm3 (150-375); Red Cell Distribution Width 14.6 % (11.5-14.5); White Blood Count 37.5 K/mm3 (4.5-10.0)
[2022-05-28 10:33] LABS: Alanine Aminotransferase 33 U/L (6-35); Albumin Level 3.6 g/dL (3.5-5.1); Alkaline Phosphatase 218 U/L (38-126); Anion Gap 19 mmol/L (8-16); Aspartate Amino Transferase 28 U/L (14-36); Bilirubin,Total 1.5 mg/dL (0.2-1.3); Blood Urea Nitrogen 32 mg/dL (7-17); Calcium 9.3 mg/dL (8.4-10.2); Carbon Dioxide 20 mmol/L (22-30); Chloride 95 mmol/L (98-107); Estimated Glomerular Filt Rate 16; Glucose 147 mg/dL (65-110); Potassium 3.8 mmol/L (3.4-5.0); Sodium 134 mmol/L (137-145)
[2022-05-28 10:36] LABS: INR 1.2; Partial Thromboplastin Time 24.5 SECONDS (22.3-36.8); Prothrombin Time 14.9 Seconds (11.1-14.7)
[2022-05-28 10:58] LABS: Band Neutrophils Percent 20 % (0-6); Lymphocytes Absolute Manual 0.37 K/mm3 (1.1-4.5); Monocytes Absolute Manual 1.12 K/mm3 (0.1-0.90); Monocytes Percent Manual 3 % (3-9); Neutrophils Percent Manual 76 % (46-73); Platelet Estimate Increased (Adequate); Total Cells Counted 100
--- NOTE | 2022-05-28 11:16 | ED.GIBLEED ---
HPI - GI Bleed General Chief complaint: GI Bleed Stated complaint: blood in stool Time Seen by Provider: 05/28/22 09:57 History of Present Illness HPI Narrative: 76-year-old female with history of ulcerative colitis presents with several weeks of increasing worsening symptoms including abdominal pain now mostly in the left lower quadrant, nausea and vomiting, and bloody mucusy diarrhea. She states that she has been trying to follow-up with her doctor who put her on hyoscyamine and she has still been taking her mesalamine, however she is only been feeling worse. Related Data Home Medications Medication Instructions Recorded Confirmed multivitamin 1 tablet PO DAILY 01/15/21 05/05/22 cyanocobalamin (vitamin B-12) 500 1,000 mcg PO DAILY 04/09/21 05/05/22 mcg tablet magnesium 500 mg tablet 500 mg PO HS 04/09/21 05/05/22 ferrous sulfate 325 mg (65 mg 325 mg PO .COMPLEX 10/23/21 05/05/22 iron) tablet (Feosol) trimethoprim 100 mg tablet 100 mg PO DAILY 03/20/22 05/05/22 hydrocortisone 2.5 % topical cream 1 applic RECTAL BID PRN Hemorrhoids 04/22/22 05/05/22 with perineal applicator Allergies Allergy/AdvReac Type Severity Reaction Status Date / Time No Known Allergies Allergy Verified 05/28/22 10:51 Review of Systems Review of Systems: CONST: No fever. HEENT: No sore throat C/V: No chest pain RESP: No cough GI: Reports abdominal pain, nausea, vomiting[, diarrhea] : No dysuria. M/S: No joint pain. SKIN: No rash. NEURO: [No headache or focal numbness or weakness] PSYCH: [No depression] [facility] Past Medical History Medical History Anemia Arthritis Arthritis of knee, right Chronic UTI Colitis DDD (degenerative disc disease) Depression Hypertension Leukocytosis Major depressive disorder, recurrent, mild Mixed hyperlipidemia Overactive bladder Psoriasis Sepsis Sinusitis Suspected 2018-nCoV infection Ulcerative colitis Ulcerative colitis Surgical History Surgical History H/O: hysterectomy History of laminectomy History of left knee replacement 12/19/2011 History of right knee joint replacement surgery April 22, 2021 Family History Family History Mother Leukemia Father Heart attack Depression Sibling Heart abnormality Social History Social History Smoking packs per day: 1 Smoking cigarettes per day: 20.0 Years smoked: 30 Smoking pack-years: 30.00 Smoking status: Former smoker Tobacco type: cigarettes Smoking end date: 04/11/09 Alcohol intake: never Substance use: never Substance use type: does not use Additional living arrangements comments: [facility] Gender identity (if verbalized by the patient): Female Spiritual care concerns: No Exam Narrative: EXAMINATION OF ORGAN SYSTEMS/BODY AREAS: Constitutional: Vital signs per nursing GENERAL: Appears uncomfortable in bed HEAD: Normal with no signs of head trauma. EYES: EOMI, conjunctiva normal ENT: Hearing grossly intact LUNGS: Nonlabored breathing. HEART: [Regular rate and rhythm] ABD: [Soft], [tender to palpation left lower quadrant] RECTAL: Blood tinged mucus, no tenderness EXT: Normal range of motion SKIN: [No rashes or lesions.] NEURO: [Alert and oriented x 3. No gross focal sensory or strength deficits.] PSYCH: Normal affect Course Vital Signs Vital signs: Vital Signs Pulse Rate 104 H 05/28/22 10:46 Respiratory Rate 17 05/28/22 10:46 Blood Pressure 115/62 05/28/22 10:46 Pulse Oximetry 96 05/28/22 10:46 Oxygen Delivery Room Air 05/28/22 10:46 Pulse Rate 95 05/28/22 12:01 Respiratory Rate 16 05/28/22 12:01 Blood Pressure 101/46 L 05/28/22 12:01 Pulse Oximetry 95 05/28/22 12:01 Oxygen Delivery Room Air 05/28/22 10:46 MDM - GI Bleed MDM Narrative Medical dec
[2022-05-28] MEDS: SODIUM CHLORIDE 0.9% IV 1,000 ML 999 ML IV CONT (11:18)
[2022-05-28] MEDS: MORPHINE SULFATE (*CRX) 4 MG/ML INJ IV PUSH (11:19)
[2022-05-28] MEDS: ONDANSETRON INJ 4 MG/2 ML VIAL IV PUSH ×2 (11:19→18:50)
[2022-05-28] MEDS: PANTOPRAZOLE SODIUM IV 40 MG VIAL IV PUSH (11:19)
[2022-05-28] MEDS: LACTATED RINGERS 1,000 ML 999 ML IV CONT (12:19)
[2022-05-28] MEDS: metroNIDAZOLE 500 MG/ISO 100ML 500 MG/100 ML BAG 100 MG IVPB ×2 (12:20→20:48)
[2022-05-28] MEDS: LACTATED RINGERS 1,000 ML 125 ML IV CONT ×2 (13:27→20:48)
--- NOTE | 2022-05-28 14:08 | PC.NURSE ---
called ed for report, report received from [facility]
--- NOTE | 2022-05-28 14:24 | PC.NURSE ---
This patient, Daphne Garrison, was admitted to [facility] Room 300-01. Patient/family oriented to hospital policies and general routines including ID bracelet, bed and alarms, visiting hours, pain management, procedures, bathroom and other care routines, personal items, smoking policy, room service/diet, and visiting hours. Information on how to activate the Rapid Response Team has been discussed. Patient/Family are encouraged to report perceived risks to care and to ask questions if they do not understand what they are told or what they should do. arrived at 1424, report received from [facility]
--- NOTE | 2022-05-28 17:44 | PM.IMHP ---
H&P: HPI History of Present Illness Date/Time: 05/28/22 17:44 Chief Complaint: GI bleed Narrative: ED-HPI Narrative: 76-year-old female with history of ulcerative colitis presents with several weeks of increasing worsening symptoms including abdominal pain now mostly in the left lower quadrant, nausea and vomiting, and bloody mucusy diarrhea.? She states that she has been trying to follow-up with her doctor who put her on hyoscyamine and she has still been taking her mesalamine, however she is only been feeling worse. patient is a 76-year-old female with history of ulcerative colitis presented with complaint abdominal pain nausea or vomiting mucousy bloody diarrhea most likely patient has flare up ulcer to colitis patient started on Rocephin and Flagyl, will continue hyoscyamine and Mesalamine, for pain control will started on morphine, patient be seen by GI and further recommendation to follow. patient admitted as a inpatient most likely patient will stay in the hospital 2 midnights due to flare up ulcerative colitis. Review of Systems Review of Systems: CONST: No fever. HEENT: No sore throat C/V: No chest pain RESP: No cough GI: Reports abdominal pain, nausea, vomiting[, diarrhea] : No dysuria. M/S: No joint pain. SKIN: No rash. NEURO: [No headache or focal numbness or weakness] PSYCH: [No depression] [facility] Past Medical History Medical History Anemia Arthritis Arthritis of knee, right Chronic UTI Colitis DDD (degenerative disc disease) Depression Hypertension Leukocytosis Major depressive disorder, recurrent, mild Mixed hyperlipidemia Overactive bladder Psoriasis Sepsis Sinusitis Suspected 2018-nCoV infection Ulcerative colitis Ulcerative colitis Surgical History Surgical History H/O: hysterectomy History of laminectomy History of left knee replacement 12/19/2011 History of right knee joint replacement surgery April 22, 2021 Family History Family History Mother Leukemia Father Heart attack Depression Sibling Heart abnormality Social History Social History Smoking packs per day: 1 Smoking cigarettes per day: 20.0 Years smoked: 30 Smoking pack-years: 30.00 Smoking status: Never smoker Tobacco type: cigarettes Smoking end date: 04/11/09 Alcohol intake: never Substance use: never Substance use type: does not use Additional living arrangements comments: [facility] Gender identity (if verbalized by the patient): Female Spiritual care concerns: No Meds Home Medications and Allergies Home Medications Medication Instructions Recorded Confirmed Type multivitamin 1 tablet PO DAILY 01/15/21 05/28/22 History cyanocobalamin (vitamin B-12) 500 1,000 mcg PO DAILY 04/09/21 05/28/22 History mcg tablet magnesium 500 mg tablet 500 mg PO HS 04/09/21 05/28/22 History duloxetine 60 mg capsule,delayed 60 mg PO QAM #90 caps 01/21/22 05/28/22 Rx release metoprolol tartrate 50 mg tablet 50 mg PO BID #180 tabs 03/04/22 05/28/22 Rx trimethoprim 100 mg tablet 100 mg PO HS 03/20/22 05/28/22 History hydrocortisone 2.5 % topical cream 1 applic RECTAL BID PRN Hemorrhoids 04/22/22 05/28/22 History with perineal applicator hyoscyamine sulfate 0.375 mg 0.375 mg PO Q12H PRN abdominal 05/23/22 05/28/22 Rx tablet,extended release,12 hr discomfort #60 tabs (Levbid) celecoxib 200 mg capsule 200 mg PO DAILY 05/28/22 05/28/22 History mesalamine 400 mg capsule (with 400 mg PO BID 05/28/22 05/28/22 History delayed release tablets inside) Allergies Allergy/AdvReac Type Severity Reaction Status Date / Time No Known Allergies Allergy Verified 05/28/22 10:51 Vital Signs Vital Signs - 24 hr 05/28/22 10:46 05/28/22 11:18 05/28/22 11:19 Pulse Rate 104 H 101 H 100 Respir
[2022-05-28 17:55] LABS: Anion Gap 11 mmol/L (8-16); Blood Urea Nitrogen 32 mg/dL (7-17); Calcium 8.4 mg/dL (8.4-10.2); Carbon Dioxide 25 mmol/L (22-30); Chloride 97 mmol/L (98-107); Estimated CRCL calculation 21 ml/min; Estimated Glomerular Filt Rate 21; Glucose 108 mg/dL (65-110); Potassium 3.9 mmol/L (3.4-5.0); Sodium 133 mmol/L (137-145)
[2022-05-28] MEDS: METOPROLOL TARTRATE 50 MG TAB PO (18:30)
[2022-05-28] MEDS: MESALAMINE 400 MG DELAYED RELEASE CAPSULE 1200 MG PO (18:30)
[2022-05-28] MEDS: MAGNESIUM 27 MG TABLET (500 MG MAG GLUCONATE) PO (20:45)
[2022-05-28] MEDS: TRIMETHOPRIM 100 MG TABLET PO (20:45)
[2022-05-29] VITALS (10 sets, daily range): BP systolic 90–111; BP diastolic 21–53; PULSE 82–93; RESP 16–20; TEMP 36.5–36.7; O2SAT 95–98
[2022-05-29] MEDS: ONDANSETRON INJ 4 MG/2 ML VIAL IV PUSH ×2 (00:38→09:31)
[2022-05-29] MEDS: LACTATED RINGERS 1,000 ML 125 ML IV CONT ×3 (04:23→20:45)
[2022-05-29] MEDS: metroNIDAZOLE 500 MG/ISO 100ML 500 MG/100 ML BAG 100 MG IVPB ×3 (05:35→20:44)
[2022-05-29] MEDS: HYDROCORTISONE 2.5% CREAM 30 GM TUBE 1 APPLIC RECTAL (08:20)
[2022-05-29] MEDS: MESALAMINE 400 MG DELAYED RELEASE CAPSULE 1200 MG PO ×2 (08:21→16:37)
[2022-05-29] MEDS: MULTIVITAMINS THERAPEUTIC TAB (*BKC) 1 TABLET PO (08:21)
[2022-05-29] MEDS: CYANOCOBALAMIN 1,000 MCG TABLET 1000 MCG PO (08:21)
[2022-05-29 08:34] LABS: Hemoglobin 9.7 g/dL (12.0-15.0); Mean Corpuscular HGB Conc 32.3 g/dl (32-36); Mean Corpuscular Hemoglobin 28.8 pg (26-34); Mean Platelet Volume 8.4 fl (7.4-10.4); Platelet Count Result 400 k/mm3 (150-375); Red Blood Count 3.37 M/mm3 (4.2-5.4); Red Cell Distribution Width 14.9 % (11.5-14.5); White Blood Count 27.2 K/mm3 (4.5-10.0)
[2022-05-29 08:53] LABS: Alanine Aminotransferase 24 U/L (6-35); Albumin Level 2.7 g/dL (3.5-5.1); Alkaline Phosphatase 146 U/L (38-126); Anion Gap 9 mmol/L (8-16); Aspartate Amino Transferase 23 U/L (14-36); Bilirubin,Total 0.5 mg/dL (0.2-1.3); Blood Urea Nitrogen 34 mg/dL (7-17); Calcium 7.6 mg/dL (8.4-10.2); Carbon Dioxide 24 mmol/L (22-30); Chloride 97 mmol/L (98-107); Estimated CRCL calculation 22 ml/min; Estimated Glomerular Filt Rate 22; Glucose 91 mg/dL (65-110); Potassium 4.1 mmol/L (3.4-5.0); Sodium 130 mmol/L (137-145)
--- NOTE | 2022-05-29 09:02 | PC.NURSE ---
pain medication changed to hydromorphone 0.5 mg IV push q3h, 500 ml/hr NS bolus given r/t soft bp 90/45 this am, metoprolol 50 mg PO held, and duloxetine 60 mg PO r/t soft bp this am. MD Farooq notified, MD Farooq stated get bolus prior to administering pain medication.
[2022-05-29] MEDS: SODIUM CHLORIDE 0.9% IV 500 ML IV CONT ×2 (09:30→13:16)
[2022-05-29] MEDS: HYDROmorphone HCL INJ (*CRX) 1 MG/ML SYR 0.5 MG IV PUSH (09:30)
--- NOTE | 2022-05-29 14:22 | PM.IMPN ---
Progress Note: A&P Assessment and Plan (1) Ulcerative colitis: Code(s): K51.90 - Ulcerative colitis, unspecified, without complications Status: Acute Assessment and Plan: patient is a 76-year-old female with history of ulcerative colitis presented with complaint abdominal pain nausea or vomiting mucousy bloody diarrhea most likely patient has flare up ulcer to colitis patient started on Rocephin and Flagyl, will continue hyoscyamine and Mesalamine, for pain control will started on morphine, patient be seen by GI and further recommendation to follow. 05/29/2022 interval history: patient is a 76-year-old female with history of ulcerative colitis presented with complaint abdominal pain nausea, vomiting and mucousy bloody diarrhea most likely patient has flare up ulcer to colitis patient started on Rocephin and Flagyl, will continue hyoscyamine and Mesalamine, for pain control patient was started on morphine, however patient blood pressure is soft 2/2 hypovolemia as patient has po intake, patient was given NS 500cc bolus and will continue IVF 125cc/hr, remains clinically patient will be seen by GI and further recommendation to follow. (2) JOVANA (acute kidney injury): Code(s): N17.9 - Acute kidney failure, unspecified Status: Acute Assessment and Plan: most likely secondary to dehydration due to poor p.o. intake will gently hydrate the patient and monitor (3) Major depressive disorder, recurrent, mild: Code(s): F33.0 - Major depressive disorder, recurrent, mild Status: Chronic Assessment and Plan: most likely reactive secondary to chronic medical problems will resume home medication and monitor (4) Leukocytosis: Qualifiers: Leukocytosis type: unspecified Qualified Code(s): D72.829 - Elevated white blood cell count, unspecified Code(s): D72.829 - Elevated white blood cell count, unspecified Status: Acute Assessment and Plan: most likely secondary to flare up of ulcerative colitis patient is being treated with ceftriaxone and Flagyl will continue to monitor Subjective Date/time seen: 05/29/22 14:22 05/29/2022 interval history: patient is a 76-year-old female with history of ulcerative colitis presented with complaint abdominal pain nausea, vomiting and mucousy bloody diarrhea most likely patient has flare up ulcer to colitis patient started on Rocephin and Flagyl, will continue hyoscyamine and Mesalamine, for pain control patient was started on morphine, however patient blood pressure is soft 2/2 hypovolemia as patient has po intake, patient was given NS 500cc bolus and will continue IVF 125cc/hr, remains clinically patient will be seen by GI and further recommendation to follow. Exam Narrative: moderately obese female in pain Patient is comfortable, NAD HEENT: eyes are clear and none icteric LUNGS: normal respiratory effort ABD: distended Lower extremities: no edema SKIN: nonjaundiced Neuro: grossly intact. Objective Data Vital Signs Vital Signs: Vital Signs - 24 hr 05/28/22 15:16 05/28/22 18:29 05/28/22 18:30 Temperature Pulse Rate 93 101 H 101 H Respiratory Rate 20 Blood Pressure 129/52 L Pulse Oximetry 95 Oxygen Delivery Room Air 05/28/22 20:00 05/28/22 22:00 05/28/22 22:25 Temperature 97.8 F Pulse Rate 94 Respiratory Rate 18 Blood Pressure 109/56 L Pulse Oximetry 96 96 Oxygen Delivery Room Air Room Air 05/29/22 06:00 05/29/22 08:20 05/29/22 08:24 Temperature 97.7 F Pulse Rate 85 82 82 Respiratory Rate 16 Blood Pressure 111/50 L 90/45 L Pulse Oximetry 97 Oxygen Delivery 05/29/22 08:00 05/29/22 10:59 05/29/22 12:37 Temperature Pulse Rate 82 84 87 Respiratory Rate 16 Blood Pressure 91/53 L 91/45 L Pulse Oximetry 97 Oxygen Delivery Room Air 05/29/22 13:00 05/29/22 13:49 05/29/22 13:58 Temperature 98.1 F Pulse Rate 93 Respiratory Rate 2
--- NOTE | 2022-05-29 14:50 | PC.NURSE ---
talked to Md Adams stated will see pt today, pt is on list
--- NOTE | 2022-05-29 15:20 | PC.NURSE ---
pt received x2 500 ml/hr bolus r/t soft bp this shift, started pt on IV tylenol, and limiting hydromorphone 0.5mg IV push usage r/t soft bp's
--- NOTE | 2022-05-29 18:10 | WPDGICN ---
Assessment and Plan Assessment and plan (1) Ulcerative colitis: Code(s): K51.90 - Ulcerative colitis, unspecified, without complications Status: Acute Assessment and Plan: will check stool for infection start iv steroids, continue antibiotics and mesalamine will get HBV/TB status, I think she will need to be on biologics (like anti tnf, entyvio, stelara, etc) because recurrent symptoms colonoscopy at a later time (2) Leukocytosis: Code(s): D72.829 - Elevated white blood cell count, unspecified Status: Acute Assessment and Plan: continue to monitor (3) JOVANA (acute kidney injury): Code(s): N17.9 - Acute kidney failure, unspecified Status: Acute Assessment and Plan: medical treatment GI Consult Note Consult date/time: 05/29/22 18:10 HPI: Daphne Garrison is a 76 year old female She has PMH of depression, hypertension and recurrent colitis (first episode 05/2020 then similar episode on 08/2020 both times treated empirically with oral antibiotics with some improvement of symptoms), finally I performed a colonoscopy on 10/2020 showed pancolitis confirmed by bx (sigmoid to ascending colon), also diverticulosis and indefinite for dysplasia due to inflammation, started on mesalamine 800 mg t.i.d. it was recommended she repeat colonoscopy in 6 months but this was never completed. She is here with several days of worsening symptoms including abdominal pain now mostly in the left lower quadrant, nausea and vomiting, and bloody with mucus diarrhea. CT scan a/p reviewed, abnormal thickening of the descending and sigmoid colon with surrounding inflammatory change and multiple diverticula. Findings suspicious for infectious or inflammatory colitis. Patient started on iv antibiotics. Review of Systems Review of Systems: CONST: No fever. HEENT: No sore throat C/V: No chest pain RESP: No cough GI: Reports abdominal pain, nausea, vomiting[, diarrhea] : No dysuria. M/S: No joint pain. SKIN: No rash. NEURO: [No headache or focal numbness or weakness] PSYCH: [No depression] [facility] Past Medical History Medical History Anemia Arthritis Arthritis of knee, right Chronic UTI Colitis DDD (degenerative disc disease) Depression Hypertension Leukocytosis Major depressive disorder, recurrent, mild Mixed hyperlipidemia Overactive bladder Psoriasis Sepsis Sinusitis Suspected 2018-nCoV infection Ulcerative colitis Ulcerative colitis Surgical History Surgical History H/O: hysterectomy History of laminectomy History of left knee replacement 12/19/2011 History of right knee joint replacement surgery April 22, 2021 Family History Family History Mother Leukemia Father Heart attack Depression Sibling Heart abnormality Social History Social History Smoking packs per day: 1 Smoking cigarettes per day: 20.0 Years smoked: 30 Smoking pack-years: 30.00 Smoking status: Never smoker Tobacco type: cigarettes Smoking end date: 04/11/09 Alcohol intake: never Substance use: never Substance use type: does not use Additional living arrangements comments: [facility] Gender identity (if verbalized by the patient): Female Spiritual care concerns: No Meds Home Medications and Allergies Home Medications Medication Instructions Recorded Confirmed Type multivitamin 1 tablet PO DAILY 01/15/21 05/28/22 History cyanocobalamin (vitamin B-12) 500 1,000 mcg PO DAILY 04/09/21 05/28/22 History mcg tablet magnesium 500 mg tablet 500 mg PO HS 04/09/21 05/28/22 History duloxetine 60 mg capsule,delayed 60 mg PO QAM #90 caps 01/21/22 05/28/22 Rx release metoprolol tartrate 50 mg tablet 50 mg PO BID #180 tabs 03/04/22 05/28/22 Rx trimethoprim 100 mg tablet 100 mg PO HS
--- NOTE | 2022-05-29 18:12 | PC.NURSE ---
Pt seen by MD Adams this shift
[2022-05-29] MEDS: methylPREDNISolone SOD SUCC 40 MG VIAL IV PUSH (20:44)
[2022-05-29] MEDS: TRIMETHOPRIM 100 MG TABLET PO (20:45)
[2022-05-29] MEDS: MAGNESIUM 27 MG TABLET (500 MG MAG GLUCONATE) PO (20:45)
[2022-05-29 22:03] LABS: Toxigenic C. Diff NEGATIVE (NEGATIVE)
[2022-05-30 05:32] VITALS: BP 120/53; PULSE 88; RESP 16; TEMP 36.1; O2SAT 92
--- NOTE | 2022-05-30 06:14 | PC.NURSE ---
no stools overnight
[2022-05-30 06:29] LABS: Hematocrit 29.4 % (37.0-47.0); Hemoglobin 9.5 g/dL (12.0-15.0); Mean Corpuscular HGB Conc 32.3 g/dl (32-36); Mean Corpuscular Hemoglobin 28.8 pg (26-34); Mean Corpuscular Volume 89.1 fl (80-100); Mean Platelet Volume 8.6 fl (7.4-10.4); Platelet Count Result 422 k/mm3 (150-375); White Blood Count 19.2 K/mm3 (4.5-10.0)
[2022-05-30] MEDS: metroNIDAZOLE 500 MG/ISO 100ML 500 MG/100 ML BAG 100 MG IVPB ×3 (06:32→20:01)
[2022-05-30] MEDS: methylPREDNISolone SOD SUCC 40 MG VIAL IV PUSH ×3 (06:32→19:58)
[2022-05-30] MEDS: LACTATED RINGERS 1,000 ML 125 ML IV CONT ×2 (06:32→09:11)
[2022-05-30 07:02] LABS: Alanine Aminotransferase 20 U/L (6-35); Albumin Level 2.4 g/dL (3.5-5.1); Alkaline Phosphatase 166 U/L (38-126); Anion Gap 6 mmol/L (8-16); Aspartate Amino Transferase 18 U/L (14-36); Bilirubin,Total 0.3 mg/dL (0.2-1.3); Blood Urea Nitrogen 28 mg/dL (7-17); Carbon Dioxide 25 mmol/L (22-30); Chloride 103 mmol/L (98-107); Estimated CRCL calculation 27 ml/min; Estimated Glomerular Filt Rate 27; Glucose 156 mg/dL (65-110); Magnesium 2.3 mg/dL (1.6-2.3); Sodium 134 mmol/L (137-145)
[2022-05-30 07:45] LABS: Hepatitis B Surface Antigen Negative (Negative)
[2022-05-30 08:02] LABS: Hepatitis B Surface Anti Res Negative
[2022-05-30 09:09] VITALS: PULSE 95
[2022-05-30] MEDS: METOPROLOL TARTRATE 50 MG TAB PO ×2 (09:09→16:45)
[2022-05-30] MEDS: CYANOCOBALAMIN 1,000 MCG TABLET 1000 MCG PO (09:09)
[2022-05-30] MEDS: MULTIVITAMINS THERAPEUTIC TAB (*BKC) 1 TABLET PO (09:09)
[2022-05-30] MEDS: MESALAMINE 400 MG DELAYED RELEASE CAPSULE 1200 MG PO ×2 (09:09→16:45)
[2022-05-30] MEDS: DULoxetine HCL 60 MG CAPSULE.DR PO (09:09)
--- NOTE | 2022-05-30 11:44 | PM.IMPN ---
Progress Note: A&P Assessment and Plan (1) Ulcerative colitis: Code(s): K51.90 - Ulcerative colitis, unspecified, without complications Status: Acute Assessment and Plan: patient is a 76-year-old female with history of ulcerative colitis presented with complaint abdominal pain nausea or vomiting mucousy bloody diarrhea most likely patient has flare up ulcer to colitis patient started on Rocephin and Flagyl, will continue hyoscyamine and Mesalamine, for pain control will started on morphine, patient be seen by GI and further recommendation to follow. 05/29/2022 interval history: patient is a 76-year-old female with history of ulcerative colitis presented with complaint abdominal pain nausea, vomiting and mucousy bloody diarrhea most likely patient has flare up ulcer to colitis patient started on Rocephin and Flagyl, will continue hyoscyamine and Mesalamine, for pain control patient was started on morphine, however patient blood pressure is soft 2/2 hypovolemia as patient has po intake, patient was given NS 500cc bolus and will continue IVF 125cc/hr, remains clinically patient will be seen by GI and further recommendation to follow. 05/30/2022 interval history: patient is a 76-year-old female with history of ulcerative colitis presented with complaint abdominal pain nausea, vomiting and mucousy bloody diarrhea most likely patient has flare up ulcerative colitis patient started on Rocephin and Flagyl, will continue hyoscyamine and Mesalamine, patient was seen by GI and added a steroid recommend stool culture to rule out infection, for pain control patient was started on morphine, however patient blood pressure is soft 2/2 hypovolemia as patient has poor po intake, patient was given NS 500cc bolus and will continue IVF 125cc/hr, remains clinically stable, today patient states the pain is controlled and overall feeling much better will have a PT OT evaluate the patient and further recommendation to (2) JOVANA (acute kidney injury): Code(s): N17.9 - Acute kidney failure, unspecified Status: Acute Assessment and Plan: most likely secondary to dehydration due to poor p.o. intake will gently hydrate the patient and monitor (3) Major depressive disorder, recurrent, mild: Code(s): F33.0 - Major depressive disorder, recurrent, mild Status: Chronic Assessment and Plan: most likely reactive secondary to chronic medical problems will resume home medication and monitor (4) Leukocytosis: Qualifiers: Leukocytosis type: unspecified Qualified Code(s): D72.829 - Elevated white blood cell count, unspecified Code(s): D72.829 - Elevated white blood cell count, unspecified Status: Acute Assessment and Plan: most likely secondary to flare up of ulcerative colitis patient is being treated with ceftriaxone and Flagyl will continue to monitor Subjective Date/time seen: 05/30/22 11:44 05/30/2022 interval history: patient is a 76-year-old female with history of ulcerative colitis presented with complaint abdominal pain nausea, vomiting and mucousy bloody diarrhea most likely patient has flare up ulcerative colitis patient started on Rocephin and Flagyl, will continue hyoscyamine and Mesalamine, patient was seen by GI and added a steroid recommend stool culture to rule out infection, for pain control patient was started on morphine, however patient blood pressure is soft 2/2 hypovolemia as patient has poor po intake, patient was given NS 500cc bolus and will continue IVF 125cc/hr, remains clinically stable, today patient states the pain is controlled and overall feeling much better will have a PT OT evaluate the patient and further recommendation to Exam Narrative: moderately obese female in pain Patient is comfortable, NAD HEENT: eyes are clear and none icteric LUNGS: normal respiratory effort ABD: distended Lower extremities: no edema SKIN: nonjaundiced N
[2022-05-30 13:37] VITALS: BP 118/72; PULSE 77; RESP 20; TEMP 36.7; O2SAT 95
--- NOTE | 2022-05-30 15:31 | WPDGIPROGNO ---
Progress Note: A&P Assessment and Plan (1) Ulcerative colitis: Code(s): K51.90 - Ulcerative colitis, unspecified, without complications Status: Acute Assessment and Plan: feeling better with medical management, on iv steroids, abx and oral mesalamine (stool negative for infection) HBV/TB status pending I think patient will need to be on biologics, home in 1-2 days and then can follow-up office in 3-4 weeks to talk about it she was supposed to have a colonoscopy today but postpone until flare up resolved (2) JOVANA (acute kidney injury): Code(s): N17.9 - Acute kidney failure, unspecified Status: Acute Assessment and Plan: improving (3) Leukocytosis: Code(s): D72.829 - Elevated white blood cell count, unspecified Status: Acute Assessment and Plan: improving Subjective Date/time seen: 05/30/22 15:31 Interval history: feeling better today with less diarrhea and abdominal pain Review of Systems Review of Systems: All systems reviewed & are unremarkable except as noted in HPI and below Exam Const: General: uncomfortable HENMT: General nose exam: Normal nares present Eyes: General: appearance normal, both eyes and all related structures Neck: Neck: supple Resp: Auscultation: clear to auscultation bilaterally Cardio: Rate: regular rate GI: Inspection: distended GI Palp: Yes Soft to palpation and Yes Tenderness to palpation present (GI) (less tender, no rebound) Skin: General skin exam: normal color Neuro: Speech: normal speech Extrem: General: normal to inspection Psych: Affect: normal affect Objective Data Vital Signs Vital Signs: Vital Signs - 24 hr 05/29/22 21:19 05/29/22 20:00 05/30/22 05:32 Temperature 98.0 F 96.9 F L Pulse Rate 93 88 Respiratory Rate 16 16 Blood Pressure 111/42 L 120/53 L Pulse Oximetry 98 92 Oxygen Delivery Room Air 05/30/22 09:09 05/30/22 08:00 05/30/22 13:37 Temperature 98.1 F Pulse Rate 95 77 Respiratory Rate 20 Blood Pressure 118/72 Pulse Oximetry 95 Oxygen Delivery Room Air Intake/Output Intake/Output: Intake & Output 05/27/22 05/28/22 05/29/22 05/30/22 23:59 23:59 23:59 23:59 Intake Total 3350 5140 3190 Output Total 1100 Balance 3350 5140 2090 Meds/Results Medications: Active Medications Generic Name Dose Route Start Last Admin Trade Name Loan PRN Reason Stop Dose Admin Cyanocobalamin 1,000 mcg 05/29/22 09:00 05/30/22 09:09 Cyanocobalamin 1,000 Mcg Tablet PO 1,000 mcg DAILY JAYESH Administration Duloxetine HCl 60 mg 05/29/22 09:00 05/30/22 09:09 Duloxetine Hcl 60 Mg Capsule.Dr PO 60 mg QAM JAYESH Administration Hydrocortisone 1 applic 05/28/22 17:41 05/29/22 08:20 Hydrocortisone 2.5% Cream 30 Gm Tube RECTAL 1 applic BID PRN Administration Hemorrhoids Hydromorphone HCl 0.5 mg 05/29/22 09:01 05/29/22 09:30 Hydromorphone Hcl Inj (*Crx) 1 Mg/Ml Syr IV PUSH 0.5 mg Q3H PRN Administration Pain Rated 7-10 Hyoscyamine 0.375 mg 05/28/22 17:31 Hyoscyamine Sulfate 0.375 Mg Tab.Er.12h PO Q12H PRN abdominal discomfort Ceftriaxone Sodium/Dextrose 1 gm in 50 mls @ 100 mls/hr 05/29/22 12:00 05/30/22 14:49 Rocephin 1 Gm/D5w 50 Ml IVPB 100 mls/hr NOON JAYESH Infusion Metronidazole 500 mg in 100 mls @ 100 mls/hr 05/28/22 22:00 05/30/22 14:48 Flagyl 500 Mg/Iso Soln 100 Ml IVPB Infused Q8HR JAYESH Infusion Lactated Ringer's 1,000 mls @ 125 mls/hr 05/28/22 12:00 05/30/22 14:49 Lr - Lactated Ringers Iv IV CONT 0 mls/hr .Q8H JAYESH Infusion Magnesium Gluconate 27 mg 05/28/22 21:00 05/29/22 20:45 Magnesium 27 Mg Tablet (500 Mg Mag Gluconate) PO 27 mg HS JAYESH Administration Mesalamine 1,200 mg 05/28/22 17:45 05/30/22 09:09 Mesalamine 400 Mg Delayed Release Capsule PO 1,200 mg BID JAYESH Administration Methylprednisolone Sodium Succinate 40 mg 05/29/22 22:00 05/30/22
[2022-05-30 16:45] VITALS: PULSE 84
[2022-05-30] MEDS: TRIMETHOPRIM 100 MG TABLET PO (19:58)
[2022-05-30] MEDS: MAGNESIUM 27 MG TABLET (500 MG MAG GLUCONATE) PO (19:58)
[2022-05-30 20:00] VITALS: PULSE 84; RESP 20; O2SAT 95
[2022-05-30 21:28] VITALS: BP 130/65; PULSE 80; RESP 18; TEMP 36.7; O2SAT 95
[2022-05-31] VITALS (7 sets, daily range): BP systolic 122–128; BP diastolic 56–67; PULSE 68–86; RESP 18; TEMP 36.1–36.8; O2SAT 95–97
[2022-05-31] MEDS: LACTATED RINGERS 1,000 ML 125 ML IV CONT ×3 (00:24→19:32)
[2022-05-31 06:09] LABS: Hematocrit 29.3 % (37.0-47.0); Hemoglobin 9.5 g/dL (12.0-15.0); Mean Corpuscular HGB Conc 32.4 g/dl (32-36); Mean Corpuscular Hemoglobin 28.9 pg (26-34); Mean Corpuscular Volume 89.1 fl (80-100); Mean Platelet Volume 8.5 fl (7.4-10.4); Platelet Count Result 384 k/mm3 (150-375); Red Blood Count 3.29 M/mm3 (4.2-5.4); Red Cell Distribution Width 15.1 % (11.5-14.5); White Blood Count 17.9 K/mm3 (4.5-10.0)
[2022-05-31 06:24] LABS: Alanine Aminotransferase 18 U/L (6-35); Albumin Level 2.5 g/dL (3.5-5.1); Alkaline Phosphatase 161 U/L (38-126); Anion Gap 7 mmol/L (8-16); Aspartate Amino Transferase 21 U/L (14-36); Bilirubin,Total 0.2 mg/dL (0.2-1.3); Blood Urea Nitrogen 26 mg/dL (7-17); Calcium 8.2 mg/dL (8.4-10.2); Carbon Dioxide 25 mmol/L (22-30); Chloride 101 mmol/L (98-107); Estimated CRCL calculation 36 ml/min; Estimated Glomerular Filt Rate 40; Glucose 130 mg/dL (65-110); Magnesium 2.3 mg/dL (1.6-2.3); Sodium 133 mmol/L (137-145)
[2022-05-31] MEDS: DULoxetine HCL 60 MG CAPSULE.DR PO (08:20)
[2022-05-31] MEDS: metroNIDAZOLE 500 MG/ISO 100ML 500 MG/100 ML BAG 100 MG IVPB ×3 (08:20→20:36)
[2022-05-31] MEDS: METOPROLOL TARTRATE 50 MG TAB PO ×2 (08:20→17:11)
[2022-05-31] MEDS: CYANOCOBALAMIN 1,000 MCG TABLET 1000 MCG PO (08:20)
[2022-05-31] MEDS: ONDANSETRON INJ 4 MG/2 ML VIAL IV PUSH (08:20)
[2022-05-31] MEDS: methylPREDNISolone SOD SUCC 40 MG VIAL IV PUSH ×3 (08:20→20:37)
[2022-05-31] MEDS: MULTIVITAMINS THERAPEUTIC TAB (*BKC) 1 TABLET PO (08:21)
[2022-05-31] MEDS: MESALAMINE 400 MG DELAYED RELEASE CAPSULE 1200 MG PO ×2 (08:22→17:11)
[2022-05-31] MEDS: HYOSCYAMINE SULFATE 0.375 MG TAB.ER.12H PO (10:11)
--- NOTE | 2022-05-31 10:28 | PM.IMPN ---
Progress Note: A&P Assessment and Plan (1) Ulcerative colitis: Code(s): K51.90 - Ulcerative colitis, unspecified, without complications Status: Acute Assessment and Plan: patient is a 76-year-old female with history of ulcerative colitis presented with complaint abdominal pain nausea or vomiting mucousy bloody diarrhea most likely patient has flare up ulcer to colitis patient started on Rocephin and Flagyl, will continue hyoscyamine and Mesalamine, for pain control will started on morphine, patient be seen by GI and further recommendation to follow. 05/29/2022 interval history: patient is a 76-year-old female with history of ulcerative colitis presented with complaint abdominal pain nausea, vomiting and mucousy bloody diarrhea most likely patient has flare up ulcer to colitis patient started on Rocephin and Flagyl, will continue hyoscyamine and Mesalamine, for pain control patient was started on morphine, however patient blood pressure is soft 2/2 hypovolemia as patient has po intake, patient was given NS 500cc bolus and will continue IVF 125cc/hr, remains clinically patient will be seen by GI and further recommendation to follow. 05/30/2022 interval history: patient is a 76-year-old female with history of ulcerative colitis presented with complaint abdominal pain nausea, vomiting and mucousy bloody diarrhea most likely patient has flare up ulcerative colitis patient started on Rocephin and Flagyl, will continue hyoscyamine and Mesalamine, patient was seen by GI and added a steroid recommend stool culture to rule out infection, for pain control patient was started on morphine, however patient blood pressure is soft 2/2 hypovolemia as patient has poor po intake, patient was given NS 500cc bolus and will continue IVF 125cc/hr, remains clinically stable, today patient states the pain is controlled and overall feeling much better will have a PT OT evaluate the patient and further recommendation to follow. 05/31/2022 interval history: patient is a 76-year-old female with history of ulcerative colitis presented with complaint abdominal pain nausea, vomiting and mucousy bloody diarrhea most likely patient has flare up ulcerative colitis patient was started on Rocephin and Flagyl, continued hyoscyamine and Mesalamine, patient was seen by GI and added a steroid methylprednisone 40 mg Q8, recommend stool culture to rule out infection so far no growth, for pain control patient was started on morphine, however patient blood pressure was soft 2/2 hypovolemia as patient has poor po intake, patient was given NS 500cc bolus and will continue IVF 125cc/hr, remains clinically stable, today patient states the pain pain is getting worse see had a couple of bowel movement last night and does not feel very well, will continue to monitor patient be seen by GI and further recommendation to follow, will have a PT OT to evaluate the patient and further recommendation to follow. (2) JOVANA (acute kidney injury): Code(s): N17.9 - Acute kidney failure, unspecified Status: Acute Assessment and Plan: most likely secondary to dehydration due to poor p.o. intake will gently hydrate the patient and monitor (3) Major depressive disorder, recurrent, mild: Code(s): F33.0 - Major depressive disorder, recurrent, mild Status: Chronic Assessment and Plan: most likely reactive secondary to chronic medical problems will resume home medication and monitor (4) Leukocytosis: Qualifiers: Leukocytosis type: unspecified Qualified Code(s): D72.829 - Elevated white blood cell count, unspecified Code(s): D72.829 - Elevated white blood cell count, unspecified Status: Acute Assessment and Plan: most likely secondary to flare up of ulcerative colitis patient is being treated with ceftriaxone and Flagyl will continue to monitor Subjective Date/time seen: 05/31/22 10:28 05/31/2022 interval hist
--- NOTE | 2022-05-31 13:36 | WPDGIPROGNO ---
Progress Note: A&P Assessment and Plan (1) Ulcerative colitis: Code(s): K51.90 - Ulcerative colitis, unspecified, without complications Status: Acute Assessment and Plan: feeling better with medical management, on iv steroids, abx and oral mesalamine (stool negative for infection) HBV/TB status pending had again abdominal cramping and using levsin prn I think patient will need to be on biologics, hopefully home tomorrow if she is clinically better and then can follow-up office in 3-4 weeks to talk about it she was supposed to have a colonoscopy last Thursday but postponed until flare up resolved (2) JOVANA (acute kidney injury): Code(s): N17.9 - Acute kidney failure, unspecified Status: Acute Assessment and Plan: improving (3) Leukocytosis: Code(s): D72.829 - Elevated white blood cell count, unspecified Status: Acute Assessment and Plan: monitor Subjective Date/time seen: 05/31/22 13:36 Interval history: yesterday again had more abdominal cramping but no blood in stools and has been tolerating diet Review of Systems Review of Systems: All systems reviewed & are unremarkable except as noted in HPI and below Exam Const: General: uncomfortable HENMT: General nose exam: Normal nares present Eyes: General: appearance normal, both eyes and all related structures Neck: Neck: supple Resp: Auscultation: clear to auscultation bilaterally Cardio: Rate: regular rate GI: Inspection: distended GI Palp: Yes Soft to palpation and Yes Tenderness to palpation present (GI) (less tender, no rebound) Skin: General skin exam: normal color Neuro: Speech: normal speech Extrem: General: normal to inspection Psych: Affect: normal affect Objective Data Vital Signs Vital Signs: Vital Signs - 24 hr 05/30/22 13:37 05/30/22 16:45 05/30/22 20:00 Temperature 98.1 F Pulse Rate 77 84 84 Respiratory Rate 20 20 Blood Pressure 118/72 Pulse Oximetry 95 95 Oxygen Delivery Room Air 05/30/22 21:28 05/31/22 05:30 05/31/22 08:20 Temperature 98.0 F 97.6 F Pulse Rate 80 86 78 Respiratory Rate 18 18 Blood Pressure 130/65 128/56 L Pulse Oximetry 95 96 Oxygen Delivery Intake/Output Intake/Output: Intake & Output 05/28/22 05/29/22 05/30/22 05/31/22 23:59 23:59 23:59 23:59 Intake Total 3350 5140 4480 1989 Output Total 2300 600 Balance 3350 5140 2180 1390 Meds/Results Medications: Active Medications Generic Name Dose Route Start Last Admin Trade Name Freq PRN Reason Stop Dose Admin Cyanocobalamin 1,000 mcg 05/29/22 09:00 05/31/22 08:20 Cyanocobalamin 1,000 Mcg Tablet PO 1,000 mcg DAILY JAYESH Administration Duloxetine HCl 60 mg 05/29/22 09:00 05/31/22 08:20 Duloxetine Hcl 60 Mg Capsule.Dr PO 60 mg QAM JAYESH Administration Hydrocortisone 1 applic 05/28/22 17:41 05/29/22 08:20 Hydrocortisone 2.5% Cream 30 Gm Tube RECTAL 1 applic BID PRN Administration Hemorrhoids Hydromorphone HCl 0.5 mg 05/29/22 09:01 05/29/22 09:30 Hydromorphone Hcl Inj (*Crx) 1 Mg/Ml Syr IV PUSH 0.5 mg Q3H PRN Administration Pain Rated 7-10 Hyoscyamine 0.375 mg 05/28/22 17:31 05/31/22 10:11 Hyoscyamine Sulfate 0.375 Mg Tab.Er.12h PO 0.375 mg Q12H PRN Administration abdominal discomfort Ceftriaxone Sodium/Dextrose 1 gm in 50 mls @ 100 mls/hr 05/29/22 12:00 05/31/22 12:07 Rocephin 1 Gm/D5w 50 Ml IVPB 100 mls/hr NOON JAYESH Administration Metronidazole 500 mg in 100 mls @ 100 mls/hr 05/28/22 22:00 05/31/22 12:08 Flagyl 500 Mg/Iso Soln 100 Ml IVPB 0 mls/hr Q8HR JAYESH Infusion Lactated Ringer's 1,000 mls @ 125 mls/hr 05/28/22 12:00 05/31/22 12:08 Lr - Lactated Ringers Iv IV CONT 0 mls/hr .Q8H JAYESH Infusion Magnesium Gluconate 27 mg 05/28/22 21:00 05/30/22 19:58 Magnesium 27 Mg Tablet (500 Mg Mag Gluconate) PO 27 mg HS JAYESH Administration Mesalamine 1,200 mg
[2022-05-31] MEDS: MAGNESIUM 27 MG TABLET (500 MG MAG GLUCONATE) PO (20:36)
[2022-05-31] MEDS: TRIMETHOPRIM 100 MG TABLET PO (20:36)
[2022-06-01] MEDS: LACTATED RINGERS 1,000 ML 125 ML IV CONT (04:33)
[2022-06-01] MEDS: metroNIDAZOLE 500 MG/ISO 100ML 500 MG/100 ML BAG 100 MG IVPB (05:06)
[2022-06-01 05:16] VITALS: BP 134/62; PULSE 67; RESP 18; TEMP 36.6; O2SAT 98
[2022-06-01] MEDS: methylPREDNISolone SOD SUCC 40 MG VIAL IV PUSH (05:18)
[2022-06-01 06:07] LABS: Hematocrit 28.7 % (37.0-47.0); Hemoglobin 9.1 g/dL (12.0-15.0); Mean Corpuscular HGB Conc 31.7 g/dl (32-36); Mean Corpuscular Hemoglobin 28.3 pg (26-34); Mean Corpuscular Volume 89.4 fl (80-100); Mean Platelet Volume 8.5 fl (7.4-10.4); Platelet Count Result 373 k/mm3 (150-375); Red Blood Count 3.21 M/mm3 (4.2-5.4); Red Cell Distribution Width 15.2 % (11.5-14.5)
[2022-06-01 06:33] LABS: Alanine Aminotransferase 16 U/L (6-35); Albumin Level 2.4 g/dL (3.5-5.1); Alkaline Phosphatase 133 U/L (38-126); Anion Gap 6 mmol/L (8-16); Aspartate Amino Transferase 15 U/L (14-36); Bilirubin,Total 0.2 mg/dL (0.2-1.3); Blood Urea Nitrogen 23 mg/dL (7-17); Calcium 8.2 mg/dL (8.4-10.2); Carbon Dioxide 25 mmol/L (22-30); Chloride 102 mmol/L (98-107); Estimated CRCL calculation 47 ml/min; Estimated Glomerular Filt Rate 54; Glucose 122 mg/dL (65-110); Magnesium 2.1 mg/dL (1.6-2.3); Potassium 4.1 mmol/L (3.4-5.0); Sodium 133 mmol/L (137-145)
--- NOTE | 2022-06-01 08:08 | WPDGIPROGNO ---
Progress Note: A&P Assessment and Plan (1) Ulcerative colitis: Code(s): K51.90 - Ulcerative colitis, unspecified, without complications Status: Acute Assessment and Plan: feeling better with medical management, abx and oral mesalamine (stool negative for infection) HBV/TB status pending she can go home today with slow prednisone taper (40 mg daily to decrease 5 mg every week) and follow-up office in 2-3 weeks, I think she will need to be on biologics (entyvio, stelara, anti-tnf, etc) because recurrent flares she was supposed to have a colonoscopy last Thursday but postponed until flare up resolved (2) JOVANA (acute kidney injury): Code(s): N17.9 - Acute kidney failure, unspecified Status: Acute Assessment and Plan: improving (3) Leukocytosis: Code(s): D72.829 - Elevated white blood cell count, unspecified Status: Acute Assessment and Plan: monitor Subjective Date/time seen: 06/01/22 08:08 Interval history: doing great, soft stools and good appetite. She is looking forward to going home today Review of Systems Review of Systems: All systems reviewed & are unremarkable except as noted in HPI and below Exam Const: General: comfortable and no acute distress HENMT: General nose exam: Normal nares present Eyes: General: appearance normal, both eyes and all related structures Neck: Neck: no JVD Resp: Auscultation: clear to auscultation bilaterally Cardio: Rate: regular rate Rhythm: regular rhythm GI: Inspection: non-distended GI Palp: Yes Soft to palpation Skin: General skin exam: normal color Neuro: General: gait normal Speech: normal speech Extrem: General: normal to inspection Psych: Mental Status: mental status grossly normal Objective Data Vital Signs Vital Signs: Vital Signs - 24 hr 05/31/22 08:20 05/31/22 14:00 05/31/22 17:11 Temperature 97.0 F L Pulse Rate 78 79 84 Respiratory Rate 18 Blood Pressure 122/61 Pulse Oximetry 95 Oxygen Delivery 05/31/22 19:45 05/31/22 21:35 05/31/22 20:30 Temperature 98.3 F Pulse Rate 84 68 Respiratory Rate 18 18 Blood Pressure 127/67 Pulse Oximetry 95 97 96 Oxygen Delivery Room Air Room Air 06/01/22 05:16 Temperature 97.9 F Pulse Rate 67 Respiratory Rate 18 Blood Pressure 134/62 Pulse Oximetry 98 Oxygen Delivery Intake/Output Intake/Output: Intake & Output 05/29/22 05/30/22 05/31/22 06/01/22 23:59 23:59 23:59 23:59 Intake Total 5140 4480 3720 1550 Output Total 2300 1200 300 Balance 5140 2180 2520 1250 Meds/Results Medications: Active Medications Generic Name Dose Route Start Last Admin Trade Name Freq PRN Reason Stop Dose Admin Cyanocobalamin 1,000 mcg 05/29/22 09:00 05/31/22 08:20 Cyanocobalamin 1,000 Mcg Tablet PO 1,000 mcg DAILY JAYESH Administration Duloxetine HCl 60 mg 05/29/22 09:00 05/31/22 08:20 Duloxetine Hcl 60 Mg Capsule.Dr PO 60 mg QAM JAYESH Administration Hydrocortisone 1 applic 05/28/22 17:41 05/29/22 08:20 Hydrocortisone 2.5% Cream 30 Gm Tube RECTAL 1 applic BID PRN Administration Hemorrhoids Hydromorphone HCl 0.5 mg 05/29/22 09:01 05/29/22 09:30 Hydromorphone Hcl Inj (*Crx) 1 Mg/Ml Syr IV PUSH 0.5 mg Q3H PRN Administration Pain Rated 7-10 Hyoscyamine 0.375 mg 05/28/22 17:31 05/31/22 10:11 Hyoscyamine Sulfate 0.375 Mg Tab.Er.12h PO 0.375 mg Q12H PRN Administration abdominal discomfort Ceftriaxone Sodium/Dextrose 1 gm in 50 mls @ 100 mls/hr 05/29/22 12:00 05/31/22 12:30 Rocephin 1 Gm/D5w 50 Ml IVPB Infused NOON JAYESH Infusion Metronidazole 500 mg in 100 mls @ 100 mls/hr 05/28/22 22:00 06/01/22 05:06 Flagyl 500 Mg/Iso Soln 100 Ml IVPB 100 mls/hr Q8HR JAYESH Administration Lactated Ringer's 1,000 mls @ 125 mls/hr 05/28/22 12:00 06/01/22 04:33 Lr - Lactated Ringers Iv IV CONT 125 mls/hr .Q8H JAYESH Administration Magnesium Gluconate 27 m
[2022-06-01] MEDS: MESALAMINE 400 MG DELAYED RELEASE CAPSULE 1200 MG PO (08:14)
[2022-06-01 08:15] VITALS: PULSE 74
[2022-06-01] MEDS: METOPROLOL TARTRATE 50 MG TAB PO (08:15)
[2022-06-01] MEDS: CYANOCOBALAMIN 1,000 MCG TABLET 1000 MCG PO (08:16)
[2022-06-01] MEDS: DULoxetine HCL 60 MG CAPSULE.DR PO (08:16)
[2022-06-01] MEDS: MULTIVITAMINS THERAPEUTIC TAB (*BKC) 1 TABLET PO (08:16)
--- NOTE | 2022-06-01 09:18 | P.DS_ITS ---
DS: Admitting Diagnosis Discharge Date 06/01/2022 Admitting Diagnosis GI bleed DS: Discharge Diagnosis Discharge Diagnosis (1) Ulcerative colitis: Code(s): K51.90 - Ulcerative colitis, unspecified, without complications Status: Acute Assessment and Plan: patient is a 76-year-old female with history of ulcerative colitis presented with complaint abdominal pain nausea or vomiting mucousy bloody diarrhea most likely patient has flare up ulcer to colitis patient started on Rocephin and Flagyl, will continue hyoscyamine and Mesalamine, for pain control will started on morphine, patient be seen by GI and further recommendation to follow. 05/29/2022 interval history: patient is a 76-year-old female with history of ulcerative colitis presented with complaint abdominal pain nausea, vomiting and mucousy bloody diarrhea most likely patient has flare up ulcer to colitis patient started on Rocephin and Flagyl, will continue hyoscyamine and Mesalamine, for pain control patient was started on morphine, however patient blood pressure is soft 2/2 hypovolemia as patient has po intake, patient was given NS 500cc bolus and will continue IVF 125cc/hr, remains clinically patient will be seen by GI and further recommendation to follow. 05/30/2022 interval history: patient is a 76-year-old female with history of ulcerative colitis presented with complaint abdominal pain nausea, vomiting and mucousy bloody diarrhea most likely patient has flare up ulcerative colitis patient started on Rocephin and Flagyl, will continue hyoscyamine and Mesalamine, patient was seen by GI and added a steroid recommend stool culture to rule out infection, for pain control patient was started on morphine, however patient blood pressure is soft 2/2 hypovolemia as patient has poor po intake, patient was given NS 500cc bolus and will continue IVF 125cc/hr, remains clinically stable, today patient states the pain is controlled and overall feeling much better will have a PT OT evaluate the patient and further recommendation to follow. 05/31/2022 interval history: patient is a 76-year-old female with history of ulcerative colitis presented with complaint abdominal pain nausea, vomiting and mucousy bloody diarrhea most likely patient has flare up ulcerative colitis patient was started on Rocephin and Flagyl, continued hyoscyamine and Mesalamine, patient was seen by GI and added a steroid methylprednisone 40 mg Q8, recommend stool culture to rule out infection so far no growth, for pain control patient was started on morphine, however patient blood pressure was soft 2/2 hypovolemia as patient has poor po intake, patient was given NS 500cc bolus and will continue IVF 125cc/hr, remains clinically stable, today patient states the pain pain is getting worse see had a couple of bowel movement last night and does not feel very well, will continue to monitor patient be seen by GI and further recommendation to follow, will have a PT OT to evaluate the patient and further recommendation to follow. (2) JOVANA (acute kidney injury): Code(s): N17.9 - Acute kidney failure, unspecified Status: Acute Assessment and Plan: most likely secondary to dehydration due to poor p.o. intake will gently hydrate the patient and monitor (3) Major depressive disorder, recurrent, mild: Code(s): F33.0 - Major depressive disorder, recurrent, mild Status: Chronic Assessment and Plan: most likely reactive secondary to chronic medical problems will resume home medication and monitor (4) Leukocytosis: Qualifiers: Leukocytosis type: unspecified Qualified Code(s): D72.829 - Elevated white blood maddie
[2022-06-03 12:56] LABS: NIL 0.02 IU/mL; Quantiferon TB Plus, 1T INDETERMINATE (NEGATIVE); TB1-NIL <0.00 IU/mL; TB2-NIL <0.00 IU/mL
[2022-06-04 03:21] LABS: Hepatitis B Core Ab Total Nonreactive (Nonreactive)
[2022-06-06 12:40] LABS: TPMT Activity 18
== END 2022-06-01 10:53 | disposition home or self-care (01) | DRG 386 ==
LOC: ANHED 12:09 → ANH3MEDSUR 05-29 09:32
PROVIDERS: Internal Medicine Gastroenterology; Admitting Provider Internal Medicine; Emergency Provider Emergency Medicine; PCP Family Medicine Adolescent Medicine; Visit Provider Family Medicine
DX: K51.90 Ulcerative colitis, unspecified, without complications (principal); N17.9 Acute kidney failure, unspecified; F33.0 Major depressive disorder, recurrent, mild; E86.0 Dehydration; D72.829 Elevated white blood cell count, unspecified; D64.9 Anemia, unspecified; M19.90 Unspecified osteoarthritis, unspecified site; N32.81 Overactive bladder; L40.9 Psoriasis, unspecified; Z96.653 Presence of artificial knee joint, bilateral; Z87.891 Personal history of nicotine dependence
CPT/HCPCS: 36415; 74176; 80048; 80053; 82657; 83735; 85025; 85027; 85610; 85730; 86480; 86704; 86706; 86850; 86900; 86901; 87045; 87340; 87427; 87493; 96361; 96365; 96366; 96367; 96375; 99285; A9270; C9113; G0378; J0131; J0696; J1170; J2270; J2405; J2920; J7030; J7040; J7120

== ENCOUNTER 2022-06-03 15:55 | Outpatient (CLI) | payer MEDICARE, OTHER, SELFPAY ==
--- NOTE | ~2022-06-03 | XR_ITS ---
XR chest 2V 06/03/2022 16:32 Indication: Nonspecific reaction to cell mediated community. Procedure: PA and lateral views of the chest Comparison: 12/01/2020 and 10/16/2015 Findings: There are left lower lobe infiltrates, most likely atelectasis. Small left pleural effusion . Heart size normal. No edema or pneumothorax. No acute osseous abnormality. Impression: 1: Small left pleural effusion. 2: Left lower lobe infiltrates, most likely atelectasis. Reviewed, dictated and finalized at location A. Impression: 1: Small left pleural effusion. 2: Left lower lobe infiltrates, most likely atelectasis.
== END 2022-06-03 15:56 | disposition home or self-care (01) ==
PROVIDERS: PCP Family Medicine Adolescent Medicine; Visit Provider Nurse Practitioner
DX: R76.12 Nonspecific reaction to cell mediated immunity measurement of gamma interferon antigen response without active tuberculosis (principal); Z79.899 Other long term (current) drug therapy; J90 Pleural effusion, not elsewhere classified; R91.8 Other nonspecific abnormal finding of lung field
CPT/HCPCS: 71046

== ENCOUNTER 2022-06-24 14:06 | Outpatient (CLI) | payer MEDICARE, OTHER, SELFPAY ==
--- NOTE | ~2022-06-24 | XR_ITS ---
EXAMINATION: XR chest 2V Exam Date/Time: 06/24/2022 14:20 CDT HISTORY: J98.11 - Atelectasis PT STATES PREOP FU Comparison: 06/03/2022. RESULT: Lines, tubes, and devices: None. Lungs and pleura: Clear. Cardiomediastinal silhouette: Stable. Other: No acute osseous or upper abdominal finding. IMPRESSION: No acute cardiopulmonary process. Reviewed, dictated and finalized at location K.
== END 2022-06-24 14:07 | disposition home or self-care (01) ==
PROVIDERS: PCP Family Medicine Adolescent Medicine; Visit Provider Physician Assistant
DX: J98.11 Atelectasis (principal)
CPT/HCPCS: 71046

== ENCOUNTER 2023-04-13 04:12 | Day surgery (SDC) | payer MEDICARE, OTHER, SELFPAY ==
[2023-03-31 11:54] VITALS: BMI 31.4
[2023-04-13 06:24] VITALS: BP 117/59; PULSE 70; RESP 18; TEMP 36.3; O2SAT 99; BMI 31.6
[2023-04-13] MEDS: LACTATED RINGERS 1,000 ML 150 ML IV CONT (06:36)
--- NOTE | 2023-04-13 07:24 | WPDANESEPPF ---
Anes - Initial Pre Proc Eval Procedure: Operation Date: 04/13/23 07:30 Proposed Procedures p Colonoscopy - Solitario Crockett MD s [facility] Hemorrhoid Treatment - Solitario Crockett MD Date/Time: 04/13/23 07:24 Surgeon: Solitario Crockett MD Pre Op Diagnosis: Ulcerative Colitis, Hemorrhoids Patient Data Age: 77 Gender: F Height: 1.68 m Weight: 88.8 kg Last Vital Signs Temp 97.3 F L 04/13/23 06:24 Pulse 70 04/13/23 06:24 Resp 18 04/13/23 06:24 BP 117/59 L 04/13/23 06:24 Pulse Ox 99 04/13/23 06:24 O2 Del Method Room Air 04/13/23 06:24 Allergies Allergy/AdvReac Type Severity Reaction Status Date / Time No Known Allergies Allergy Verified 04/13/23 06:22 Home Medications Medication Instructions Recorded Confirmed Type multivitamin 1 tablet PO DAILY 01/15/21 04/13/23 History hydrocortisone 2.5 % topical cream 1 applic RECTAL BID PRN Hemorrhoids 04/22/22 04/13/23 History with perineal applicator duloxetine 60 mg capsule,delayed 60 mg PO QAM #90 caps 11/06/22 04/13/23 Rx release mesalamine 400 mg capsule (with See Rx Instructions .Route 11/26/22 04/13/23 Rx delayed release tablets inside) .COMPLEX #180 caps metoprolol tartrate 50 mg tablet 50 mg PO BID #180 tabs 03/10/23 04/13/23 Rx spironolactone 100 mg tablet 100 mg PO DAILY 03/26/23 04/13/23 History celecoxib 200 mg capsule 200 mg PO DAILY 03/31/23 04/13/23 History Patient hx anesthesia problems: none Family hx anesthesia problems: none Results Review: All pre-operative results and documents have been reviewed as part of the pre-operative evaluation. [facility] Past Medical History Medical History (Updated 03/26/23 @ 09:53 by Solitario Crockett MD) Abdominal cramping Anemia Arthritis Arthritis of knee, right Chronic UTI Colitis DDD (degenerative disc disease) Depression Family hx total abdominal hysterectomy/bilateral salpingo-oophorectomy (~2008) High risk medication use Hypertension Leukocytosis Major depressive disorder, recurrent, mild Mixed hyperlipidemia Overactive bladder Positive QuantiFERON-TB Gold test Psoriasis Rectal itching Sepsis Sinusitis Suspected 2018-nCoV infection Ulcerative colitis Ulcerative colitis Surgical History Surgical History H/O: hysterectomy History of laminectomy History of left knee replacement 12/19/2011 History of right knee joint replacement surgery April 22, 2021 Hx of bladder repair surgery (~2008) Hx of total knee arthroplasty Family History Family History Mother Leukemia Father Heart attack Depression Sibling Heart abnormality Social History Social History Smoking packs per day: 1 Smoking cigarettes per day: 20.0 Years smoked: 25 Smoking pack-years: 25.00 Smoking status: Former smoker Tobacco type: cigarettes Second hand tobacco smoke exposure: No Smoking end date: 04/11/09 Alcohol intake: never Substance use: never Substance use type: does not use Living arrangements: with family Additional living arrangements comments: [facility] Occupation/Education: retired Gender identity (if verbalized by the patient): Female Spiritual care concerns: No Agree to blood products: Yes Anes - Eval Final PreProcedure Day of Procedure 04/13/23 07:24 Patient weight: obese Heart: regular rate and rhythm Lungs: clear to auscultation Airway: Mallampati scale class II Neurological: alert and oriented Last oral intake: >/= 8 hours ASA classification: III Emergent: no Anesthetic plan: proceed Anesthesia type and monitoring: general GIVS and standard monitoring Results Review: All pre-operative results and documents have been reviewed as part of the pre-operative evaluation. Informed Consent: The patient's anesthetic plan
--- NOTE | 2023-04-13 07:27 | WPDHPUPDATE1 ---
History and Physical Update Update Date/Time: 04/13/23 07:27 History and Physical has been reviewed, including an updated exam of the patient. There are NO changes in the patient's condition. Risks, benefits, and alternatives have been discussed and questions answered. Patient agrees to proceed with procedure.
[2023-04-13 07:48] VITALS: BP 88/49; PULSE 68; RESP 25; O2SAT 95
--- NOTE | 2023-04-13 08:00 | W.PM.PROC2 ---
Procedure Note - Detailed Date of Procedure 04/13/23 Pre-op Diagnosis Ulcerative Colitis, Hemorrhoids Post-op Diagnosis Same Procedure Performed IRC of internal hemorrhoids Surgeon Solitario Crockett MD Anesthesia MAC (also had colonoscopy) Description of Procedure found irais II internal hemorrhoids with anoscopy, no fissure, no bleeding. Then introduced IRC probe and hemorrhoids treated at 1.5 seconds x6
[2023-04-13 08:07] VITALS: BP 104/57; PULSE 64; RESP 23; O2SAT 100
[2023-04-13 08:08] VITALS: BP 117/56; PULSE 63; RESP 15; O2SAT 100
== END 2023-04-13 08:22 | disposition home or self-care (01) ==
PROVIDERS: PCP Family Medicine Adolescent Medicine; Visit Provider Internal Medicine Gastroenterology
PROC: 0DJD8ZZ Inspection of Lower Intestinal Tract, Via Natural or Artificial Opening Endoscopic (ICD-10-PCS; CPT 45378; principal; 2023-04-13 07:30)
PROC: (CPT 46930; 2023-04-13 07:30)
DX: K51.90 Ulcerative colitis, unspecified, without complications (principal); K64.1 Second degree hemorrhoids; K57.30 Diverticulosis of large intestine without perforation or abscess without bleeding; K63.5 Polyp of colon; I10 Essential (primary) hypertension; F33.0 Major depressive disorder, recurrent, mild; E78.2 Mixed hyperlipidemia; L40.9 Psoriasis, unspecified; Z87.891 Personal history of nicotine dependence; E66.9 Obesity, unspecified; Z68.31 Body mass index [BMI] 31.0-31.9, adult
CPT/HCPCS: 46930; 45380; 88305; J2704; J7120

== ENCOUNTER 2023-07-15 12:43 | Outpatient (CLI) | payer MEDICARE, OTHER, SELFPAY ==
[2023-07-22 21:47] LABS: Calprotectin, Stool 253 mcg/g
== END 2023-07-15 12:44 | disposition home or self-care (01) ==
PROVIDERS: PCP Family Medicine Adolescent Medicine; Visit Provider Internal Medicine Gastroenterology
DX: K51.90 Ulcerative colitis, unspecified, without complications (principal)
CPT/HCPCS: 83993

== ENCOUNTER 2023-07-29 14:43 | Outpatient (CLI) | payer MEDICARE, OTHER, SELFPAY ==
--- NOTE | 2023-07-29 14:56 | ECG_ITS ---
Measurements Intervals [place] Rate: 76 P: 50 FL: 198 QRS: -19 QRSD: 75 T: 53 QT: 383 QTc: 431 Interpretive Statements SINUS RHYTHM LOW QRS VOLTAGE IN PRECORDIAL LEADS [QRS DEFLECTION < 1.0 mV IN CHEST LEADS] BASELINE ARTIFACT ABNORMAL ECG COMPARED TO ECG 04/09/2021 10:38:54 NO SIGNIFICANT CHANGES Electronically Signed On 07-29-2023 18:37:07 CDT by Marcial Taylor M.D.
[2023-07-29 15:52] LABS: Prothrombin Time 13.3 Seconds (11.1-14.7)
[2023-07-29 15:53] LABS: Partial Thromboplastin Time 28.4 SECONDS (22.3-36.8)
[2023-07-29 15:56] LABS: Anion Gap 9 mmol/L (8-16); Blood Urea Nitrogen 43 mg/dL (7-17); Calcium 9.2 mg/dL (8.4-10.2); Carbon Dioxide 25 mmol/L (22-30); Chloride 104 mmol/L (98-107); Estimated Glomerular Filt Rate 40; Glucose 110 mg/dL (65-110); Potassium 4.4 mmol/L (3.4-5.0); Sodium 138 mmol/L (137-145)
== END 2023-07-29 14:44 | disposition home or self-care (01) ==
LOC: ANHSURGERY 14:48
PROVIDERS: Anesthesiology; PCP Family Medicine Adolescent Medicine; Visit Provider Surgery
DX: E78.2 Mixed hyperlipidemia (principal); N18.31 Chronic kidney disease, stage 3a; Z01.818 Encounter for other preprocedural examination
CPT/HCPCS: 36415; 80048; 85610; 85730; 93005

== ENCOUNTER 2023-08-03 03:08 | Day surgery (SDC) | payer MEDICARE, OTHER, SELFPAY ==
[2023-07-24 15:34] VITALS: BMI 30.7
--- NOTE | 2023-07-24 15:49 | PC.NURSE ---
PRE-OP INSTRUCTIONS, PLEASE READ CAREFULLY Report to the Outpatient Waiting Room, entrance under the green pavilion located off [facility], at time _0600__ on date _08/03/23_. Planned Procedure Time: _0730__. Time changes happen often and if your time is changed the preop area will call you the afternoon before. - You and your visitor will be asked to self-screen and do not enter if you have any COVID symptoms. - A mask is optional within the hospital at this time. Patients may have clear liquids (water, carbonated beverages, clear teas, apple juice) until 3 hours prior to surgery (0430 AM) with a maximum of 20 ounces. - No food from midnight until time of surgery Take the following medications with a SIP of water the morning of surgery: _DULOXETINE, METOPROLOL_ DO NOT STOP ANY OF YOUR OTHER PRESCRIPTION MEDICATIONS PRIOR TO SURGERY ?EXCEPT THE FOLLOWING Medications to discontinue _CELECOXIB PER DR. STEPHENS - CALL OFFICE FOR INSTRUCTIONS__ Medications to discontinue per ANESTHESIA - _MULTIVITAMIN 3 DAYS PRIOR TO SURGERY, Date to take last dose 07/30/23_ Please no make-up, nail ukrainian, hairspray, perfume, deodorant, or body powder the day of surgery. No jewelry (including any body piercings) or valuables the day of surgery, leave them at home. Please take a shower or bath the night before, or the morning of, surgery with an antibacterial soap. Wear comfortable, loose fitting clothing. - Jewelry must be removed prior to entering the operating room. Rings and piercings that are not removed may be cut off. - The hospital will not accept responsibility for valuables. - Please leave all valuables, including medications, at home the day of surgery. If you are going home after surgery, a licensed dinkey driver must drive you home. - NO public transportation without another adult if you receive anesthesia. - We recommend that an adult stay with you for 24 hours following discharge. - We also recommend that you do not drive, make important decision, drink alcoholic beverages, or take any drugs that were not prescribed by your health care provider for at least 24 hours after your discharge time. Follow any additional instructions given to you from your surgeon. If you or anyone in your household have experienced Covid symptoms in the past week, please notify your surgeon or the nurse liaison at the phone number below for possible testing. Telephone instructions given to _PATIENT_and asked if any additional questions and then verbalized understanding. Patient advised to call surgeon office or pre surgery nurse liaison [phone] if any additional questions.
[2023-08-03] VITALS (13 sets, daily range): BP systolic 107–142; BP diastolic 43–75; PULSE 69–102; RESP 12–20; TEMP 36.1; O2SAT 93–100
[2023-08-03] MEDS: ACETAMINOPHEN 500 MG TABLET 1000 MG PO (07:27)
[2023-08-03] MEDS: KETOROLAC 15 MG/ML VIAL (*BKC) IV PUSH (07:28)
--- NOTE | 2023-08-03 07:48 | WPDANESEPPF ---
Anes - Initial Pre Proc Eval Procedure: Operation Date: 08/03/23 09:00 Proposed Procedures p Excisional Hemorrhoidectomy - Michi Salas MD Date/Time: 08/03/23 07:48 Surgeon: Michi Salas MD Pre Op Diagnosis: grade3 internal/external hemorrhoids Patient Data Age: 77 Gender: F Height: 1.68 m Weight: 89.2 kg Allergies Allergy/AdvReac Type Severity Reaction Status Date / Time No Known Allergies Allergy Verified 08/03/23 07:40 Home Medications Medication Instructions Recorded Confirmed Type multivitamin 1 tablet PO DAILY 01/15/21 08/03/23 History hydrocortisone 2.5 % topical cream 1 applic RECTAL BID PRN Hemorrhoids 04/22/22 08/03/23 History with perineal applicator metoprolol tartrate 50 mg tablet 50 mg PO BID #180 tabs 03/10/23 08/03/23 Rx spironolactone 100 mg tablet 100 mg PO DAILY 03/26/23 08/03/23 History celecoxib 200 mg capsule 200 mg PO DAILY #90 caps 04/26/23 08/03/23 Rx duloxetine 60 mg capsule,delayed 60 mg PO QAM #90 caps 05/05/23 08/03/23 Rx release atorvastatin 20 mg tablet 20 mg PO DAILY #30 tabs 05/27/23 08/03/23 Rx vedolizumab 300 mg intravenous 300 mg IV .every 8 weeks 07/07/23 08/03/23 History solution (Entyvio) nitrofurantoin macrocrystal 50 mg 50 mg PO HS 07/24/23 08/03/23 History capsule Patient hx anesthesia problems: none Family hx anesthesia problems: none Results Review: All pre-operative results and documents have been reviewed as part of the pre-operative evaluation. 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 Psoriasis Rectal itching Sepsis Skin lesion of left leg Skin lesion of right lower extremity Ulcerative colitis (2020) Surgical History Surgical History History of arthroscopy of left knee (2017) History of hysterectomy with bilateral oophorectomy (2008) History of laminectomy History of left knee replacement (2011) 12/19/2011 History of right knee joint replacement (04/2021) surgery April 22, 2021 Hx of bladder repair surgery (~2008) Family History Family History Mother Leukemia Father Heart attack Depression Sibling Heart abnormality Social History Social History Smoking packs per day: 1 Smoking cigarettes per day: 20.0 Years smoked: 25 Smoking pack-years: 25.00 Smoking status: Former smoker Tobacco type: cigarettes Second hand tobacco smoke exposure: No Smoking end date: 10/12/08 Alcohol intake: never Substance use: never Substance use type: does not use Lack of Transportation: No Lack of Food: Never True Current Housing: I Have Housing Concerned About Future Housing: No Difficulty Paying Gas/Electric Bills: No Difficulty Paying for Meds: No Currently Unemployed: No Education: Bachelor's Degree Difficulty w/ Childcare or Family Care: No Living arrangements: with family Additional living arrangements comments: [facility] Occupation/Education: retired Gender identity (if verbalized by the patient): Female Spiritual care concerns: No Agree to blood products: Yes Anes - Eval Final PreProcedure Day of Procedure 08/03/23 07:48 Patient weight: obese Heart: regular rate and rhythm Lungs: clear to auscultation Airway: Mallampati scale class II Neurological: alert and oriented Last oral intake: >/= 8 hours ASA classification: III Emergent: no Anesthetic plan: pr
--- NOTE | 2023-08-03 08:48 | PM.IMHP ---
H&P: HPI History of Present Illness Date/Time: 08/03/23 08:48 Chief Complaint: Symptomatic hemorrhoids Narrative: Daphne is a 77 y/o female who presents with a protruding and painful hemorrhoids at the request of Dr. Alva. She states she was diagnosed with ulcerative colitis in 2020 which is when her hemorrhoid symptoms started. This is currently treated with infusions every other month which is managed by Dr. Adams. Patient reports having a colonoscopy in March by Dr. Adams and hemorrhoids were frozen . She states this did not help with her hemorrhoid symptoms. She has occasional bleeding but mostly notices the protrusion, itching and pain. She has been applying Preparation H and witch kristi pads with mild relief. Review of Systems Review of Systems: The remainder of the review of systems to include constitutional, HEENT, cardiovascular, respiratory, GI, , integumentary, musculoskeletal, endocrine, immunologic, hematologic, psychiatric, and neurologic are all negative except for which is mentioned above in the HPI. 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 Psoriasis Rectal itching Sepsis Skin lesion of left leg Skin lesion of right lower extremity Ulcerative colitis (2020) Surgical History Surgical History History of arthroscopy of left knee (2017) History of hysterectomy with bilateral oophorectomy (2008) History of laminectomy History of left knee replacement (2011) 12/19/2011 History of right knee joint replacement (04/2021) surgery April 22, 2021 Hx of bladder repair surgery (~2008) Family History Family History Mother Leukemia Father Heart attack Depression Sibling Heart abnormality Social History Social History Smoking packs per day: 1 Smoking cigarettes per day: 20.0 Years smoked: 25 Smoking pack-years: 25.00 Smoking status: Former smoker Tobacco type: cigarettes Second hand tobacco smoke exposure: No Smoking end date: 10/12/08 Alcohol intake: never Substance use: never Substance use type: does not use Lack of Transportation: No Lack of Food: Never True Current Housing: I Have Housing Concerned About Future Housing: No Difficulty Paying Gas/Electric Bills: No Difficulty Paying for Meds: No Currently Unemployed: No Education: Bachelor's Degree Difficulty w/ Childcare or Family Care: No Living arrangements: with family Additional living arrangements comments: [facility] Occupation/Education: retired Gender identity (if verbalized by the patient): Female Spiritual care concerns: No Agree to blood products: Yes Meds Home Medications and Allergies Home Medications Medication Instructions Recorded Confirmed Type multivitamin 1 tablet PO DAILY 01/15/21 08/03/23 History hydrocortisone 2.5 % topical cream 1 applic RECTAL BID PRN Hemorrhoids 04/22/22 08/03/23 History with perineal applicator metoprolol tartrate 50 mg tablet 50 mg PO BID #180 tabs 03/10/23 08/03/23 Rx spironolactone 100 mg tablet 100 mg PO DAILY 03/26/23 08/03/23 History celecoxib 200 mg capsule 200 mg PO DAILY #90 caps 04/26/23 08/03/23 Rx duloxetine 60 mg capsule,delayed 60 mg PO QAM #90 caps 05/05/23 08/03/23 Rx release atorvastatin 20 mg tablet 20 mg PO DAILY #30 tabs 05/27/23 08/03/23 Rx vedolizumab 300 mg intravenous 300 mg IV .every 8 weeks 07/07/23 08/03/23 [place]
--- NOTE | 2023-08-03 08:51 | WPDHPUPDATE1 ---
History and Physical Update Update Date/Time: 08/03/23 08:51 History and Physical has been reviewed, including an updated exam of the patient. There are NO changes in the patient's condition. Risks, benefits, and alternatives have been discussed and questions answered. Patient agrees to proceed with procedure.
[2023-08-03] MEDS: ceFAZolin 2 GM/D5W 50 ML 2 GM/50 ML BAG IVPB (09:00)
[2023-08-03] MEDS: LIDO 1%/EPINEPHRINE 1:100,000 50 ML VIAL 20 ML INFILTRATE (09:26)
[2023-08-03] MEDS: LACTATED RINGERS 1,000 ML 30 ML IV CONT ×2 (10:39)
--- NOTE | 2023-08-03 11:05 | W.PM.PROC2 ---
Procedure Note - Detailed Date of Procedure 08/03/23 Pre-op Diagnosis grade3 internal/external hemorrhoids Post-op Diagnosis Same Procedure Performed Excisional hemorrhoidectomy x3 Surgeon Michi Salas MD Mobile Application Engineer MARQUIS Garcia Anesthesia General Indications Patient is a 69-year-old female who has been having rather frequent and intermittent bleeding from some internal hemorrhoids. She had a colonoscopy showing the hemorrhoids were the cause of the bleeding. She presents now for excisional hemorrhoidectomy. Findings Three large internal hemorrhoids were noted at the 1 o'clock, 5 o'clock, and 10 o'clock positions. No masses were seen in the anal canal or distal rectum. Description of Procedure After informed consent was obtained patient brought to the operating room where she was placed under general endotracheal anesthesia on the gurney and then turned onto the prone yannick-knife position on the operating table. The buttocks were then taped apart to expose the perianal region. The area was then prepped draped usual sterile fashion. A time-out was then performed correctly identifying the patient as well as procedure to be performed. She was given perioperative IV antibiotics. I then proceeded to gently dilate the anal sphincters with a lubricated anal speculum. I then performed a circumferential evaluation later canal and there were 3 large hemorrhoids located at the 1 o'clock, 5 o'clock, and 10 o'clock positions. No anal canal masses or distal rectal masses were seen. I then proceeded to excise out the hemorrhoids all in very similar fashion. The 1st MRI addressed was at the 1 o'clock position. An Allis clamp was placed on the hemorrhoid and a 2-0 chromic suture was placed at the apex of the hemorrhoid. A scalp was then used to incise the tissue on either side of the hemorrhoid tissue in a sofie configuration extending all the way out to the perianal skin. I then utilized electrocautery dissection to excise out the hemorrhoid. I identified the internal external sphincter muscles and preserved these without injury throughout the excision. Once the tissue was excised was sent to pathology labeled as internal hemorrhoid 1 o'clock. The loosely placed 2-0 chromic suture was then run in a locking fashion to approximate the edges of the tissue and closed the incision. Once I reached to the anal verge I would transition to using 3-0 Vicryl suture to approximate the skin edges. The other hemorrhoids at the 5 o'clock and the 10 o'clock positions or excised out in a similar fashion. Both of these hemorrhoids were also sent to pathology labeled with there respective positions. I then irrigated out the anal canal with sterile saline solution. The blood clot was removed from the anal canal. I checked and there was no significant stenosis of the anal canal after excision of all 3 the hemorrhoids. I then injected 1% lidocaine mixed with 0.5% Marcaine around the anal verge for perianal block. I also injected the local anesthetic mixture for bilateral pudendal nerve block. The area was then cleaned and then a Gelfoam packing soaked in 1% lidocaine jelly was placed into the anal canal. There was then dressed with 4x4 gauze, ABD pad and disposable underwear. The patient tolerated the procedure well no complications. All sponges, needles, and instrument counts were correct at the end procedure. EBL was _50__cc. The patient was awakened and taken to recovery in stable and satisfactory condition. Implants None Estimated Blood Loss -50.0 Drains No Packing Yes (Gelfoam packing in the anal canal) Pathology Yes (Internal hemorrhoids x3 to pathology) Complications No immediate complications Condition Stable Disposition PACU [facility] Billing Surgery - Charge Forward: Surgery Billing
== END 2023-08-03 14:35 | disposition home or self-care (01) ==
PROVIDERS: PCP Family Medicine Adolescent Medicine; Visit Provider Surgery
PROC: (CPT 46260; principal; 2023-08-03 09:00)
DX: K64.2 Third degree hemorrhoids (principal); D64.9 Anemia, unspecified; I10 Essential (primary) hypertension; F33.0 Major depressive disorder, recurrent, mild; E78.2 Mixed hyperlipidemia; Z87.891 Personal history of nicotine dependence; E66.9 Obesity, unspecified; Z68.31 Body mass index [BMI] 31.0-31.9, adult
CPT/HCPCS: 46260; 36415; 80048; 85610; 85730; 88304; 93005; A9270; J0690; J1100; J1885; J2405; J2704; J3010; J7120

== ENCOUNTER 2024-01-14 09:12 | Outpatient (CLI) | payer MEDICARE, OTHER, SELFPAY ==
[2024-01-14 09:48] LABS: Hematocrit 37.4 % (37.0-47.0); Hemoglobin 11.8 g/dL (12.0-15.0); Mean Corpuscular HGB Conc 31.6 g/dl (32-36); Mean Corpuscular Volume 91.9 fl (80-100); Mean Platelet Volume 9.2 fl (7.4-10.4); Platelet Count Result 268 k/mm3 (150-375); Red Blood Count 4.07 M/mm3 (4.2-5.4); Red Cell Distribution Width 13.3 % (11.5-14.5); White Blood Count 6.7 K/mm3 (4.5-10.0)
[2024-01-14 10:03] LABS: Alanine Aminotransferase 18 U/L (6-35); Albumin Level 4.2 g/dL (3.5-5.1); Alkaline Phosphatase 97 U/L (38-126); Anion Gap 6 mmol/L (4-12); Aspartate Amino Transferase 22 U/L (14-36); Bilirubin,Total 0.5 mg/dL (0.2-1.3); Blood Urea Nitrogen 35 mg/dL (7-17); CRP < 0.5 mg/dL (<1.0); Calcium 9.7 mg/dL (8.4-10.2); Carbon Dioxide 26 mmol/L (22-30); Chloride 108 mmol/L (98-107); Estimated Glomerular Filt Rate 31; Glucose 102 mg/dL (65-110); Potassium 4.6 mmol/L (3.4-5.0); Sodium 140 mmol/L (137-145)
== END 2024-01-14 09:13 | disposition home or self-care (01) ==
PROVIDERS: PCP Family Medicine Adolescent Medicine; Visit Provider Nurse Practitioner
DX: K51.90 Ulcerative colitis, unspecified, without complications (principal)
CPT/HCPCS: 36415; 80053; 85027; 86140

== ENCOUNTER 2024-03-21 16:30 | Outpatient (CLI) | payer MEDICARE, OTHER, SELFPAY ==
--- NOTE | ~2024-03-21 | US_ITS ---
Renal-Bladder ultrasound Clinical History: Chronic kidney disease Technique: Real-time sonographic imaging of the kidneys and urinary bladder was performed. Findings: The right kidney measures 10.8 cm in length and the left kidney measures 9.9 cm. There is n o hydronephrosis or renal calculus identified. Renal cortical echogenicity is within normal limits. N o renal mass lesion is identified. The urinary bladder is moderately distended at the time of this exam. No intraluminal echoes are iden tified. No abnormal wall thickening is seen. Distended gallbladder with multiple small gallstones incidentally noted. No definite gallbladder wall thickening. Impression: Unremarkable ultrasound of the kidneys and urinary bladder. Cholelithiasis incidentally noted. Reviewed, dictated and finalized at [facility]. Impression: Unremarkable ultrasound of the kidneys and urinary bladder. Cholelithiasis incidentally noted.
== END 2024-03-21 16:31 | disposition home or self-care (01) ==
LOC: ANHIMG 16:31
PROVIDERS: PCP Family Medicine Adolescent Medicine; Visit Provider Internal Medicine Nephrology
DX: I12.9 Hypertensive chronic kidney disease with stage 1 through stage 4 chronic kidney disease, or unspecified chronic kidney disease (principal); N18.32 Chronic kidney disease, stage 3b; K80.20 Calculus of gallbladder without cholecystitis without obstruction
CPT/HCPCS: 76775

== ENCOUNTER 2024-03-22 11:19 | Outpatient (CLI) | payer MEDICARE, OTHER, SELFPAY ==
--- NOTE | ~2024-03-22 | XR_ITS ---
EXAMINATION: XR chest 2V 03/22/2024 11:37 INDICATION: History of TB. PROCEDURE: 2 view chest COMPARISON: 10/16/2015 FINDINGS: The lungs are clear. The cardiomediastinal silhouette is within normal limits. There are no pleural effusions. There is no pneumothorax suspected. IMPRESSION: 1: NO ACUTE CARDIOPULMONARY DISEASE. Reviewed, dictated and finalized at location B.
== END 2024-03-22 11:20 | disposition home or self-care (01) ==
LOC: ANHIMG 11:22
PROVIDERS: PCP Family Medicine Adolescent Medicine; Visit Provider Nurse Practitioner
DX: R76.12 Nonspecific reaction to cell mediated immunity measurement of gamma interferon antigen response without active tuberculosis (principal)
CPT/HCPCS: 71046

== ENCOUNTER 2024-12-29 16:43 | Inpatient (IN) | payer MEDICARE, OTHER, SELFPAY ==
--- NOTE | ~2024-12-29 | MR_ITS ---
MRI of the brain Clinical History: Transient global amnesia Technique: Axial and sagittal T1-weighted images were acquired. These were followed by axial T2-weigh nataly, diffusion weighted, gradient, and FLAIR images. Following intravenous administration of 13 cc Mu ltiHance gadolinium, T1-weighted fat-sat imaging was performed in the axial and coronal planes. Findings: There is no acute infarct, intracranial hemorrhage, or mass lesion. There are mild hyperint ense signal abnormalities in the periventricular white matter and manoj, compatible mild chronic micro vascular ischemic change. Ventricles and subarachnoid spaces are mildly dilated. Orbits are unremarkable. Paranasal sinuses and mastoids are clear. Major intracranial flow voids are intact. Sagittal midline structures are intact. No abnormal postcontrast enhancement identified. IMPRESSION: Mild chronic microvascular ischemic changes and mild generalized atrophy. No acute abnormality. Reviewed, dictated and finalized at [facility].
--- NOTE | ~2024-12-29 | CT_ITS ---
History: Fall PROCEDURE: CT head without contrast. COMPARISON: 10/13/2020 TECHNIQUE: Axial imaging of the head performed from the skull base to the vertex without IV contrast. Sagittal a nd coronal reformations obtained. DLP: 605 mGy-cm FINDINGS: The ventricles are enlarged. The dilatation of the ventricles is proportional to the degree of sulcal prominence, not uncommon in the senescent brain. Decreased attenuation is identified within the periventricular white matter, likely secondary to micr ovascular ischemic disease, in a patient of this age. There is no mass, mass effect or midline shift. There is no abnormal extra-axial fluid collection or intracranial hemorrhage. Visualized paranasal sinuses are clear. The mastoid air cells are well aerated. No acute displaced fractures within the overlying cranium. Impression: No acute intracranial hemorrhage or suspicious mass effect. Reviewed, dictated and finalized at location A. Impression: No acute intracranial hemorrhage or suspicious mass effect.
--- NOTE | ~2024-12-29 | CT_ITS ---
CTA brain carotid Ordering provider: Magdaleno Sherman MD History: . transient global amnesia . Comparison: None. Technique: CT angiogram head and neck was performed following timed intravenous injection of contrast . Thin slice axial images and reformatted coronal images were obtained. Three dimensional reformatted images of the brain were also obtained using a [email or web address] workstation. DLP: 1046 mGy-cm FINDINGS: HEAD: --ANTERIOR AND MIDDLE CEREBRAL ARTERIES AND BRANCHES: Normal caliber and contour. --INTERNAL CAROTID ARTERIES: Normal caliber and contour. --BASILAR ARTERY AND BRANCHES: Normal caliber and contour. No atheromatous disease. --POSTERIOR CEREBRAL ARTERIES: Normal caliber and contour --POSTERIOR COMMUNICATING ARTERIES: Not well visualized likely related to congenital absence or small size. --ANEURYSM: None visualized. --BRAIN: Please refer to report of CT head performed the same day. --BONES AND SUPERFICIAL SOFT TISSUES: Please refer to report of CT head performed the same day. --PARANASAL SINUSES AND MASTOIDS: Please refer to report of CT head done the same day. NECK: --RIGHT CERVICAL CAROTID SYSTEM: Normal caliber and contour. Percent stenosis per NASCET criteria is 0% No carotid dissection. --LEFT CERVICAL CAROTID SYSTEM: Normal caliber and contour. Percent stenosis per NASCET criteria is 9% No carotid dissection. --VERTEBRAL ARTERIES: Normal caliber and contour. --VISUALIZED AORTIC ARCH AND BRANCHING VESSELS: Mild atheromatous disease but no significant stenosis . --SOFT TISSUES: Unremarkable --CERVICAL SPINE: Age appropriate degenerative changes. IMPRESSION: Percent stenosis per NASCET criteria is 0% on the right and 9% on the left. No large vessel occlusion. Reviewed, dictated and finalized at location A.
--- NOTE | ~2024-12-29 | CT_ITS ---
History: Fall PROCEDURE: CT cervical spine without intravenous contrast. COMPARISON: None TECHNIQUE: Multiple contiguous axial images of the cervical spine were performed without the administration of i ntravenous contrast. DLP: 462 mGy-cm FINDINGS: Straightening and slight reversal of the normal curvature of the cervical spine is identified, likely muscular in origin. Degenerative disease is identified, with osteophyte formation, disc space narrowing, endplate changes and subchondral cyst formation. This is most severe at the level of C5/C6 and C6/C7. No acute fractures are present. The bilateral lung apices are unremarkable. The airway is patent. No acute facial fractures are present. Degenerative disease within the right temporal mandibular joint. Impression: Degenerative disease without acute displaced fracture in the cervical spine or facial bones. Reviewed, dictated and finalized at location A. Impression: Degenerative disease without acute displaced fracture in the cervical spine or facial bones.
--- OUTSIDE RECORDS SUMMARY | 2024-12-29 16:46 | XMS_ITS ---
Author Organization Unknown Patient Care team information Name Category Status Period Participants - - Proposed period not known -
--- OUTSIDE RECORDS SUMMARY | 2024-12-29 16:46 | XMS_ITS | CONTINUITY OF CARE DOCUMENT ---
Author Name gamaliel alston Address Unknown Organization [facility] Address [address] [place] [address] [address] [place] [address] Phone [phone] Care Team Providers Care Yard Demurrage Clerk Name Role Phone Osmany SAAB, Stewart Unavailable INSURANCE PROVIDERS Payer name Policy type / Coverage type [place] red alliance party ID [employer]IE [id number] [employer]AN [employer] insurance [employer] [id number] [place] [employer] Medicare [id number]
--- OUTSIDE RECORDS SUMMARY | 2024-12-29 16:46 | XMS_ITS | Clinical Summary ---
Author Organization [facility] Address [address] [place] [address] Care Team Providers Care Mechanical Test Technician Name Role Phone Unavailable Primary Care Provider Unavailabl e Source Comments [facility],non-owned Affiliates and Associated Physician Practices is amultiple site organization consisting of ambulatory clinics and hospital sitesin [place], [place], [place] and [place]. This disclosure is being madepursuant to the Care Everywhere program and may not contain all information available regarding this patient. Last updated 18.[facility] Allergies No known active allergies Medications * Be aware that medications may not be up to date on this document. Alwaysverify current medications with the patient. Medication Sig Dispensed Refills Start Date End Date Status amoxicillin (AMOXIL) 500 MG capsule amoxicillin 500 mg capsule Active celecoxib (CELEBREX) 200 MG capsule 07/05/2019 Active DULoxetine HCl 60 MG CSDR 06/28/2018 Active metoprolol succinate XL 24hr (TOPROL XL) 50 MG tablet 06/06/2019 Active sulfamethoxazole- trimethoprim (BACTRIM DS; SEPTRA DS) 800-160 MG tablet sulfamethoxazole 800 mg-trimethoprim 160 mg tablet Active clobetasol (TEMOVATE) 0.05 % ointment clobetasol 0.05 % topical ointment 09/07/2019 Active influenza A&B surf ant adj (FLUAD) 0.5 ML JABARI injection Fluad 2018- 65yr up(PF)45 mcg(15 mcgx3)/0.5 mL intramuscular syringe Active Active Problems Problem Noted Date Diagnosed Date Primary osteoarthritis of right knee 11/18/2019 Finding of above normal blood pressure 0 Osteoarthrosis 07/18/2019 Social History Tobacco Use Types Packs/Day Years Used Date Smoking Tobacco: Never Assessed Sex and Gender Information Value Date Recorded Sex Assigned at Not on file Gender Identity Not on file Sexual Orientation Not on file Last Filed Vital Signs Vital Sign Reading Time Taken Comments Blood Pressure - - Pulse - - Temperature - - Respiratory Rate - - Oxygen Saturation - - Inhaled Oxygen Concentration - - Weight 88.5 kg (195 lb) 11/18/2019 8:30 AM TICKET BROKER Height 165.1 cm (5' 5 ) 11/18/2019 8:30 AM TICKET BROKER Body Mass Index 32.45 11/18/2019 8:30 AM TICKET BROKER Plan of Treatment Health Maintenance Due Date Last Done Comments BONE DENSITY TESTING 1944 DTAP/TDAP/TD VACCINES (1 - Tdap) 1963 PNEUMOCOCCAL VACCINE 50+ (1 of 1 - PCV) 1994 ZOSTER VACCINE (1 of 2) 1994 Respiratory Syncytial Virus (RSV) Vaccine Pt: or over 60 yrs (1 - 1-dose 75+ series) 2019 COVID-19 VACCINE ( - 2023-2 5 season) 2024 INFLUENZA VACCINE (#1) 2024 DEPRESSION SCREENING 10/12/2024 MEDICARE AWV CALENDAR YEAR 2024 HEPATITIS B VACCINE Aged Out No longe r eligible based on patient's age to complete this topic HIB VACCINE Aged Out No longer eligi ble based on patient's age to complete this topic HPV VACCINE Aged Out No longer eligi ble based on patient's age to complete this topic MENINGOCOCCAL (Group B) VACC INE SHARED DECISION-MAKING Aged Out No longer eligibl e based on patient's age to complete this topic MENINGOCOCCAL GROUPS A/C/Y/W VACCINE Aged Out No longer eligible b ased on patient's age to complete this topic
--- OUTSIDE RECORDS SUMMARY | 2024-12-29 16:46 | XMS_ITS | Data Portability ---
Author Organization [employer] [facility], [facility] OFF[facility] Address [address] [address] Assessment No assessment recorded. Plan of Treatment Reminders Order Date Submit Date Provider Last Modified By Organization Details Last Modified Time Details Appointments None recorded. Lab None recorded. Referral None recorded. Procedures None recorded. Surgeries None recorded. Imaging XR, knee 2020 021 [email or web address] Not available 12:47:44 US, lower extremity, nonvascular 2020 021 [email or web address] Not available 12:47:44 Medication Orders None recorded. Patient TargetsNo targets recorded. Patient InstructionsNo instructions recorded. Reason for Referral None Reported. Problems No Known Problems Procedures Surgical History Date Name Laterality Status Provider Name and Address Organization Details Recorded Time 9 Knee Surgery completed [facility] 03/15/2021 12:32:27 0 Hysterectomy completed [facility] 03/15/2021 12:32:53 Imaging Results None recorded. Procedure Notes None recorded. Medical Equipment None Reported. Allergies No known drug allergies Medications Name Sig Start Date Stop Date Status Note LastModified by Organization Details LastModified Time celecoxib 200 mg capsule TAKE 1 CAPSULE BY MOUTH EVERY DAY active Not Available Not Available No t Available amoxicillin 500 mg capsule TAKE 4 CAPS BY MOUTH 1 HOUR PRIOR TO APPT active Not Available Not Available No t Available prednisone 10 mg tablet TAKE 4 TABLETS BY MOUTH FOR 7 DAYS, THEN 3 TABS FOR 7 DAYS, 2 TABS FOR 7 DAYS, 1 TAB FOR 7 DAYS active Not Available Not Available No t Available metronidazole 500 mg tablet TAKE 1 TAB BY MOUTH EVERY 8 HOURS. START THIS AFTERNOON, 11/09. END EVENING OF 11/12 active Not Available Not Available No t Available trimethoprim 100 mg tablet TAKE 1 TABLET BY MOUTH AT BEDTIME active Not Available Not Available No t Available ciprofloxacin 500 mg tablet TAKE 1 TABLET BY MOUTH EVERY 12 HOURS FOR 3 DAYS active Not Available Not Available No t Available sulfamethoxaz ole 800 mg-trimethopr im 160 mg tablet TK 1 T PO BID active Not Available Not Available No t Available tramadol 50 mg tablet TAKE 1 TO 2 TABLETS 4 TIMES A DAY NEEDED FOR PAIN active Not Available Not Available No t Available ferrous sulfate 325 mg (65 mg iron) tablet TAKE 1 TABLET BY MOUTH TWICE A DAY WITH MEALS active Not Available Not Available No t Available clobetasol 0.05 % topical foam active Not Available Not Available Not Available metoprolol tartrate 50 mg tablet TAKE 1 TABLET BY MOUTH TWICE A DAY active Not Available Not Available No t Available cefprozil 250 mg tablet TAKE 1 TABLET BY MOUTH TWICE A DAY FOR 14 DAYS active Not Available Not Available No t Available oxybutynin chloride 5 mg tablet TAKE 2 TABLETS BY MOUTH EVERY DAY AT BEDTIME active Not Available Not Available N ot Available clobetasol 0.05 % shampoo APPLY TO SCALP TWICE WEEKLY THEN WASH OUT active Not Available Not Available No t Available nitrofurantoi n monohydrate/m acrocrystals 100 mg capsule active Not Available Not Available Not Available duloxetine 60 mg capsule,delay ed release TAKE 1 CAPSULE BY MOUTH EVERY DAY active Not Available Not Available No t Available solifenacin 10 mg tablet active Not Available Not Available Not Available chlorhexidine gluconate 0.12 % mouthwash SWISH AND SPIT 15 ML FOR 30 SECONDS AFTER BREAKFAST AND BEFORE BED active Not Available Not Available No t Available mesalamine 400 mg capsule (with delayed release tablets inside) TAKE 2 TAB BY MOUTH 3 TIMES DAILY active Not Available Not Available No t Available Vitals Date Recorded Body height Body mass index (BMI) Body weight Heart rate Oxygen saturation Oxygen saturation in Arterial blood by Pulse oximetry Body temperature Systolic blood pressure Diastolic blood pressure Provider Name and Address Organization Details Last Updated DateTime 1 167.64 cm 28.2 kg/m2 16239.6 6 g 64 /min 96 % 96 % 98 [degF] 146 mm[Hg] 92 mm[Hg] T[facility] [employer], [facility] 1 12:27:13 Social History Question Answer Notes LastModified by Organizat ion Details LastModified Time Tobacco Smoking Status Former Smoker NAKUL Mayorga - [facility], [facility] 03/15/2021 12:29:28 What Is Your Level Of Alcohol Consumption? None [email or web address] Information not available 03/15/2021 Auto Related Injury? No [email or web address] Information not available 03/15/2021 What Is Your Occupation? Retired Information not available 03/15/2021 Which Of Your Hands Is Dominant? Right [email or web address] Information not available 03/15/2021 Live Alone Or With Others? With Others [email or web address] Information not available 03/15/2021 Marital Status [email or web address] Informatio n not available 03/15/2021 If Injured, Is Litigation Ongoing? No [email or web address] Information not available 03/15/2021 How Many Years Have You Smoked Tobacco? 20 [email or web address] Information not available 03/15/2021 Work Related Injury? No Information not available 03/15/2021 Sex: Unknown Functional Status Question Answer Note LastModified by Organization D etails LastModified Time What is your exercise level? Moderate [email or web address] Information not available 03/15/2021 Mental Status None recorded. Family History Relationship Description Onset Age of this Age Resolved Age Notes LastModified by Organization Details LastModified Time Father Heart disease Not available 2020 12:28:33 Sister Depressive disorder [email or web address] Not available 2020 12:28:47 Mother Leukemia [email or web address] Not availabl e 03/15/2021 12:29:07 Medical History Condition Response Arthritis Y Hypertension Y Depression Y Gynecological HistoryNo gynecological history recorded. Obstetrics History GPAL:G 0 P 0 0 0 0 Past Encounters Encounter ID Performer Location Encounter Start Date Encounter Closed Date Diagnosis/Indication Diagnosis SNOMED-CT Code Diagnosis ICD10 Code Diagnosis Note [id number] Kana Madrid, DO [facility] [address] [place] [address] 03/15/2021 11:02:40 03/21/2021 12:47:43 Knee pain 33328022 M25.561 I discussed with the patient today even though she is very interested in more conservati ve avenues as well as investigat ional avenues for her knee pain that at this point I would recommend her to continue to follow through for a potential knee replacemen t. I do not feel that anything short of this will provide her the amount of benefit that she would want to have at this point in time. She expresses understand ing of what we are discussing today. She still would like to think over this and I can certainly discuss further options with her moving forward if she would like. She will contact us if she would like to discuss any other avenues for potential treatment beyond just going in for replacemen t. Health Concerns Section Related Observation LastModified by Organization Detai ls LastModified Time None Recorded Concern Status LastModified by Organization Details LastModified Time None Recorded Advance Directives Directive None Recorded Payers Encounter Date Sequence Insurance Name Policy Number Policy Ocasio Covered Member ID Ocasio Member ID Guarantor Name 03/15/2021 2 [employer] - CHOICE (POS II) [id number] Daphne Garrison [id number] Daphne Garrison 03/15/2021 1 [employer] (MEDICARE REPLACEMENT /ADVANTAGE - PPO) Daphne Garrison [id number] Daphne Garrison Notes Date Note Type Note Provider Name a nd Address Organization Details Recorded Time 03/15/2021 text/html Patient is a 75-year-old for female who is seen today for evaluation of her right knee pain. The patient states that her right knee really started swelling and causing her increased pain about 2 years ago. She has been noticing that it is gradually been worsening over time. She was using CBD oil and this seemed to actually provide her some pretty good benefit until just recently where it started worse. She has now fallen twice related to the knee itself both in the last month. She states she starts having trouble clearing the foot and falling down stairs. She denies any real weakness of this it is more just limitation of the pain itself. She states it is very stiff and there is pressure within it and this came down. She has had a history of having a left knee replacement and she states this is different but similar type of functional limitation compared to when she was going to need her left knee replaced. She has tried steroid injections and these have been minimal benefit to this point. Lars Madrid, [address], [place], [address], [facility], [facility] 03/19/2021 09:35:37 OBGyn Episode No OBEpisode recorded.
[2024-12-29 16:57] VITALS: BP 151/80; PULSE 73; RESP 16; TEMP 36.8; O2SAT 100
--- NOTE | 2024-12-29 17:09 | ED_ITS ---
HPI - Head Injury General Chief complaint: Head Injury <ALEXIA Mcrae Last Filed: 12/29/24 17:37> Stated complaint: Fell unknown when -black eye, repeating questions <ALEXIA Mcrae Last Filed: 12/29/24 17:37> Time Seen by Provider: 12/29/24 17:09 <ALEXIA Mcrae Last Filed: 12/29/24 17:37> Focused HPI: Patient is an 79-year-old female who presents the ED with report of head injury, confusion. Son at bedside assisted in providing information. Reports patient was normal yesterday. He saw patient this morning and noticed that she had dark purple bruising around her right forehead and right periorbital region. Patient told him at that time that she had fallen on Thursday. Son reports she had a very elaborate story about her fall and she had stated that makeup had covered the bruises yesterday. Patient and son planted [place] all afternoon and patient was acting normally. Within the past 1 hour, patient has had increased confusion. Has been repeating questions over and over, does not remember falling, has not been able to answer simple questions she usually would. Son brought her here for further evaluation. Patient denies focal weakness or numbness, vision changes. GENERAL: Well-appearing, well-nourished, and in no acute distress. HEAD: Normocephalic. R eye periorbital ecchymosis extending to R forehead, with some swelling/contusion. CHEST: Clear to auscultation. ?No respiratory distress. HEART: Regular rate and rhythm.? NEURO: ?Alert and oriented x3, but confused, repeating questioning, does not believe she fell or has bruising. Equal court abstractor strength bilaterally. No pronator drift. Patient screened in triage and initial orders placed.? ?Additional care and disposition to be based upon?diagnostic testing and treatment. <ALEXIA Mcrae Last Filed: 12/29/24 17:37> Source: patient and family <ALEXIA Mcrae Last Filed: 12/29/24 17:37> Mode of arrival: ambulatory <ALEXIA Mcrae Last Filed: 12/29/24 17:37> Limitations: altered mental status <Renee Galeana PA-C - Last Filed: 12/29/24 17:37> History of Present Illness HPI Narrative: Agree with HPI <Magdaleno Sherman MD - Last Filed: 12/29/24 22:33> Related Data Home medications: Home Medications ?Medication ?Instructions ?Recorded ?Confirmed ?Last Taken ?Type multivitamin 1 tablet PO DAILY 01/15/21 11/28/24 Unknown History vedolizumab 300 mg intravenous 300 mg IV .every 8 weeks 07/07/23 11/28/24 Unknown History solution (Entyvio) pimecrolimus 1 % topical cream 1 applic topical DAILY PRN Rash 11/28/24 12/07/24 Unknown History <Renee Galeana PA-C - Last Filed: 12/29/24 17:37> Allergies/Adverse reactions: Allergies Allergy/AdvReac Type Severity Reaction Status Date / Time No Known Allergies Allergy Verified 12/29/24 16:45 <Renee Galeana PA-C - Last Filed: 12/29/24 17:37> Review of Systems 2 Review of Systems: ROS unobtainable: Yes unobtainable due to mental status <Magdaleno Sherman MD - Last Filed: 12/29/24 22:33> [facility] Past Medical History Medical History: Medical History Pseudopolyp of descending colon Obesity Skin lesion of left leg Skin lesion of right lower extremity Hypertension Rectal itching Abdominal cramping Family hx total abdominal hysterectomy/bilateral salpingo-oophorectomy (~2008) Positive QuantiFERON-TB Gold test JOVANA (acute kidney injury) COVID-19 Ulcerative colitis (2020) Mixed hyperlipidemia Major depressive disorder, recurrent, mild Overactive bladder Arthritis of knee, right Arthritis DDD (degenerative disc disease) Psoriasis Anemia Sepsis Chronic UTI <Renee Galeana PA-C - Last Filed: 12/29/24 17:37> Surgical History Surgical History: Surgical History History of hemorrhoidectomy Excisional hemorrhoidectomy x3 on 08/03/23 SAW History of arthroscopy of left knee (2018) History of hysterectomy with bilateral oophorectomy (2008) Hx of bladder repair surgery (~2008) History of right knee joint replacement (04/2021) surgery April 22, 2021 History of laminectomy History of left knee replacement (2011) 12/19/2011 <Renee Galeana PA-C - Last Filed: 12/29/24 17:37> Family History Family History: Family History Mother Leukemia Father Heart attack Depression Sibling Heart abnormality <Renee Galeana PA-C - Last Filed: 12/29/24 17:37> Social History Social History: Social History Smoking packs per day: 1 Smoking cigarettes per day: 20.0 Years smoked: 25 Smoking pack-years: 25.00 Smoking status: Former smoker Tobacco type: cigarettes Second hand tobacco smoke exposure: No Smoking end date: 10/12/08 Alcohol intake: never Substance use: never Substance use type: does not use Do You Feel Safe in your Home?: Yes Lack of Transportation: No Lack of Food: Never True Current Housing: I Have Housing Concerned About Future Housing: No Difficulty Paying Gas/Electric Bills: No Difficulty Paying for Meds: No Currently Unemployed: No Education: Bachelor's Degree Difficulty w/ Childcare or Family Care: No Living arrangements: with family Additional living arrangements comments: [facility] Occupation/Education: retired Gender identity (if verbalized by the patient): Female Spiritual care concerns: No Agree to blood products: Yes <Renee Galeana PA-C - Last Filed: 12/29/24 17:37> Exam 2 Narrative: GENERAL: Well-appearing, well-nourished, and in no acute distress. HEAD: Normocephalic, atraumatic. EYES: PERRL and EOMI. Old bruising above the right eyebrow. Likely dependent dark blood around the medial canthus. ENT: Mucous membranes moist. NECK: Supple. CHEST: Clear to auscultation. No respiratory distress. HEART: Regular rate and rhythm. Normal peripheral pulses. ABDOMEN: Soft, nontender, nondistended. EXTREMITIES: Normal range of motion. No edema. Abrasions to the palms of the hands at the base of the thenar eminence bilaterally. SKIN: Warm, dry, no rash. NEURO: No focal deficits. Alert and oriented to self but is unsure about place and date. She can identify provide her room until you their history/background. <Magdaleno Sherman MD - Last Filed: 12/29/24 22:33> Course Course Emergency Course: I suspect patient did have a fall a few days ago. Symptoms today seem to be reflected of transient global amnesia. Discussed with neurology who is in agreement. Like CTA prior to patient being admitted. If the CT is normal patient should have her atorvastatin increased to 40 mg, and she should be started on dual anti-platelet therapy. He would like for the patient to receive an MRI and an EEG. I spoke with Dr. Cleveland. Patient is accepted to the hospitalist service. Patient's son been updated on the care plan and are comfortable with this. <Magdaleno Sherman MD - Last Filed: 12/29/24 22:33> Vital Signs Vital signs: Vital Signs Temperature 98.2 F 12/29/24 16:57 Pulse Rate 73 12/29/24 16:57 Respiratory Rate 16 12/29/24 16:57 Blood Pressure 151/80 H 12/29/24 16:57 Pulse Oximetry 100 12/29/24 16:57 Oxygen Delivery Room Air 12/29/24 16:57 Temperature 98.2 F 12/29/24 16:57 Pulse Rate 66 12/29/24 21:47 Respiratory Rate 15 12/29/24 21:47 Blood Pressure 164/84 H 12/29/24 21:47 Pulse Oximetry 98 12/29/24 21:47 Oxygen Delivery Room Air 12/29/24 16:57 <Renee Galeana PA-C - Last Filed: 12/29/24 17:37> Vital Signs Temperature 98.2 F 12/29/24 16:57 Pulse Rate 73 12/29/24 16:57 Respiratory Rate 16 12/29/24 16:57 Blood Pressure 151/80 H 12/29/24 16:57 Pulse Oximetry 100 12/29/24 16:57 Oxygen Delivery Room Air 12/29/24 16:57 Temperature 98.2 F 12/29/24 16:57 Pulse Rate 66 12/29/24 21:47 Respiratory Rate 15 12/29/24 21:47 Blood Pressure 164/84 H 12/29/24 21:47 Pulse Oximetry 98 12/29/24 21:47 Oxygen Delivery Room Air 12/29/24 16:57 <Magdaleno Sherman MD - Last Filed: 12/29/24 22:33> MDM - Head Injury MDM Narrative Medical decision making narrative: MSE by RUBIO in triage. <Renee Galeana PA-C - Last Filed: 12/29/24 17:37> Lab Data Result diagrams: 12/29/24 18:40 12/29/24 18:40 <Renee Galeana PA-C - Last Filed: 12/29/24 17:37> Labs: Lab Results 12/29/24 12/29/24 12/29/24 Range/Units 17:35 18:40 19:25 WBC 8.7 (4.5-10.0) K/mm3 RBC 4.20 (4.2-5.4) M/mm3 Hgb 11.9 L (12.0-15.0) g/dL Hct 37.6 (37.0-47.0) % MCV 89.5 (80-100) fl MCH 28.3 (26-34) pg MCHC 31.6 L (32-36) g/dl RDW 13.5 (11.5-14.5) % Plt Count 241 (150-375) k/mm3 MPV 9.0 (7.4-10.4) fl Immature Gran % (Auto) 0.2 (0-0.5) % Neut % (Auto) 76.1 H (45.5-73.1) % Lymph % (Auto) 11.5 L (18.3-44.2) % Harvey % (Auto) 9.5 H (2.6-8.5) % Eos % (Auto) 2.2 (0-4.4) % Baso % (Auto) 0.5 (0.2-1.2) % Lymph # (Auto) 1.00 (0.9-3.2) K/mm3 Harvey # (Auto) 0.8 H (0.1-0.6) K/mm3 Eos # (Auto) 0.2 (0-0.3) K/mm3 Baso # (Auto) 0.0 (0.0-0.1) K/mm3 Abs Immat Gran (auto) 0.02 (0.00-0.031) K/mm3 Absolute Neuts (auto) 6.6 (1.3-6.7) K/mm3 Absolute Nucleated RBC 0.000 (0.0-0.012) K/mm3 Nucleated RBC % 0.0 (0.0-0.2) % PT 13.3 (11.1-14.7) Seconds INR 1.0 APTT 28.8 (22.3-36.8) Seconds Sodium 138 (137-145) mmol/L Potassium 4.1 (3.4-5.0) mmol/L Chloride 101 (98-107) mmol/L Carbon Dioxide 30 (22-30) mmol/L Anion Gap 7 (4-12) mmol/L BUN 25 H D (7-17) mg/dL Creatinine 1.08 H (0.7-1.0) mg/dL Estim Creat Clear Calc 41 ml/min Estimated GFR 49 L (59 - ) Glucose 109 (65-110) mg/dL POC Capillary Glucose 100 (65-105) mg/dl Calcium 9.4 (8.4-10.2) mg/dL Total Bilirubin 0.4 (0.2-1.3) mg/dL AST 27 (14-36) U/L ALT 19 (6-35) U/L Alkaline Phosphatase 101 (38-126) U/L Total Protein 8.0 (6.3-8.2) g/dL Albumin 4.2 (3.5-5.1) g/dL Urine Color Yellow (Yellow) Urine Appearance Clear (Clear) Urine pH 8.5 (5.0-9.0) Ur Specific Ferdinand 1.020 (1.001-1.035) Urine Protein Negative (Negative) mg/dL Urine Glucose (UA) Negative (Negative) mg/dL Urine Ketones Negative (Negative) mg/dL Ur Blood (Man) Negative (Negative) Urine Nitrate Negative (Negative) Urine Bilirubin Negative (Negative) Urine Urobilinogen 0.2 (<2.0) mg/dL Leukocyte Esterase Rfl Negative (Negative) VIANEY/UL 12/29/24 Range/Units 19:34 WBC (4.5-10.0) K/mm3 RBC (4.2-5.4) M/mm3 Hgb (12.0-15.0) g/dL Hct (37.0-47.0) % MCV (80-100) fl MCH (26-34) pg MCHC (32-36) g/dl RDW (11.5-14.5) % Plt Count (150-375) k/mm3 MPV (7.4-10.4) fl Immature Gran % (Auto) (0-0.5) % Neut % (Auto) (45.5-73.1) % Lymph % (Auto) (18.3-44.2) % Harvey % (Auto) (2.6-8.5) % Eos % (Auto) (0-4.4) % Baso % (Auto) (0.2-1.2) % Lymph # (Auto) (0.9-3.2) K/mm3 Harvey # (Auto) (0.1-0.6) K/mm3 Eos # (Auto) (0-0.3) K/mm3 Baso # (Auto) (0.0-0.1) K/mm3 Abs Immat Gran (auto) (0.00-0.031) K/mm3 Absolute Neuts (auto) (1.3-6.7) K/mm3 Absolute Nucleated RBC (0.0-0.012) K/mm3 Nucleated RBC % (0.0-0.2) % PT (11.1-14.7) Seconds INR APTT (22.3-36.8) Seconds Sodium (137-145) mmol/L Potassium (3.4-5.0) mmol/L Chloride (98-107) mmol/L Carbon Dioxide (22-30) mmol/L Anion Gap (4-12) mmol/L BUN (7-17) mg/dL Creatinine (0.7-1.0) mg/dL Estim Creat Clear Calc ml/min Estimated GFR (59 - ) Glucose (65-110) mg/dL POC Capillary Glucose 82 (65-105) mg/dl Calcium (8.4-10.2) mg/dL Total Bilirubin (0.2-1.3) mg/dL AST (14-36) U/L ALT (6-35) U/L Alkaline Phosphatase (38-126) U/L Total Protein (6.3-8.2) g/dL Albumin (3.5-5.1) g/dL Urine Color (Yellow) Urine Appearance (Clear) Urine pH (5.0-9.0) Ur Specific Ferdinand (1.001-1.035) Urine Protein (Negative) mg/dL Urine Glucose (UA) (Negative) mg/dL Urine Ketones (Negative) mg/dL Ur Blood (Man) (Negative) Urine Nitrate (Negative) Urine Bilirubin (Negative) Urine Urobilinogen (<2.0) mg/dL Leukocyte Esterase Rfl (Negative) VIANEY/UL <Renee Galeana PA-C - Last Filed: 12/29/24 17:37> Lab Results 12/29/24 12/29/24 12/29/24 Range/Units 17:35 18:40 19:25 WBC 8.7 (4.5-10.0) K/mm3 RBC 4.20 (4.2-5.4) M/mm3 Hgb 11.9 L (12.0-15.0) g/dL Hct 37.6 (37.0-47.0) % MCV 89.5 (80-100) fl MCH 28.3 (26-34) pg MCHC 31.6 L (32-36) g/dl RDW 13.5 (11.5-14.5) % Plt Count 241 (150-375) k/mm3 MPV 9.0 (7.4-10.4) fl Immature Gran % (Auto) 0.2 (0-0.5) % Neut % (Auto) 76.1 H (45.5-73.1) % Lymph % (Auto) 11.5 L (18.3-44.2) % Harvey % (Auto) 9.5 H (2.6-8.5) % Eos % (Auto) 2.2 (0-4.4) % Baso % (Auto) 0.5 (0.2-1.2) % Lymph # (Auto) 1.00 (0.9-3.2) K/mm3 Harvey # (Auto) 0.8 H (0.1-0.6) K/mm3 Eos # (Auto) 0.2 (0-0.3) K/mm3 Baso # (Auto) 0.0 (0.0-0.1) K/mm3 Abs Immat Gran (auto) 0.02 (0.00-0.031) K/mm3 Absolute Neuts (auto) 6.6 (1.3-6.7) K/mm3 Absolute Nucleated RBC 0.000 (0.0-0.012) K/mm3 Nucleated RBC % 0.0 (0.0-0.2) % PT 13.3 (11.1-14.7) Seconds INR 1.0 APTT 28.8 (22.3-36.8) Seconds Sodium 138 (137-145) mmol/L Potassium 4.1 (3.4-5.0) mmol/L Chloride 101 (98-107) mmol/L Carbon Dioxide 30 (22-30) mmol/L Anion Gap 7 (4-12) mmol/L BUN 25 H D (7-17) mg/dL Creatinine 1.08 H (0.7-1.0) mg/dL Estim Creat Clear Calc 41 ml/min Estimated GFR 49 L (59 - ) Glucose 109 (65-110) mg/dL POC Capillary Glucose 100 (65-105) mg/dl Calcium 9.4 (8.4-10.2) mg/dL Total Bilirubin 0.4 (0.2-1.3) mg/dL AST 27 (14-36) U/L ALT 19 (6-35) U/L Alkaline Phosphatase 101 (38-126) U/L Total Protein 8.0 (6.3-8.2) g/dL Albumin 4.2 (3.5-5.1) g/dL Urine Color Yellow (Yellow) Urine Appearance Clear (Clear) Urine pH 8.5 (5.0-9.0) Ur Specific Ferdinand 1.020 (1.001-1.035) Urine Protein Negative (Negative) mg/dL Urine Glucose (UA) Negative (Negative) mg/dL Urine Ketones Negative (Negative) mg/dL Ur Blood (Man) Negative (Negative) Urine Nitrate Negative (Negative) Urine Bilirubin Negative (Negative) Urine Urobilinogen 0.2 (<2.0) mg/dL Leukocyte Esterase Rfl Negative (Negative) VIANEY/UL 03/20/25 Range/Units 19:34 WBC (4.5-10.0) K/mm3 RBC (4.2-5.4) M/mm3 Hgb (12.0-15.0) g/dL Hct (37.0-47.0) % MCV (80-100) fl MCH (26-34) pg MCHC (32-36) g/dl RDW (11.5-14.5) % Plt Count (150-375) k/mm3 MPV (7.4-10.4) fl Immature Gran % (Auto) (0-0.5) % Neut % (Auto) (45.5-73.1) % Lymph % (Auto) (18.3-44.2) % Harvey % (Auto) (2.6-8.5) % Eos % (Auto) (0-4.4) % Baso % (Auto) (0.2-1.2) % Lymph # (Auto) (0.9-3.2) K/mm3 Harvey # (Auto) (0.1-0.6) K/mm3 Eos # (Auto) (0-0.3) K/mm3 Baso # (Auto) (0.0-0.1) K/mm3 Abs Immat Gran (auto) (0.00-0.031) K/mm3 Absolute Neuts (auto) (1.3-6.7) K/mm3 Absolute Nucleated RBC (0.0-0.012) K/mm3 Nucleated RBC % (0.0-0.2) % PT (11.1-14.7) Seconds INR APTT (22.3-36.8) Seconds Sodium (137-145) mmol/L Potassium (3.4-5.0) mmol/L Chloride (98-107) mmol/L Carbon Dioxide (22-30) mmol/L Anion Gap (4-12) mmol/L BUN (7-17) mg/dL Creatinine (0.7-1.0) mg/dL Estim Creat Clear Calc ml/min Estimated GFR (59 - ) Glucose (65-110) mg/dL POC Capillary Glucose 82 (65-105) mg/dl Calcium (8.4-10.2) mg/dL Total Bilirubin (0.2-1.3) mg/dL AST (14-36) U/L ALT (6-35) U/L Alkaline Phosphatase (38-126) U/L Total Protein (6.3-8.2) g/dL Albumin (3.5-5.1) g/dL Urine Color (Yellow) Urine Appearance (Clear) Urine pH (5.0-9.0) Ur Specific Ferdinand (1.001-1.035) Urine Protein (Negative) mg/dL Urine Glucose (UA) (Negative) mg/dL Urine Ketones (Negative) mg/dL Ur Blood (Man) (Negative) Urine Nitrate (Negative) Urine Bilirubin (Negative) Urine Urobilinogen (<2.0) mg/dL Leukocyte Esterase Rfl (Negative) VIANEY/UL <Magdaleno Sherman MD - Last Filed: 12/29/24 22:33> Imaging Data Radiologist's impression: ITS Impressions Head CT 12/29/24 17:32 Impression: No acute intracranial hemorrhage or suspicious mass effect. Head/Cervical Spine/Facial Bones CT 12/29/24 17:34 Impression: Degenerative disease without acute displaced fracture in the cervical spine or facial bones. Head/Neck CTA 12/29/24 21:02 IMPRESSION: Percent stenosis per NASCET criteria is 0% on the right and 9% on the left. No large vessel occlusion. <Magdaleno Sherman MD - Last Filed: 12/29/24 22:33> Critical Care Time Critical Care Time Critical Care Time: Yes <Magdaleno Sherman MD - Last Filed: 12/29/24 22:33> Total Critical Care Time: 35 <Magdaleno Sherman MD - Last Filed: 12/29/24 22:33> Discharge Plan Discharge Clinical Impression: Transient global amnesia <Renee Galeana PA-C - Last Filed: 12/29/24 17:37> Patient Disposition: Still a Patient <Renee Galeana PA-C - Last Filed: 12/29/24 17:37> Condition: Stable <Renee Galeana PA-C - Last Filed: 12/29/24 17:37>
[2024-12-29 17:39] LABS: Glucose Point of Care 100 mg/dl (65-105)
[2024-12-29 18:47] LABS: Basophils Percent Auto 0.5 % (0.2-1.2); Eosinophils Absolute Auto 0.2 K/mm3 (0-0.3); Eosinophils Percent Auto 2.2 % (0-4.4); Hematocrit 37.6 % (37.0-47.0); Hemoglobin 11.9 g/dL (12.0-15.0); Immature Granulocyte Absolute 0.02 K/mm3 (0.00-0.031); Immature Granulocyte Percent A 0.2 % (0-0.5); Lymphocytes Percent Auto 11.5 % (18.3-44.2); Mean Corpuscular HGB Conc 31.6 g/dl (32-36); Mean Corpuscular Hemoglobin 28.3 pg (26-34); Mean Corpuscular Volume 89.5 fl (80-100); Monocytes Absolute Auto 0.8 K/mm3 (0.1-0.6); Monocytes Percent Auto 9.5 % (2.6-8.5); Neutrophils Absolute Auto 6.6 K/mm3 (1.3-6.7); Neutrophils Percent Auto 76.1 % (45.5-73.1); Platelet Count Result 241 k/mm3 (150-375); Red Cell Distribution Width 13.5 % (11.5-14.5); White Blood Count 8.7 K/mm3 (4.5-10.0)
--- OUTSIDE RECORDS SUMMARY | 2024-12-29 18:53 | XMS_ITS | Clinical Summary ---
Author Organization [facility] Address [address] [place] [address] Care Team Providers Care Railroader Name Role Phone Unavailable Primary Care Provider Unavailabl e Source Comments [facility],non-owned Affiliates and Associated Physician Practices is amultiple site organization consisting of ambulatory clinics and hospital sitesin [place], [place], [place] and [place]. This disclosure is being madepursuant to the Care Everywhere program and may not contain all information available regarding this patient. Last updated [address] [facility] Allergies No known active allergies Medications * [...] 88.5 kg (195 lb) 11/18/2019 8:30 AM NETWORK SYSTEMS INTEGRATOR Height 165.1 cm (5' 5 ) 11/18/2019 8:30 AM NETWORK SYSTEMS INTEGRATOR Body Mass Index 32.45 11/18/2019 8:30 AM NETWORK SYSTEMS INTEGRATOR Plan of Treatment Health Maintenance Due Date [...]
--- OUTSIDE RECORDS SUMMARY | 2024-12-29 18:53 | XMS_ITS | CONTINUITY OF CARE DOCUMENT ---
Author Name gamaliel alston Address Unknown Organization [facility] Address [id number] [place] [address] [address] [place] [address] Phone [phone] Care Team Providers Care Executive Chairman Of The Board Name Role Phone Osmany [employer], Stewart Unavailable INSURANCE PROVIDERS Payer name Policy type / Coverage type [employer] red alliance party ID [employer] SALLIE [id number] [employer] BENEFIT PLAN [employer] insurance [employer] [id number] [place] [employer] Medicare [id number]
[2024-12-29 18:55] LABS: Alanine Aminotransferase 19 U/L (6-35); Albumin Level 4.2 g/dL (3.5-5.1); Alkaline Phosphatase 101 U/L (38-126); Anion Gap 7 mmol/L (4-12); Aspartate Amino Transferase 27 U/L (14-36); Bilirubin,Total 0.4 mg/dL (0.2-1.3); Blood Urea Nitrogen 25 mg/dL (7-17); Calcium 9.4 mg/dL (8.4-10.2); Carbon Dioxide 30 mmol/L (22-30); Chloride 101 mmol/L (98-107); Estimated CRCL calculation 41 ml/min; Estimated Glomerular Filt Rate 49; Glucose 109 mg/dL (65-110); Potassium 4.1 mmol/L (3.4-5.0); Sodium 138 mmol/L (137-145)
[2024-12-29 18:59] LABS: Partial Thromboplastin Time 28.8 Seconds (22.3-36.8); Prothrombin Time 13.3 Seconds (11.1-14.7)
[2024-12-29 19:36] LABS: Glucose Point of Care 82 mg/dl (65-105)
[2024-12-29 19:53] LABS: Add Urine Microscopic? NO; Appearance Urine Clear (Clear); Bilirubin Urine Negative (Negative); Blood Urine Negative (Negative); Color Urine Yellow (Yellow); Glucose Urine UA Negative (Negative); Ketones Urine Negative (Negative); Leukocyte Esterase Ur Negative LEU/UL (Negative); Nitrate Urine Negative (Negative); Protein Urine Negative (Negative); Urobilinogen Urine 0.2 mg/dL (<2.0); pH Urine 8.5 (5.0-9.0)
[2024-12-29] MEDS: ASPIRIN 325 MG TABLET PO (21:44)
[2024-12-29] MEDS: CLOPIDOGREL BISULFATE 300 MG TABLET PO (21:45)
[2024-12-29 21:47] VITALS: BP 164/84; PULSE 66; RESP 15; O2SAT 98
--- NOTE | 2024-12-29 21:55 | P.HP_ITS ---
H&P: HPI History of Present Illness Date/Time: 12/29/24 21:55 Chief Complaint: Altered mental status. Narrative: This is an 79-year-old female with history of hypertension, hyperlipidemia, and ulcerative colitis on Entyvo and mesalamine who presented to the emergency department via private vehicle for evaluation of altered mental status. She is not able to provide an accurate history at this time and a majority the following is obtained via a review of her electronic medical records as well as information provided by her and son who were at bedside. The patient's son is here from [facility] and he reports that his mother has been in her usual state of health. This morning however he noticed that she had a good amount of bruising around her right eye which he had not noticed earlier on in . With further questioning she reports that she fell in a parking lot while going to get her taxes done on Thursday and that she had been keeping it covered with makeup. She did not tell anybody about the fall and did not seem to worried about it however she did admit to her son that she was not certain how she fell and did not know if she lost consciousness. In any event, she seemed to be in good spirits today and they had a busy day shopping at the nursery and planting [place] and bulbs in her garden bed. At about 15:00 they went inside and within an hour or so she had a pretty acute change in mental status. Son reports that she asked him no less than 6 times within a 5 minute time frame what day it was and why she had so many missed phone calls. She did not recall falling on Thursday and repeatedly asked why she had a black eye. At the time my evaluation the patient still does not recall falling on Thursday nor does she recall the events that happened today. This is causing her much frustration. She denies vertigo, visual changes, facial droop, difficulty speaking and swallowing, paresthesias, and focal weakness. She also denies chest pain, pleuritic pain, shortness of breath, palpitations, and sensations of racing heart. No recent cold or flu symptoms. No recent change in medications. No reports of seizure activities or history of seizures. She denies alcohol and illicit substance abuse. In the ED: Vital signs were stable on arrival. Labs were pretty unremarkable and consistent with her baseline.?Urinalysis was unremarkable. Head CT showed no acute intracranial hemorrhage or suspicious mass effect. Cervical spine CT was without acute findings. Facial bone CT did not show any acute findings. CTA of the head and neck showed no large vessel occlusion and 9% stenosis of the left internal carotid artery. ED physician spoke with the on-call neurologist who recommended starting the patient on aspirin and clopidogrel pending brain MRI. She is being admitted in this setting for further evaluation of acute change in mental status with amnesia, possible transient global amnesia versus other. Review of Systems Review of Systems: 12 systems were reviewed and are negativ e except for as per HPI. 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 COVID-19 Ulcerative colitis (2020) Mixed hyperlipidemia Major depressive disorder, recurrent, mild Overactive bladder Arthritis Psoriasis Anemia Surgical History Surgical History (Updated 12/30/24 @ 03:34 by Rocío Cruz PA-C) History of bladder suspension procedure (2008) History of cataract extraction History of bladder repair surgery History of hemorrhoidectomy Excisional hemorrhoidectomy x3 on 08/03/23 [facility]W History of arthroscopy of left knee (2017) History of hysterectomy with bilateral oophorectomy (2008) History of right knee joint replacement (04/2021) History of laminectomy History of left knee replacement (12/2011) Family History Family History Mother Leukemia Father Heart attack Depression Sibling Heart abnormality Social History Social History (Updated 12/30/24 @ 03:35 by Rcoío Cruz PA-C) Social History: Surrogate medical decision maker: Steve Garrison, spouse. Code status: Full code. Smoking packs per day: 1 Smoking cigarettes per day: 20.0 Years smoked: 25 Smoking pack-years: 25.00 Smoking status: Former smoker Tobacco type: cigarettes Second hand tobacco smoke exposure: No Smoking end date: 10/12/08 Alcohol intake: never Substance use: never Substance use type: does not use Do You Feel Safe in your Home?: Yes Lack of Transportation: No Lack of Food: Never True Current Housing: I Have Housing Concerned About Future Housing: No Difficulty Paying Gas/Electric Bills: No Difficulty Paying for Meds: No Currently Unemployed: No Education: Bachelor's Degree Difficulty w/ Childcare or Family Care: No Living arrangements: with family Additional living arrangements comments: Lives with spouse in [place]. Spiritual care concerns: No Agree to blood products: Yes Meds Home Medications and Allergies Home Medications ?Medication ?Instructions ?Recorded ?Confirmed ?Type multivitamin 1 tablet PO DAILY 01/15/21 12/29/24 History vedolizumab 300 mg intravenous 300 mg IV .every 8 weeks 07/07/23 12/29/24 History solution (Entyvio) celecoxib 200 mg capsule 200 mg PO DAILY #90 caps 05/18/24 12/29/24 Rx duloxetine 60 mg capsule,delayed 60 mg PO QAM #90 caps 05/18/24 12/29/24 Rx release metoprolol tartrate 50 mg tablet See Rx Instructions .Route 07/14/24 12/29/24 Rx .COMPLEX #180 tabs atorvastatin 20 mg tablet 20 mg PO DAILY #90 tabs 10/09/24 12/29/24 Rx pimecrolimus 1 % topical cream 1 applic topical DAILY PRN Rash 11/28/24 12/29/24 History mesalamine 400 mg capsule (with 1,200 mg (3 x 400 mg) PO BID 1 12/20/24 12/29/24 Rx delayed release tablets inside) month #180 caps Allergies Allergy/AdvReac Type Severity Reaction Status Date / Time No Known Allergies Allergy Verified 12/29/24 16:45 Vital Signs Vital Signs - 24 hr 12/29/24 16:57 12/29/24 21:47 Temperature 98.2 F Pulse Rate 73 66 Respiratory Rate 16 15 Blood Pressure 151/80 H 164/84 H Pulse Oximetry 100 98 Oxygen Delivery Room Air Exam Narrative: General: Well-developed elderly female sitting up in bed in no acute distress. Weight: 64.1 kg. BMI: 23.5. HEENT: Bruising about the right eye. PERRL, EOMI. Sclera anicteric. Oral mucosa moist. Neck: Supple. No carotid bruits. Respiratory: Lungs are clear to auscultation bilaterally. Cardiovascular: Regular rate and rhythm with S1-S2. Gastrointestinal: Abdomen is soft, nontender, and nondistended with positive bowel sounds. Skin: Warm and dry. No rash or lesions on limited exam. Extremities: No cyanosis, clubbing, or edema. Radial and pedal pulses intact. Neurological: Alert and oriented to name, age, date of , place, and president. She is confused with regards to situation and is very repetitive. Cranial nerves 2-12 are grossly intact. Speech is clear. No facial asymmetry. Hand head of physics and foot pushes are equal bilaterally. Strength 5/5 in upper and lower extremities. No pronator drift. Normal finger-nose. Psychiatric: Pleasantly confused and cooperative. Repetitive. H&P: Results Labs Labs: Short CBC 12/29/24 Range/Units 18:40 WBC 8.7 (4.5-10.0) K/mm3 Hgb 11.9 L (12.0-15.0) g/dL Hct 37.6 (37.0-47.0) % Plt Count 241 (150-375) k/mm3 BMP 12/29/24 18:40 Sodium 138 Potassium 4.1 Chloride 101 Carbon Dioxide 30 BUN 25 H D Creatinine 1.08 H Glucose 109 Calcium 9.4 Liver Function 12/29/24 Range/Units 18:40 Total Bilirubin 0.4 (0.2-1.3) mg/dL AST 27 (14-36) U/L ALT 19 (6-35) U/L Alkaline Phosphatase 101 (38-126) U/L Albumin 4.2 (3.5-5.1) g/dL Urine 12/29/24 Range/Units 19:25 Urine Color Yellow (Yellow) Urine Appearance Clear (Clear) Urine pH 8.5 (5.0-9.0) Ur Specific [place] 1.020 (1.001-1.035) Urine Protein Negative (Negative) mg/dL Urine Glucose (UA) Negative (Negative) mg/dL Impressions Head CT 12/29/24 17:32 Impression: No acute intracranial hemorrhage or suspicious mass effect. Head/Cervical Spine/Facial Bones CT 12/29/24 17:34 Impression: Degenerative disease without acute displaced fracture in the cervical spine or facial bones. Head/Neck CTA 12/29/24 21:02 IMPRESSION: Percent stenosis per NASCET criteria is 0% on the right and 9% on the left. No large vessel occlusion. Assessment and Plan Assessment and plan (1) Amnesia: Code(s): R41.3 - Other amnesia Status: Acute (2) Hypertension: Code(s): I10 - Essential (primary) hypertension Status: Acute (3) Mixed hyperlipidemia: Code(s): E78.2 - Mixed hyperlipidemia Status: Acute (4) Ulcerative colitis: Onset Date: 2020 Code(s): K51.90 - Ulcerative colitis, unspecified, without complications Status: Acute (5) Stage 3b chronic kidney disease: Code(s): N18.32 - Chronic kidney disease, stage 3b Status: Acute Plan The patient presented to the emergency department for evaluation of an acute change in mental status with amnesia and short-term memory loss as detailed in HPI. Labs, imaging, EKG, and all reports were personally reviewed. Her symptoms and clinical presentation are suspicious for transient global amnesia however given her episode on Thursday, seizure is a possibility though seems less likely. Stroke also seems less likely however will obtain a brain MRI and echocardiogram for further workup. EEG has also been ordered and neurology has been consulted. Labs are stable compared to her baseline. Her vital signs are also stable. No recent issues regarding her inflammatory bowel disease. Her home medications will be reviewed and resumed as appropriate. Findings and treatment plan were discussed with the patient. Questions were solicited and answered to satisfaction. The patient's medical management will be taken over by the [facility] team in a.m. Quality VTE Prophylaxis VTE prophylaxis: mechanical ordered The patient has been admitted under observation status. Hospitalist [facility] Advance Care Plan I have confirmed that the patient's Advanced Care Plan is present, code status is documented, or surrogate decision maker is listed in patient medical record.: Yes Medication Reconciliation I have utilized all available resources to obtain, update and review the patients current medications (includes all prescriptions, OTC, herbals, cannabis, and nutritional supplements).: Yes
--- NOTE | 2024-12-29 22:32 | ADMGEN ---
This patient, Daphne Garrison, was admitted to Medical Room 348-01. Patient/family oriented to hospital policies and general routines including ID bracelet, bed and alarms, visiting hours, pain management, procedures, bathroom and other care routines, personal items, smoking policy, room service/diet, and visiting hours. Information on how to activate the Rapid Response Team has been discussed. Patient/Family are encouraged to report perceived risks to care and to ask questions if they do not understand what they are told or what they should do.
[2024-12-29 23:59] VITALS: BMI 35.2
[2024-12-30] VITALS (15 sets, daily range): BP systolic 120–177; BP diastolic 58–78; PULSE 60–87; RESP 16–20; TEMP 36.1–36.3; O2SAT 96–100
[2024-12-30 06:03] LABS: Anion Gap 6 mmol/L (4-12); Blood Urea Nitrogen 22 mg/dL (7-17); Calcium 9.2 mg/dL (8.4-10.2); Carbon Dioxide 28 mmol/L (22-30); Chloride 104 mmol/L (98-107); Estimated CRCL calculation 40 ml/min; Estimated Glomerular Filt Rate > 60; Glucose 101 mg/dL (65-110); Magnesium 2.2 mg/dL (1.6-2.3); Potassium 3.9 mmol/L (3.4-5.0); Sodium 138 mmol/L (137-145)
[2024-12-30 06:40] LABS: Thyroid Stimulating Hormone Reflex 0.922 uIU/mL (0.465-4.68)
--- NOTE | 2024-12-30 08:10 | PM.IMPN ---
Progress Note: A&P Assessment and Plan (1) Amnesia: Code(s): R41.3 - Other amnesia Status: Acute Assessment and Plan: Patient had a fall on Tuesday 12/26 resulting in a black eye. Unknown if lost consciousness. Following the fall she was in her usual state of health however on 12/30 at approximately 1500 she became increasingly confused and forgetful. Her symptoms and clinical presentation are suspicious for transient global amnesia however given her episode on Thursday, seizure is a possibility though seems less likely. EEG has been ordered. Stroke also seems less likely however will obtain a brain MRI and echocardiogram for further workup. - Labs without leukocytosis, UA unremarkable - Lipid panel WNL, remains on atorvastatin 20 mg daily - Head CT showed no acute intracranial hemorrhage or suspicious mass effect. - Cervical spine and facial bone CT was without acute findings. - CTA of the head and neck showed no large vessel occlusion and 9% stenosis of the left internal carotid artery. - MRI showed mild chronic microvascular ischemic changes and mild generalized atrophy, otherwise no acute abnormality. - Echo showed LVEF of 60-65% with abnormal diastolic function. No pulmonary hypertension noted. - EEG ordered - ED physician spoke with the on-call neurologist who recommended starting the patient on aspirin and clopidogrel pending brain MRI. Plavix 75 mg daily and 81 mg aspirin daily - Initiate stroke protocol, NIH Stroke Scale, neuro's q.4 hours - Monitor CBC, CMP, magnesium, troponin, and lipid profile - Monitor blood pressure, allow for permissive hypertension. - Telemetry monitoring - Monitor blood glucose - PT/OT eval and treat - Neurology consulted, appreciate assistance and recommendations AOx4 during assessment. Normal neuro exam. (2) Hypertension: Code(s): I10 - Essential (primary) hypertension Status: Acute Assessment and Plan: Chronic - metoprolol 50 mg BID - Blood pressures remains stable, continue to monitor (3) Mixed hyperlipidemia: Code(s): E78.2 - Mixed hyperlipidemia Status: Acute Assessment and Plan: Lipid panel WNL Remains on atorvastatin 20 mg daily at this time (4) Ulcerative colitis: Onset Date: 2020 Code(s): K51.90 - Ulcerative colitis, unspecified, without complications Status: Acute Assessment and Plan: Chronic. Not in acute exacerbation. (5) Stage 3b chronic kidney disease: Code(s): N18.32 - Chronic kidney disease, stage 3b Status: Acute Assessment and Plan: BUN/Cr 25/1.08 on admission, appears at baseline -avoid nephrotoxic medications -renally dose medications -monitor intake and output Time Spent With Patient Time with patient: 25 - 35 minutes Subjective Date/time seen: 12/30/24 08:10 Interval history: 79-year-old female with history of hypertension, hyperlipidemia, and ulcerative colitis on Entyvo and mesalamine who presented to the hospital for evaluation of altered mental status. Patient is pleasant lying comfortably in bed. She is alert oriented x4 at time of assessment and states that she is remembering more and more of the past few days. She has no complaints denying chest pain, shortness a breath, palpitations, nausea/vomiting, abdominal pain, dizziness/lightheadedness, and tingling/numbness. Review of Systems Review of Systems: All systems reviewed & are unremarkable except as noted in HPI and below Exam Narrative: AF HR 64 RR 20 SPO2 98 BP 147/77 General: female in no acute respiratory distress who is nontoxic appearing, lying semi recumbent in bed. HEENT: Normocephalic. Atraumatic. Extraocular movement intact. Sclera clear and anicteric. No facial asymmetry. Chest: Lungs are clear to auscultation bilaterally. No wheezes or crackles. CV: Heart was regular rate and rhythm. Abd: Abdomen was soft. Nontender. Nondistended. Positive bowel sounds. Ext: No clubbing, cyanosis, or edema. DP pulses bilaterally. Neuro: Patient is alert and oriented x4. Able to name 5 animals and 5 colors. No upper extremity drift. Strength is 5/5 in both upper and lower extremities with push and pulls. Cranial nerves 2-12 are intact. Speech is clear. Objective Data Vital Signs Vital Signs: Vital Signs - 24 hr 12/29/24 16:57 12/29/24 21:47 12/29/24 22:37 Temperature 98.2 F Pulse Rate 73 66 Respiratory Rate 16 15 Blood Pressure 151/80 H 164/84 H Pulse Oximetry 100 98 Oxygen Delivery Room Air Room Air 12/30/24 00:00 12/30/24 00:02 12/30/24 00:56 Temperature 97.1 F L 97.3 F L Pulse Rate 66 66 64 Respiratory Rate 20 20 Blood Pressure 177/72 H 153/78 H Pulse Oximetry 99 100 Oxygen Delivery 12/30/24 01:05 12/30/24 01:10 12/30/24 04:00 Temperature 97.3 F L 97.4 F L Pulse Rate 63 71 65 Respiratory Rate 20 20 Blood Pressure 151/72 H 158/76 H Pulse Oximetry 98 98 Oxygen Delivery 12/30/24 06:00 Temperature 97.0 F L Pulse Rate 64 Respiratory Rate 20 Blood Pressure 157/77 H Pulse Oximetry 98 Oxygen Delivery Intake/Output Intake/Output: Intake & Output 12/27/24 12/28/24 12/29/24 12/30/24 23:59 23:59 23:59 23:59 Intake Total 500 Output Total 400 1800 Balance -400 -1300 Meds/Results Medications: Active Medications Generic Name Dose Route Start Last Admin Trade Name Freq PRN Reason Stop Dose Admin Acetaminophen 650 mg 12/29/24 21:24 Acetaminophen 325 Mg Tablet PO Q4H PRN Mild Pain (1-3) or Fever Aspirin 81 mg 12/30/24 08:00 Aspirin 81 Mg Chewable Tablet PO DAILY@0800 [facility] Atorvastatin Calcium 20 mg 12/30/24 09:00 Atorvastatin 20 Mg Tablet PO DAILY [facility] Celecoxib 200 mg 12/30/24 08:00 Celecoxib 200 Mg Capsule PO DAILY@0800 [facility] Clopidogrel Bisulfate 75 mg 12/30/24 09:00 Clopidogrel Bisulfate 75 Mg Tablet PO QAM [facility] Duloxetine HCl 60 mg 12/30/24 09:00 Duloxetine Hcl 60 Mg Capsule. PO QAM [facility] Mesalamine 1,200 mg 12/30/24 09:00 Mesalamine 400 Mg Delayed Release Capsule PO Q12HR [facility] Metoprolol Tartrate 50 mg 12/30/24 09:00 Metoprolol Tartrate 50 Mg Tab BY MOUTH Q12HR [facility] Multivitamins Therapeutic 1 tablet 12/30/24 09:00 Multivitamins Therapeutic Tab (*Bkc) PO DAILY [facility] Ondansetron HCl 4 mg 12/29/24 21:24 Ondansetron Inj 4 Mg/2 Ml Vial IV PUSH Q4H PRN Nausea Perflutren Lipid Microsphere 0 ml 12/29/24 23:40 Perflutren Lipid Microspheres 1.5 Ml Vial Diluted To 10 Ml Total Volume IV PUSH 01/01/25 23:40 ONCE PRN adequate visualization Protocol Pimecrolimus 1 applic 12/30/24 03:37 Pimecrolimus 1% 30 Gm Cream TOPICAL DAILY PRN Rash Radiology Results: ITS Impressions Head CT 12/29/24 17:32 Impression: No acute intracranial hemorrhage or suspicious mass effect. Head/Cervical Spine/Facial Bones CT 12/29/24 17:34 Impression: Degenerative disease without acute displaced fracture in the cervical spine or facial bones. Head/Neck CTA 12/29/24 21:02 IMPRESSION: Percent stenosis per NASCET criteria is 0% on the right and 9% on the left. No large vessel occlusion. Labs Labs: Laboratory Results - last 24 hr 12/29/24 12/29/24 12/29/24 17:35 18:40 19:25 WBC 8.7 RBC 4.20 Hgb 11.9 L Hct 37.6 MCV 89.5 MCH 28.3 MCHC 31.6 L RDW 13.5 Plt Count 241 MPV 9.0 Immature Gran % (Auto) 0.2 Neut % (Auto) 76.1 H Lymph % (Auto) 11.5 L Toole % (Auto) 9.5 H Eos % (Auto) 2.2 Baso % (Auto) 0.5 Lymph # (Auto) 1.00 Toole # (Auto) 0.8 H Eos # (Auto) 0.2 Baso # (Auto) 0.0 Abs Immat Gran (auto) 0.02 Absolute Neuts (auto) 6.6 Absolute Nucleated RBC 0.000 Nucleated RBC % 0.0 PT 13.3 INR 1.0 APTT 28.8 Sodium 138 Potassium 4.1 Chloride 101 Carbon Dioxide 30 Anion Gap 7 BUN 25 H D Creatinine 1.08 H Estim Creat Clear Calc 41 Estimated GFR 49 L Glucose 109 POC Capillary Glucose 100 Calcium 9.4 Magnesium Total Bilirubin 0.4 AST 27 ALT 19 Alkaline Phosphatase 101 Total Protein 8.0 Albumin 4.2 Vitamin B12 TSH (Reflex) Urine Color Yellow Urine Appearance Clear Urine pH 8.5 Ur Specific [place] 1.020 Urine Protein Negative Urine Glucose (UA) Negative Urine Ketones Negative Ur Blood (Man) Negative Urine Nitrate Negative Urine Bilirubin Negative Urine Urobilinogen 0.2 Leukocyte Esterase Rfl Negative 12/29/24 12/30/24 19:34 05:32 WBC RBC Hgb Hct MCV MCH MCHC RDW Plt Count MPV Immature Gran % (Auto) Neut % (Auto) Lymph % (Auto) Toole % (Auto) Eos % (Auto) Baso % (Auto) Lymph # (Auto) Toole # (Auto) Eos # (Auto) Baso # (Auto) Abs Immat Gran (auto) Absolute Neuts (auto) Absolute Nucleated RBC Nucleated RBC % PT INR APTT Sodium 138 Potassium 3.9 Chloride 104 Carbon Dioxide 28 Anion Gap 6 BUN 22 H Creatinine 0.89 Estim Creat Clear Calc 40 Estimated GFR > 60 Glucose 101 POC Capillary Glucose 82 Calcium 9.2 Magnesium 2.2 Total Bilirubin AST ALT Alkaline Phosphatase Total Protein Albumin Vitamin B12 640.0 TSH (Reflex) 0.922 Urine Color Urine Appearance Urine pH Ur Specific [place] Urine Protein Urine Glucose (UA) Urine Ketones Ur Blood (Man) Urine Nitrate Urine Bilirubin Urine Urobilinogen Leukocyte Esterase Rfl Quality VTE Prophylaxis VTE prophylaxis: mechanical ordered
[2024-12-30 08:53] LABS: Basophils Percent Auto 0.5 % (0.2-1.2); Eosinophils Absolute Auto 0.2 K/mm3 (0-0.3); Eosinophils Percent Auto 2.8 % (0-4.4); Hematocrit 36.7 % (37.0-47.0); Hemoglobin 11.6 g/dL (12.0-15.0); Immature Granulocyte Absolute 0.03 K/mm3 (0.00-0.031); Immature Granulocyte Percent A 0.4 % (0-0.5); Lymphocytes Absolute Auto 1.29 K/mm3 (0.9-3.2); Lymphocytes Percent Auto 16.6 % (18.3-44.2); Mean Corpuscular HGB Conc 31.6 g/dl (32-36); Mean Corpuscular Hemoglobin 28.4 pg (26-34); Mean Corpuscular Volume 89.7 fl (80-100); Mean Platelet Volume 9.5 fl (7.4-10.4); Monocytes Absolute Auto 0.9 K/mm3 (0.1-0.6); Monocytes Percent Auto 12.1 % (2.6-8.5); Neutrophils Absolute Auto 5.2 K/mm3 (1.3-6.7); Neutrophils Percent Auto 67.6 % (45.5-73.1); Platelet Count Result 231 k/mm3 (150-375); Red Blood Count 4.09 M/mm3 (4.2-5.4); Red Cell Distribution Width 13.5 % (11.5-14.5); White Blood Count 7.8 K/mm3 (4.5-10.0)
[2024-12-30 08:59] LABS: Cholesterol 124 mg/dL (0-200); HDL Direct 58 mg/dL; Triglycerides 118 mg/dL (<150)
[2024-12-30 09:10] LABS: LDL Cholesterol Direct 32 mg/dL
[2024-12-30] MEDS: DULoxetine HCL 60 MG CAPSULE.DR PO (09:55)
[2024-12-30] MEDS: ASPIRIN 81 MG CHEWABLE TABLET PO (09:55)
[2024-12-30] MEDS: ATORVASTATIN 20 MG TABLET PO (09:56)
[2024-12-30] MEDS: CLOPIDOGREL BISULFATE 75 MG TABLET PO (09:56)
[2024-12-30] MEDS: METOPROLOL TARTRATE 50 MG TAB BY MOUTH ×2 (09:56→20:38)
[2024-12-30] MEDS: MULTIVITAMINS THERAPEUTIC TAB (*BKC) 1 TABLET PO (09:56)
[2024-12-30] MEDS: CELECOXIB 200 MG CAPSULE PO (09:56)
[2024-12-30] MEDS: MESALAMINE 400 MG DELAYED RELEASE CAPSULE 1200 MG PO ×2 (09:57→20:39)
[2024-12-30] MEDS: ACETAMINOPHEN 325 MG TABLET 650 MG PO ×2 (10:06→16:02)
--- NOTE | 2024-12-30 23:40 | ECHO_ITS ---
Patient Info Name: Daphne Garrison Age: 79 years : 1945 Gender: Female Ht: 65 in Wt: 206 lbs BSA: 2.11 m2 HR: 58 bpm BP: 157 / 77 mmHg Technical Quality: Good Exam Date: 12/30/2024 11:17 AM Exam Location: Echo Lab Patient Status: Inpatient Admit Date: 12/30/2024 Staff Ordering Physician: Jerri Flores PA-C Cafe Lead: Denisha Lopez RDCS Attending Provider: Jerri Flores PA-C Referring Physician: Mark MONGE; Exam Type: CA echo doppler w bubble study Study Info Indications - Possible syncope - Amnesia Complete two-dimensional, color flow and Doppler transthoracic echocardiogram is performed with agitated saline. Contrast/Agitated Saline Contrast/Ag. Saline: Agitated Saline Amount: 12.00 ml Existing IV Access: Yes IV Access Condition: patent with no signs of infiltration Summary 1. Left ventricular chamber dimension is normal. 2. Left ventricular systolic function is normal, estimated at 60-65%. 3. The left ventricular diastolic function is abnormal. 4. E/e' 14 is mildly elevated. 5. Left atrial chamber dimension is mildly enlarged. 6. There is mild aortic valve sclerosis. 7. There is mild mitral valve regurgitation. 8. There is trace tricuspid valve regurgitation. 9. No pulmonary hypertension, estimated pulmonary arterial systolic pressure is 30 mmHg. Left Ventricle E/e' 14 is mildly elevated. Left ventricular chamber dimension is normal. Left ventricular systolic function is normal, estimated at 60-65%. The left ventricular diastolic function is abnormal. Right Ventricle Right ventricular systolic function is normal and with normal TAPSE 1.9 cm. Right ventricular chamber dimension is normal. Left Atria Left atrial chamber dimension is mildly enlarged. Right Atria Right atrial chamber dimension is normal. Atrial Septum Agitated saline injection with and without valsalva maneuver opacified right side cardiac chambers without shunt to left side cardiac chambers. Intact interatrial septum visualized by 2D and agitated saline imaging. Aortic Valve The aortic valve is trileaflet. There is mild aortic valve sclerosis. There is no aortic valve stenosis. There is no aortic valve regurgitation. Pulmonic Valve There is no pulmonic regurgitation. Mitral Valve There is no mitral valve stenosis. There is mild mitral valve regurgitation. Tricuspid Valve There is trace tricuspid valve regurgitation. No pulmonary hypertension, estimated pulmonary arterial systolic pressure is 30 mmHg. Pericardium/Pleural There is no pericardial effusion. Inferior Vena Cava Normal inferior vena cava with >50% collapse upon inspiration consistent with normal right atrial pressure, 5 mmHg. Aorta The aortic root size at the sinus of Valsalva is normal. Left Ventricular Outflow Tract Name Value Normal LVOT 2D LVOT Diameter 1.9 cm LVOT Doppler LVOT Peak Gradient 5 mmHg LVOT Mean Gradient 3 mmHg LVOT VTI 26 cm LVOT VTI/AV VTI Ratio 0.8 LVOT Stroke Volume 74 ml LVOT CO 13.5 l/min LVOT CI 6.4 l/min/m2 Pulmonic Valve Name Value Normal PV Doppler PV Peak Gradient 4 mmHg Mitral Valve Name Value Normal MV Doppler MV Decel Davison 397 cm/s2 MV PHT 54 ms MV Area (PHT) 4.1 cm2 4.0-5.0 MV Diastolic Function MV E Peak Velocity 73 cm/s MV A Peak Velocity 86 cm/s MV E/A 0.9 MV Decel Time 185 ms MV Annular TDI MV E/e' (Septal) 17.9 <=8.0 MV E/e' (Lateral) 12.1 <=8.0 MV E/e' (Average) 15.0 Tricuspid Valve Name Value Normal TV Regurgitation Doppler TR Peak Velocity 248 cm/s TR Peak Gradient 19 mmHg Estimated PAP/RSVP RA Pressure 5 mmHg <=5 PA Systolic Pressure 30 mmHg <36 RV Systolic Pressure 30 mmHg <36 Aorta Name Value Normal Ascending Aorta Ao Root Diameter (MM) 3.3 cm Ao Root Diam Index (MM) 1.6 cm/m2 Aortic Valve Name Value Normal AV Doppler AV Peak Velocity 125 cm/s AV Peak Gradient 6 mmHg AV Mean Gradient 4 mmHg AV VTI 31 cm AV Area (Cont Eq VTI) 2.4 cm2 >=3.0 AV Area (Cont Eq Antonio) 2.5 cm2 AV Regurgitation 2D LVOT Area 2.9 cm2 Ventricles Name Value Normal LV Dimensions 2D/MM IVS Diastolic Thickness (2D) 1.1 cm 0.6-1.0 LVID Diastole (2D) 4.2 cm 3.8-5.2 LVIW Diastolic Thickness (2D) 1.0 cm 0.6-0.9 LVID Systole (2D) 2.5 cm 2.2-3.5 LVOT Diameter 1.9 cm LV Mass (2D Cubed) 150.42 g 67.00-162.00 LV Mass Index (2D Cubed) 71 g/m2 43-95 Relative Wall Thickness (2D) 0.48 LV Fractional Shortening/Ejection Fraction 2D/MM LV Fractional Shortening (2D) 40 % 27-45 LV EF (2D Teicholz) 71 % 54-74 LV Diastolic Volume (4C MOD) 66 ml LV EF (4C MOD) 46 % LV Diastolic Volume (2C MOD) 56 ml LV EF (2C MOD) 52 % LV Diastolic Volume (BP MOD) 62 ml 46-106 LV Diastolic Volume Index (BP MOD) 29 ml/m2 29-61 LV Systolic Volume (BP MOD) 33 ml 14-42 LV Systolic Volume Index (BP MOD) 16 ml/m2 8-24 LV EF (BP MOD) 46 % 54-74 LV Diastolic Length (4C) 6.5 cm LV Systolic Length (4C) 5.8 cm LV Stroke Volume (4C MOD) 30 ml RV Dimensions 2D/MM RVID Diastole (2D) 3.6 cm 2.5-3.5 Atria Name Value Normal LA Dimensions LA Dimension (MM) 3.9 cm 2.7-3.8 LA Volume (4C A-L) 55 ml LA Volume (BP A-L) 54 ml RA Dimensions RA Area (4C) 16.7 cm2 <=18.0 Report Signatures
[2024-12-31] VITALS (7 sets, daily range): BP systolic 105–113; BP diastolic 58–61; PULSE 59–80; RESP 16; TEMP 36.3–36.5; O2SAT 93–100
[2024-12-31 06:02] LABS: Hematocrit 37.2 % (37.0-47.0); Hemoglobin 11.7 g/dL (12.0-15.0); Mean Corpuscular HGB Conc 31.5 g/dl (32-36); Mean Corpuscular Hemoglobin 28.5 pg (26-34); Mean Corpuscular Volume 90.5 fl (80-100); Mean Platelet Volume 9.1 fl (7.4-10.4); Platelet Count Result 244 k/mm3 (150-375); Red Blood Count 4.11 M/mm3 (4.2-5.4); Red Cell Distribution Width 13.9 % (11.5-14.5); White Blood Count 6.6 K/mm3 (4.5-10.0)
[2024-12-31 06:12] LABS: Alanine Aminotransferase 18 U/L (6-35); Alkaline Phosphatase 74 U/L (38-126); Anion Gap 7 mmol/L (4-12); Aspartate Amino Transferase 26 U/L (14-36); Bilirubin,Total 0.6 mg/dL (0.2-1.3); Blood Urea Nitrogen 24 mg/dL (7-17); Calcium 9.1 mg/dL (8.4-10.2); Carbon Dioxide 26 mmol/L (22-30); Chloride 106 mmol/L (98-107); Estimated CRCL calculation 46 ml/min; Estimated Glomerular Filt Rate 55; Glucose 100 mg/dL (65-110); Potassium 4.2 mmol/L (3.4-5.0); Sodium 139 mmol/L (137-145)
[2024-12-31] MEDS: METOPROLOL TARTRATE 50 MG TAB BY MOUTH (09:37)
[2024-12-31] MEDS: CELECOXIB 200 MG CAPSULE PO (09:38)
[2024-12-31] MEDS: MULTIVITAMINS THERAPEUTIC TAB (*BKC) 1 TABLET PO (09:38)
[2024-12-31] MEDS: CLOPIDOGREL BISULFATE 75 MG TABLET PO (09:38)
[2024-12-31] MEDS: MESALAMINE 400 MG DELAYED RELEASE CAPSULE 1200 MG PO (09:38)
[2024-12-31] MEDS: ATORVASTATIN 20 MG TABLET PO (09:38)
[2024-12-31] MEDS: DULoxetine HCL 60 MG CAPSULE.DR PO (09:38)
[2024-12-31] MEDS: ASPIRIN 81 MG CHEWABLE TABLET PO (09:39)
--- NOTE | 2024-12-31 15:17 | P.DS_ITS ---
DS: Admitting Diagnosis Discharge Date 12/31/2024 Admitting Diagnosis Amnesia Hypertension Hyperlipidemia Ulcerative colitis Stage IIIB CKD DS: Discharge Diagnosis Discharge Diagnosis (1) Amnesia: Code(s): R41.3 - Other amnesia Status: Acute (2) Hypertension: Code(s): I10 - Essential (primary) hypertension Status: Acute (3) Mixed hyperlipidemia: Code(s): E78.2 - Mixed hyperlipidemia Status: Acute (4) Ulcerative colitis: Onset Date: 2020 Code(s): K51.90 - Ulcerative colitis, unspecified, without complications Status: Acute (5) Stage 3b chronic kidney disease: Code(s): N18.32 - Chronic kidney disease, stage 3b Status: Acute DS: Summary Hospital Course Reason for hospitalization: Amnesia Hypertension Hyperlipidemia Ulcerative colitis Stage IIIB CKD Hospital Course: 79-year-old female with history of hypertension, hyperlipidemia, and ulcerative colitis on Entyvo and mesalamine who presented to the hospital for evaluation of altered mental status. Patient had a fall on Tuesday 12/26 resulting in a black eye. Unknown if lost consciousness. Following the fall she was in her usual state of health however on 12/30 at approximately 1500 she became increasingly confused and forgetful. Since admission patient has returned to her baseline mentation. Neurology consulted. Patient started on aspirin and plavix. Lipid panel WNL, remains on home atorvastatin. Head CT showed no acute intracranial hemorrhage or suspicious mass effect. Cervical spine and facial bone CT was without acute findings. CTA of the head and neck showed no large vessel occlusion and 9% stenosis of the left internal carotid artery. MRI showed mild chronic microvascular ischemic changes and mild generalized atrophy, otherwise no acute abnormality. Echo showed LVEF of 60-65% with abnormal diastolic function, no pulmonary hypertension noted. EEG showed mild focal slowing and sharp transients over the left temporal area. Per neurology this may be nonspecific however possible that temporal lobe dysfunction with this occurred due to ischemia or electrical abnormality such as a partial complex seizure. No antiseizure medications required at this time per neurology. Patient remains on statin, plavix and asa at time of discharge. Per neurology patient able to be discharged at this time. At time of discharge patient has no complaints denying chest pain, shortness a breath, palpitations, nausea/vomiting, abdominal pain, dizziness/lightheadedness, and tingling/numbness/weakness to any extremities. Patient discharged home with family in a stable condition. She is to follow up with her primary care provider in 1 week and Neurology as scheduled.. Status at Discharge Functional status at discharge: independent ambulation Time Spent with Patient Time attestation: Total time spent providing and/or coordinating discharge services: Time spent: Greater than 30 minutes Exam Narrative: AF HR 65 RR 16 SpO2 100 BP 105/61 General: female in no acute respiratory distress who is nontoxic appearing, lying semi recumbent in bed. HEENT: Normocephalic. Atraumatic. Extraocular movement intact. Sclera clear and anicteric. No facial asymmetry. Chest: Lungs are clear to auscultation bilaterally. No wheezes or crackles. CV: Heart was regular rate and rhythm. Abd: Abdomen was soft. Nontender. Nondistended. Positive bowel sounds. Ext: No clubbing, cyanosis, or edema. DP pulses bilaterally. Neuro: Patient is alert and oriented x4. Able to name 5 animals and 5 colors. No upper extremity drift. Normal [id number]. Strength is 5/5 in both upper and lower extremities with push and pulls. Cranial nerves 2-12 are intact. Speech is clear. DS: Data Data Completed and Pending Completed studies during hospitalization: Head neck CTA Head CT Brain MRI Head/cervical spine/facial bone CT Labs on day of discharge: Labs from last 24 hours 12/31/24 05:50 WBC 6.6 RBC 4.11 L Hgb 11.7 L Hct 37.2 MCV 90.5 MCH 28.5 MCHC 31.5 L RDW 13.9 Plt Count 244 MPV 9.1 Sodium 139 Potassium 4.2 Chloride 106 Carbon Dioxide 26 Anion Gap 7 BUN 24 H Creatinine 0.97 Estim Creat Clear Calc 46 Estimated GFR 55 L Glucose 100 Calcium 9.1 Total Bilirubin 0.6 AST 26 ALT 18 Alkaline Phosphatase 74 Total Protein 7.0 Albumin 4.0 Discharge Plan Discharge Attending physician on discharge: Carl Up Consulting providers: Jo Cleveland Discharging Clinician: Jerri Flores Anticipated Discharge Date/Time: 12/31/24 12:20 Patient Disposition: Home, Self-Care Activity: as tolerated Diet: as tolerated and heart healthy Discharge Instructions: Discharge disposition: Patient admitted to the hospital for transient global amnesia after a fall Imaging unremarkable Evaluated by Neurology Take all medications as prescribed even if feeling better Started on aspirin and Plavix, attached is information on these medications Hold celebrex until follow up with PCP as this increases bleeding risks when taken with aspirin and plavix Strict bleeding precautions since you are being started on Plavix including shaving with an electric razor, holding pressure for greater than 20 minutes for injury, protection of had with any falls, etc. Eat well balanced meals and stay hydrated Follow-up with neurology, call for appointment Monitor blood pressures Take caution while standing, rising, or moving Change positions slowly taking a break between each position change If you standing feel dizzy sit back down and take a break Encouraged to continue with yearly vaccinations Return to the emergency department if he developed sudden shortness of breath, chest pain, nausea, vomiting, upset stomach or intractable diarrhea Return to the emergency department if you develop fever greater than 101.5 Follow-up with the primary care physician within 1-2 weeks Thank you for choosing [facility] for your healthcare needs Patient Instructions: Aspirin (By mouth), Clopidogrel (By mouth), Transient Ischemic Attack (DC), Transient Global Amnesia (ED) Patient Language: Czech Stand Alone Forms: General Discharge Information Follow-up/Referrals: Jo Cleveland MD [Physician] - Call for Appointment Elmer Alva MD [Primary Care Provider] - 1 Week Discharge Medications: New clopidogrel 75 mg Tablet 75 mg PO QAM Qty: 30 0RF aspirin [Children's Aspirin] 81 mg Tablet,Chewable 81 mg PO DAILY@0800 Qty: 30 0RF Continued Entyvio 300 mg recon soln 300 mg IV .every 8 weeks Rx Instructions: administer over 30 mins mesalamine 400 mg capsule (with del rel tablets) 1,200 mg PO BID 30 Days Qty: 180 5RF multivitamin Tablet 1 tablet PO DAILY pimecrolimus 1 % cream 1 applic topical DAILY PRN (Reason: Rash) duloxetine 60 mg capsule,delayed release(DR/EC) 60 mg PO QAM Qty: 90 2RF metoprolol tartrate 50 mg tablet See Rx Instructions .ROUTE .COMPLEX Qty: 180 2RF Dose Instruction: TAKE 1 TABLET BY MOUTH TWICE A DAY Rx Instructions: TAKE 1 TABLET BY MOUTH TWICE A DAY atorvastatin 20 mg tablet 20 mg PO DAILY Qty: 90 2RF Held celecoxib 200 mg capsule 200 mg PO DAILY Qty: 90 2RF Hold Instructions: Resume on 02/08/25. Hold until follow up with PCP. Date of admission: 12/30/24 07:32 Primary Care Provider: Elmer Alva Admitting Provider: Carl Up Attending physician on admission: Jerri Flores Condition: Stable Hospitalist MIPS Heart Failure (Exclusion) Patient has history of Heart Transplant or Left Ventricular Assistive Device?: No IF YES, STOP HERE Heart Failure (Qualifier) Patient has current or prior documentation of LVEF less than or equal to 40%, or mod/servere depressed LVSF?: No IF NO, STOP HERE
--- NOTE | 2024-12-31 15:19 | P.NEURO_ITS ---
Neurology EEG Report General Information Date of Study: 12/30/24 TEST electroencephalogram DIAGNOSIS Altered mental status CONDITION OF RECORDING bedside recording EEG NUMBER 25-53 CLINICAL HISTORY history of sudden loss of memory starting on 12/29/2024 EEG DESCRIPTION During wakefulness the background activity consists of posterior dominant alpha rhythm at 9 hertz with an amplitude of 25-50 microvolts which appears well- formed and reactive to eye opening. Anteriorly low amplitude mixed frequency activity was seen. There is a good anteroposterior gradient. Hyperventilation or photic stimulation were not performed. Occasional focal slowing and sharp activity was noted over the left temporal area. IMPRESSION Mild abnormal EEG due to presence of focal slowing and sharp wave activity over the left temporal area. Focal slowing may raise possibility of underlying structural lesion. Sharp transients are considered nonspecific focal interictal abnormality. Such abnormalities may be seen in many elderly subjects hence clinical and if necessary radiographic correlation may be helpful
--- NOTE | 2024-12-31 15:23 | P.CONNEU_ITS ---
Assessment and Plan Assessment and plan (1) Transient global amnesia: Code(s): G45.4 - Transient global amnesia Status: Acute Assessment and Plan: The differential diagnosis will include possibility of transient ischemic attack or cerebrovascular disease versus partial complex seizures. Patient has however improved. She did have a head trauma 3 days prior to this episode. The causal relationship is difficult to establish. EEG shows mild focal slowing and sharp transients over the left temporal area. This may be consider nonspecific abnormality get in her age group nevertheless her symptoms are suggestive of temporal lobe dysfunction with this occurred due to ischemia or electrical abnormality such as a partial complex seizure will require some follow-up. She has any further spells I have advised her to give me a call and I would see her again in the meanwhile we can keep her on aspirin, Plavix and Lipitor for 3 months and after that she can go down to 1 of the 2 antiplatelets. Her LDL is 32. MRI of the brain did not show any significant abnormality. CT scan of the brain and CT angiogram head and neck were also reviewed which did not show any significant abnormality. Echocardiogram Did not show any significant abnormal findings. Her GFR is 55 and her B12 level is normal. Her pointed out that in the last 2 months he sometimes has difficulty finding the right words. On that account of they would like to see me again for follow-up in my office I shall be glad to do so. However there has not been any consistent pattern of memory loss according to the family members. (2) Hypertension: Code(s): I10 - Essential (primary) hypertension Status: Acute (3) Ulcerative colitis: Onset Date: 2020 Code(s): K51.90 - Ulcerative colitis, unspecified, without complications Status: Acute (4) Stage 3b chronic kidney disease: Code(s): N18.32 - Chronic kidney disease, stage 3b Status: Acute (5) Anemia: Code(s): D64.9 - Anemia, unspecified Status: Chronic Plan As discussed above if she has any further spells of memory loss or any neurologic event I would like to see her for follow-up in my office otherwise he may continue the current medications and go down to 1 of the 2 antiplatelets after 3 months and stay on statin depending upon her lipid profile. This can be done done through her primary care provider however I shall be glad to see her in my office if the would like to see me. Her did express some concern regarding word-finding difficulty in the last 2 months and if this continues I would like to see her again. Consult date: 12/31/24 HPI: Daphne Garrison is a 79 year old female with history of having an accidental fall on Thursday 3 days prior to presentation to the emergency room however she had some bruising around the right eye but no other sequela. On or 12/29/2024 around 3:00 p.m. she suddenly appeared to have difficulty remembering according to her son and . She was repeat issues and ask the same question over and over again. Her son told me that she had to said the same thing nearly 5 times in a minute which was unusual. This pattern continued and she was subsequently brought to the emergency room. ER physician felt that she has transient global amnesia since there are no other deficit. She knew her family members and many other things but she could not grasp or remember any of the new information and kept asking the same thing over and over again. According to the patient patient does not even remember being brought to the hospital having gone through the testing. He does not tell 10:00 p.m. she started to have some memory back but on the day after which was Thursday she still was not completely back to normal. . I saw her on Thursday which is 12/31/2024 she feels she is back to normal and family agrees with the same. She never had any spells such as this in the past. At this time she denies any headache nausea vomiting or any other weakness in upper lower limbs. I saw her walking around the floor when I 1st came to see her. She is anxious to go home. Data noted the see has history of hypertension, hyperlipidemia and ulcerative colitis.. She underwent CT scan of the brain and CT angiogram head and neck in the emergency room which did not show any significant abnormalities. Review of Systems 2 Constitutional: Constitutional: Reports as per HPI and Reports no additional constitutional complaints Eyes: Eyes: Reports as per HPI and Reports no additional eye complaints ENT: Reports system reviewed and no additional complaints, except as documented Cardiovascular: Cardiovascular: Reports as per HPI and Reports no additional cardiovascular complaints Respiratory: Respiratory: Reports as per HPI and Reports no additional respiratory complaints Gastrointestinal: Comments: History of ulcerative colitis currently controlled Genitourinary: Genitourinary: Reports no additional female genitourinary complaints Musculoskeletal: Musculoskeletal: Reports no additional musculoskeletal complaints Integumentary/Breasts: Skin/Breast: Reports system reviewed and no additional complaints, except as docu Neurologic: Reports system reviewed and no additional complaints, except as documented Psychiatric: Psychiatric: Reports no additional psychiatric complaints [facility] Past Medical History Medical History (Updated 12/31/24 @ 07:45 by Elmer Alva MD) Stage 3b chronic kidney disease Degenerative disc disease Pseudopolyp of descending colon Obesity Hypertension Positive QuantiFERON-TB Gold test COVID-19 Ulcerative colitis (2020) Mixed hyperlipidemia Major depressive disorder, recurrent, mild Overactive bladder Arthritis Psoriasis Anemia Surgical History Surgical History (Updated 12/30/24 @ 03:34 by Rocío Cruz PA-C) History of bladder suspension procedure (2008) History of cataract extraction History of bladder repair surgery History of hemorrhoidectomy Excisional hemorrhoidectomy x3 on 08/03/23 SAW History of arthroscopy of left knee (2017) History of hysterectomy with bilateral oophorectomy (2008) History of right knee joint replacement (04/2021) History of laminectomy History of left knee replacement (12/2011) Family History Family History Mother Leukemia Father Heart attack Depression Sibling Heart abnormality Social History Social History (Updated 12/30/24 @ 03:35 by Rocío Cruz PA-C) Social History: Surrogate medical decision maker: Steve Garrison, spouse. Code status: Full code. Smoking packs per day: 1 Smoking cigarettes per day: 20.0 Years smoked: 25 Smoking pack-years: 25.00 Smoking status: Former smoker Tobacco type: cigarettes Second hand tobacco smoke exposure: No Smoking end date: 10/12/08 Alcohol intake: never Substance use: never Substance use type: does not use Do You Feel Safe in your Home?: Yes Lack of Transportation: No Lack of Food: Never True Current Housing: I Have Housing Concerned About Future Housing: No Difficulty Paying Gas/Electric Bills: No Difficulty Paying for Meds: No Currently Unemployed: No Education: Bachelor's Degree Difficulty w/ Childcare or Family Care: No Living arrangements: with family Additional living arrangements comments: Lives with spouse in [place]. Spiritual care concerns: No Agree to blood products: Yes Meds Home Medications and Allergies Home Medications ?Medication ?Instructions ?Recorded ?Confirmed ?Type multivitamin 1 tablet PO DAILY 01/15/21 12/29/24 History vedolizumab 300 mg intravenous 300 mg IV .every 8 weeks 07/07/23 12/29/24 History solution (Entyvio) celecoxib 200 mg capsule 200 mg PO DAILY #90 caps 05/18/24 12/29/24 Rx duloxetine 60 mg capsule,delayed 60 mg PO QAM #90 caps 05/18/24 12/29/24 Rx release metoprolol tartrate 50 mg tablet See Rx Instructions .Route 07/14/24 12/29/24 Rx .COMPLEX #180 tabs atorvastatin 20 mg tablet 20 mg PO DAILY #90 tabs 10/09/24 12/29/24 Rx pimecrolimus 1 % topical cream 1 applic topical DAILY PRN Rash 11/28/24 12/29/24 History mesalamine 400 mg capsule (with 1,200 mg (3 x 400 mg) PO BID 1 12/20/24 12/29/24 Rx delayed release tablets inside) month #180 caps aspirin 81 mg chewable tablet 81 mg PO DAILY@0800 #30 tabs 12/31/24 Rx (Children's Aspirin) clopidogrel 75 mg tablet 75 mg PO QAM #30 tabs 12/31/24 Rx Allergies Allergy/AdvReac Type Severity Reaction Status Date / Time No Known Allergies Allergy Verified 12/29/24 16:45 Vital Signs Vital Signs - 24 hr 12/30/24 16:00 12/30/24 20:00 12/30/24 20:38 Temperature Pulse Rate 68 76 81 Respiratory Rate Blood Pressure Pulse Oximetry Oxygen Delivery 12/30/24 22:00 12/31/24 00:00 12/31/24 04:00 Temperature 97.3 F L Pulse Rate 73 68 59 L Respiratory Rate 18 Blood Pressure 120/62 Pulse Oximetry 96 Oxygen Delivery 12/31/24 06:00 12/31/24 08:13 12/31/24 09:37 Temperature 97.3 F L Pulse Rate 66 70 80 Respiratory Rate 16 Blood Pressure 113/58 L Pulse Oximetry 93 Oxygen Delivery 12/31/24 10:00 12/31/24 12:10 12/31/24 14:03 Temperature 97.7 F Pulse Rate 69 65 Respiratory Rate 16 Blood Pressure 105/61 Pulse Oximetry 100 Oxygen Delivery Room Air Exam 2 Const: General: cooperative, well developed and alert O rientation/consciousness: patient oriented x3 HENMT: Head: atraumatic Mouth: Yes oropharynx normal Other: Evidence of recent trauma around the right eye with bruising without any bleeding or laceration. Eyes: Alignment and Position: position normal Pupils: Equal, round and reactive pupils present EOM: EOMs intact bilaterally Neck: Neck: supple Resp: Effort & Inspection: normal respiratory effort Auscultation: clear to auscultation bilaterally Neuro: General: patient oriented x3 Cranial nerves: Yes CN's II-XII intact bilaterally, Yes facial sensation intact/muscles of mastication intact, Yes Equal, round and reactive pupils present, Yes facial symmetry and Yes Midline tongue present Cognition (Neuro): normal cognition Speech: normal speech Gait exam (Neuro): Normal gait present Motor exam (neuro): 5/5 motor strength present throughout Sensory Exam: normal sensation Coordination: f [id number]-ci-[id number] test normal and Normal rapid alternating movements of the distal upper extremity present (Neuro) Other: Her 3 object recall was 3/3. She knew the month and the year and she is able to tell me the ages of her children and her and the date but of . Results Labs 12/31/24 05:50 12/31/24 05:50 Labs: Short CBC 12/31/24 Range/Units 05:50 WBC 6.6 (4.5-10.0) K/mm3 Hgb 11.7 L (12.0-15.0) g/dL Hct 37.2 (37.0-47.0) % Plt Count 244 (150-375) k/mm3 BMP 12/31/24 05:50 Sodium 139 Potassium 4.2 Chloride 106 Carbon Dioxide 26 BUN 24 H Creatinine 0.97 Glucose 100 Calcium 9.1 Liver Function 12/31/24 Range/Units 05:50 Total Bilirubin 0.6 (0.2-1.3) mg/dL AST 26 (14-36) U/L ALT 18 (6-35) U/L Alkaline Phosphatase 74 (38-126) U/L Albumin 4.0 (3.5-5.1) g/dL Imaging My impression: MRI of the brain shows some white matter changes in the brainstem area Particularly manoj also the cerebral hemispheres. No evidence of a new infarct noted. CT scan of brain and CT angiogram head and neck were reviewed. No significant abnormalities noted. Radiologist's impression: same
== END 2024-12-31 16:03 | disposition home or self-care (01) | DRG 71 ==
LOC: ANHED 18:51 → ANH3MED 22:26
PROVIDERS: Physician Assistant; Admitting Provider Internal Medicine; Emergency Provider Emergency Medicine; PCP Family Medicine Adolescent Medicine; Visit Provider Student in an Organized Health Care Education/Training Program
DX: G45.4 Transient global amnesia (principal); K51.90 Ulcerative colitis, unspecified, without complications; I12.9 Hypertensive chronic kidney disease with stage 1 through stage 4 chronic kidney disease, or unspecified chronic kidney disease; N18.32 Chronic kidney disease, stage 3b; D64.9 Anemia, unspecified; E78.2 Mixed hyperlipidemia; N32.81 Overactive bladder; L40.9 Psoriasis, unspecified; M19.90 Unspecified osteoarthritis, unspecified site; Z96.653 Presence of artificial knee joint, bilateral; Z86.16 Personal history of COVID-19; Z90.710 Acquired absence of both cervix and uterus; Z90.722 Acquired absence of ovaries, bilateral; Z87.891 Personal history of nicotine dependence; E66.9 Obesity, unspecified; Z68.33 Body mass index [BMI] 33.0-33.9, adult
CPT/HCPCS: 36415; 70450; 70486; 70496; 70498; 70553; 72125; 80048; 80053; 80061; 81003; 82607; 82948; 83735; 84443; 85025; 85027; 85610; 85730; 93306; 95816; 96374; 96375; 97161; 97165; 99285; A9270; A9579; G0378; Q9967

== ENCOUNTER 2025-02-13 16:23 | Outpatient (CLI) | payer MEDICARE, OTHER, SELFPAY ==
--- OUTSIDE RECORDS SUMMARY | 2025-02-13 16:47 | XMS_ITS | Clinical Summary ---
Author Organization [facility] [employer] Address [address] [place] [address] Care Team Providers Care Site Identification Specialist Name Role Phone Unavailable Primary Care Provider Unavailabl e Source Comments [facility] [employer],non-owned Affiliates and Associated Physician Practices is amultiple site organization consisting of ambulatory clinics and hospital sitesin [place], [place], [place] and [place]. This disclosure is being madepursuant to the Care Everywhere program and may not contain all information available regarding this patient. Last updated 18.[employer] Allergies No known active allergies Medications * Be aware that medications may not be up to date on this document. Alwaysverify current medications with the patient. amoxicillin (AMOXIL) 500 MG capsule amoxicillin 500 mg capsule Active celecoxib (CELEBREX) 200 MG capsule 07/05/20 19 Active DULoxetine HCl 60 MG CSDR 06/28/20 18 Active metoprolol succinate XL 24hr (TOPROL XL) 50 MG tablet 06/06/20 19 Active sulfamethoxazo le-trimethopri m (BACTRIM DS; SEPTRA DS) 800-160 MG tablet sulfamethoxazole 800 mg-trimethoprim 160 mg tablet Active clobetasol (TEMOVATE) 0.05 % ointment clobetasol 0.05 % topical ointment 09/07/20 19 Active influenza A&B surf ant adj (FLUAD) 0.5 ML JABARI injection Fluad 65yr up(PF)45 mcg(15 mcgx3)/0.5 mL intramuscular syringe Active Active Problems Problem Noted Date Diagnosed Date Primary osteoarthritis of right knee 11/18/2019 Finding of above normal blood pressure 0 Osteoarthrosis 07/18/2019 Social History Tobacco Use Types Packs/Day Years Used Date Smoking Tobacco: Never Assessed Comments Unknown Sex and Gender Information Value Date Recorded Sex Assigned at Not on file Legal Sex Female 3:34 PM PVC MONITOR Gender Identity Not on file Sexual Orientation Not on file Last Filed Vital Signs Vital Sign Reading Time Taken Comments Blood Pressure - - Pulse - - Temperature - - Respiratory Rate - - Oxygen Saturation - - Inhaled Oxygen Concentration - - Weight 88.5 kg (195 lb) 11/18/2019 8:30 AM PVC MONITOR Height 165.1 cm (5' 5 ) 11/18/2019 8:30 AM PVC MONITOR Body Mass Index 32.45 11/18/2019 8:30 AM PVC MONITOR Plan of Treatment Health Maintenance Due Date Last Done Comments BONE DENSITY TESTING 1944 DTAP/TDAP/TD VACCINES (1 - Tdap) 1963 PNEUMOCOCCAL VACCINE 50+ (1 of 1 - PCV) 1994 ZOSTER VACCINE (1 of 2) 1994 Respiratory Syncytial Virus (RSV) Vaccine Pt: or over 60 yrs (1 - 1-dose 75+ series) 2019 COVID-19 VACCINE ( - 2023-2 5 season) 2024 DEPRESSION SCREENING 10/12/2024 MEDICARE AWV CALENDAR YEAR 2024 INFLUENZA VACCINE (Season Ended) 2025 HEPATITIS B VACCINE Aged Out No longe [...] on patient's age to complete this topic Insurance [facility] AETNA HUMANA MEDICARE ADV HMO & PPO HUMANA
--- OUTSIDE RECORDS SUMMARY | 2025-02-13 16:47 | XMS_ITS | Data Portability ---
Author Organization [employer] Sun Number [facility], [facility] Address [address] [address] Assessment No assessment recorded. Plan of Treatment [...] Time 9 Knee Surgery completed [facility] 03/15/2021 12:32:27 0 Hysterectomy completed [facility] HARP [facility] 03/15/2021 12:32:53 Imaging Results [...] Updated DateTime 1 167.64 cm 28.2 kg/m2 24045.6 6 g 64 /min 96 % 96 % 98 [degF] 146 mm[Hg] 92 mm[Hg] TIN HARP [facility] [employer], [facility] 1 12:27:13 Social History Question Answer Notes LastModified by Organizat ion Details LastModified Time Tobacco Smoking Status Former Smoker NAKUL Mayorga - [facility], [facility] 03/15/2021 12:29:28 What Is Your Level Of Alcohol Consumption? None Information not available 03/15/2021 Auto Related Injury? No [email or web address] Information not available 03/15/2021 What Is Your Occupation? Retired [email or web address] Information not available 03/15/2021 Which Of Your Hands Is Dominant? Right Information not available 03/15/2021 Live Alone Or With Others? With Others [email or web address] Information not available 03/15/2021 Marital Status [email or web address] Informatio n not available 03/15/2021 If Injured, Is Litigation Ongoing? No [email or web address] Information not available 03/15/2021 How Many Years Have You Smoked Tobacco? 20 [email or web address] Information not available 03/15/2021 Work Related Injury? No [email or web address] Information not available 03/15/2021 Sex: Unknown Functional Status Question Answer Note LastModified by Organization D etails LastModified Time What is your exercise level? Moderate [email or web address] Information not available 03/15/2021 Mental Status None recorded. Family History Relationship Description Onset Age of this Age Resolved Age Notes LastModified by Organization Details LastModified Time Father Heart disease [email or web address] Not available 2020 12:28:33 Sister Depressive disorder [email or web address] Not available 2020 12:28:47 Mother Leukemia [email or web address] Not availabl e 03/15/2021 12:29:07 Medical History Condition Response Arthritis Y Hypertension Y Depression Y Gynecological HistoryNo gynecological history recorded. Obstetrics History GPAL:G 0 P 0 0 0 0 Past Encounters Encounter ID Performer Location Encounter Start Date Encounter Closed Date Diagnosis/Indication Diagnosis SNOMED-CT Code Diagnosis ICD10 Code Diagnosis Note [id number] Kana Madrid, DO [facility] [address] [place] [id number] 03/15/2021 11:02:40 03/21/2021 12:47:43 Knee pain 58682386 M25.561 I discussed with the patient today [...] 03/15/2021 2 AETNA - CHOICE (POS II) [id number] Daphne Garrison [id number] Daphne Garrison 03/15/2021 1 HUMANA (MEDICARE REPLACEMENT /ADVANTAGE - PPO) Daphne Garrison [id number] Daphne Garrison Notes Date Note Type Note [...] minimal benefit to this point. Lars Madrid, [address], [place], [address], [facility], [facility] 03/19/2021 09:35:37 OBGyn Episode No OBEpisode recorded.
--- OUTSIDE RECORDS SUMMARY | 2025-02-13 16:47 | XMS_ITS | CONTINUITY OF CARE DOCUMENT ---
Author Name gamaliel alston Address Unknown Organization [facility] Address [address] [place] [address] [address] [place] [address] Phone [phone] Care Team Providers Care Education Sales Consultant Name Role Phone Osmany SAAB, Stewart Unavailable [phone] INSURANCE PROVIDERS Payer name Policy type / Coverage type [place] red green party ID FOR LIFE SALLIE [id number] MAIL HANDLERS BENEFIT PLAN Commercial insurance [employer] [id number] [place] Medicare [id number]
[2025-02-16 12:42] LABS: NIL 0.02 IU/mL; Quantiferon TB Plus, 1T NEGATIVE (NEGATIVE)
== END 2025-02-13 16:24 | disposition home or self-care (01) ==
PROVIDERS: PCP Family Medicine Adolescent Medicine; Visit Provider Nurse Practitioner
DX: Z51.81 Encounter for therapeutic drug level monitoring (principal); Z79.620 Long term (current) use of immunosuppressive biologic
CPT/HCPCS: 36415; 86480

== ENCOUNTER 2025-02-20 00:52 | Day surgery (SDC) | payer MEDICARE, OTHER, SELFPAY ==
[2025-02-09 09:33] VITALS: BMI 35.4
--- OUTSIDE RECORDS SUMMARY | 2025-02-20 00:55 | XMS_ITS | Data Portability ---
Author Organization [employer] [facility], [facility] Address [address] [address] Assessment No assessment recorded. Plan of Treatment [...] Time 9 Knee Surgery completed [facility] HARP [facility] 03/15/2021 12:32:27 0 Hysterectomy completed TIN HARP [facility] 03/15/2021 12:32:53 Imaging Results None recorded. Procedure [...] Updated DateTime 1 167.64 cm 28.2 kg/m2 08161.6 6 g 64 /min 96 % 96 % 98 [degF] 146 mm[Hg] 92 mm[Hg] TIN HARP [facility] [employer], [facility] 1 12:27:13 Social History Question Answer Notes LastModified by Organizat ion Details LastModified Time Tobacco Smoking Status Former Smoker NAKUL Mayorga - [employer] [facility], [facility] 03/15/2021 12:29:28 Auto Related Injury? No [email or web address] Information not available 03/15/2021 Which Of Your Hands Is Dominant? Right [email or web address] Information not available 03/15/2021 Live Alone Or With Others? With Others [email or web address] Information not available 03/15/2021 Marital Status [email or web address] Informatio n not available 03/15/2021 If Injured, Is Litigation Ongoing? No [email or web address] Information not available 03/15/2021 How Many Years Have You Smoked Tobacco? 20 Information not available 03/15/2021 Work Related Injury? No [email or web address] Information not available 03/15/2021 Sex: Unknown Functional Status Question Answer Note LastModified by Organization D etails LastModified Time What is your level of alcohol consumption? None [email or web address] Information not available 03/15/2021 What is your occupation? Retired [email or web address] Information not available 03/15/2021 What is your exercise level? Moderate [email or web address] Information not available 03/15/2021 Mental Status None recorded. Family History Relationship Description Onset Age of this Age Resolved Age Notes LastModified by Organization Details LastModified Time Father Heart disease [email or web address] Not available 2020 12:28:33 Sister Depressive disorder [email or web address] Not available 2020 12:28:47 Mother Leukemia [email or web address] Not availabl e 03/15/2021 12:29:07 Medical History Condition Response Arthritis Y Hypertension Y Depression Y Gynecological HistoryNo gynecological history recorded. Obstetrics History GPAL:G 0 P 0 0 0 0 Past Encounters Encounter ID Performer Location Encounter Start Date Encounter Closed Date Diagnosis/Indication Diagnosis SNOMED-CT Code Diagnosis ICD10 Code Diagnosis Note [id number] Kana Madrid, DO [facility] [address] ,[address] [place] [id number] 03/15/2021 11:02:40 03/21/2021 12:47:43 Knee pain 80274558 M25.561 I discussed with the patient today [...] 03/15/2021 2 AETNA - CHOICE (POS II) [id number] Daphne Garrison [id number] Daphne Garrison 03/15/2021 1 HUMANA (MEDICARE REPLACEMENT /ADVANTAGE - PPO) Daphne Garrison [id number] Daphne Garrison Notes Date Note Type Note [...] minimal benefit to this point. Lars Madrid, [address], [place], [address], [facility], [facility] 03/19/2021 09:35:37 OBGyn Episode No OBEpisode recorded.
--- OUTSIDE RECORDS SUMMARY | 2025-02-20 00:55 | XMS_ITS | CONTINUITY OF CARE DOCUMENT ---
Author Name gamaliel alston Address Unknown Organization [facility] Address [address] [place] [address] [address] [place] [address] Phone [phone] Care Team Providers Care Ad Operations Associate Name Role Phone Osmany SAAB, Stewart Unavailable INSURANCE PROVIDERS Payer name Policy type / Coverage type [place] red republican ID FOR LIFE [id number] MAIL HANDLERS BENEFIT PLAN Commercial insurance [employer] [id number] [place] MEDICARE Medicare [id number]
--- OUTSIDE RECORDS SUMMARY | 2025-02-20 00:55 | XMS_ITS | Clinical Summary ---
Author Organization [facility] [employer] Address [address] [place] [address] Care Team Providers Care Morgue Technician Name Role Phone Unavailable Primary Care Provider Unavailabl e Source Comments [facility] [employer],non-owned Affiliates and Associated Physician Practices is amultiple site organization consisting of ambulatory clinics and hospital sitesin [place], [place], [place] and [place]. This disclosure is being madepursuant to the Care Everywhere program and may not contain all information available regarding this patient. Last updated 18.[employer] Allergies No known active allergies Medications * [...] on file Legal Sex Female 3:34 PM FUNERAL CAR CHAUFFEUR Gender Identity Not on file Sexual Orientation Not on file Last Filed Vital Signs Vital Sign Reading Time Taken Comments Blood Pressure - - Pulse - - Temperature - - Respiratory Rate - - Oxygen Saturation - - Inhaled Oxygen Concentration - - Weight 88.5 kg (195 lb) 11/18/2019 8:30 AM FUNERAL CAR CHAUFFEUR Height 165.1 cm (5' 5 ) 11/18/2019 8:30 AM FUNERAL CAR CHAUFFEUR Body Mass Index 32.45 11/18/2019 8:30 AM FUNERAL CAR CHAUFFEUR Plan of Treatment Health Maintenance Due Date [...] patient's age to complete this topic Insurance [facility] AETNA HUMANA MEDICARE ADV HMO & PPO HUMANA
[2025-02-20 07:13] VITALS: BP 130/67; PULSE 93; RESP 18; TEMP 36.7; O2SAT 96; BMI 34.4
[2025-02-20] MEDS: LACTATED RINGERS 1,000 ML 150 ML IV CONT (07:21)
--- NOTE | 2025-02-20 07:49 | P.PNAN_ITS ---
Anes - Initial Pre Proc Eval Procedure: Operation Date: 02/20/25 08:30 Proposed Procedures p Colonoscopy - Solitario Crockett MD Date/Time: 02/20/25 07:49 Surgeon: Solitario Crockett MD Pre Op Diagnosis: Ulcerative colitis, unspecified, w/o complications Patient Data Age: 79 Gender: F Height: 1.63 m Weight: 91 kg Last Vital Signs Temp 36.7 C 02/20/25 07:13 Pulse 93 02/20/25 07:13 Resp 18 02/20/25 07:13 BP 130/67 02/20/25 07:13 Pulse Ox 96 02/20/25 07:13 O2 Del Method Room Air 02/20/25 07:13 Allergies Allergy/AdvReac Type Severity Reaction Status Date / Time No Known Allergies Allergy Verified 02/20/25 07:11 Home Medications ?Medication ?Instructions ?Recorded ?Confirmed ?Type multivitamin 1 tablet PO DAILY 01/15/21 02/20/25 History atorvastatin 20 mg tablet 20 mg PO DAILY #90 tabs 10/09/24 02/20/25 Rx pimecrolimus 1 % topical cream 1 applic topical DAILY PRN Rash 11/28/24 02/09/25 History aspirin 81 mg chewable tablet 81 mg PO DAILY@0800 #30 tabs 12/31/24 02/20/25 Rx (Children's Aspirin) ketoconazole 2 % shampoo 1 applic topical 3XW 01/12/25 02/09/25 History infliximab 100 mg intravenous 400 mg IV .every 6 weeks 01/20/25 02/09/25 History solution (Remicade) celecoxib 200 mg capsule 200 mg PO DAILY #90 caps 02/12/25 02/20/25 Rx duloxetine 60 mg capsule,delayed 60 mg PO QAM #90 caps 02/12/25 02/20/25 Rx release metoprolol tartrate 50 mg tablet See Rx Instructions .Route 02/12/25 02/20/25 Rx .COMPLEX #180 tabs Patient hx anesthesia problems: none Family hx anesthesia problems: none Results Review: All pre-operative results and documents have been reviewed as part of the pre- operative evaluation. [facility] Past Medical History Medical History Stage 3b chronic kidney disease Degenerative disc disease Pseudopolyp of descending colon Obesity Hypertension Positive QuantiFERON-TB Gold test COVID-19 Ulcerative colitis (2020) Mixed hyperlipidemia Major depressive disorder, recurrent, mild Overactive bladder Arthritis Psoriasis Anemia Surgical History Surgical History History of bladder suspension procedure (2008) History of cataract extraction History of bladder repair surgery History of hemorrhoidectomy Excisional hemorrhoidectomy x3 on 08/03/23 SAW History of arthroscopy of left knee (2017) History of hysterectomy with bilateral oophorectomy (2008) History of right knee joint replacement (04/2021) History of laminectomy History of left knee replacement (12/2011) Family History Family History Mother Leukemia Father Heart attack Depression Sibling Heart abnormality Social History Social History Social History: Surrogate medical decision maker: Steve Garrison, spouse. Code status: Full code. Smoking packs per day: 1 Smoking cigarettes per day: 20.0 Years smoked: 25 Smoking pack-years: 25.00 Smoking status: Former smoker Tobacco type: cigarettes Second hand tobacco smoke exposure: No Smoking end date: 10/12/08 Alcohol intake: never Substance use: never Substance use type: does not use Do You Feel Safe in your Home?: Yes Lack of Transportation: No Lack of Food: Never True Current Housing: I Have Housing Concerned About Future Housing: No Difficulty Paying Gas/Electric Bills: No Difficulty Paying for Meds: No Currently Unemployed: No Education: Bachelor's Degree Difficulty w/ Childcare or Family Care: No Living arrangements: with family Additional living arrangements comments: Lives with spouse in [place]. Spiritual care concerns: No Agree to blood products: Yes Anes - Eval Final PreProcedure Day of Procedure 02/20/25 07:49 Patient weight: obese Heart: regular rate and rhythm Lungs: clear to auscultation Airway: Mallampati scale class II Neurological: alert and oriented Last oral intake: >/= 8 hours ASA classification: III Emergent: no Anesthetic plan: proceed Anesthesia type and monitoring: general GIVS and standard monitoring Results Review: All pre-operative results and documents have been reviewed as part of the pre- operative evaluation. Informed Consent: The patient's anesthetic plan and its attendant risks and benefits were discussed with the patient/family/POA. Questions were solicited and answers provided to the satisfaction of the patient/family/POA.
--- NOTE | 2025-02-20 08:13 | PM.HPGS ---
History of Present Illness History of Present Illness Consent: Risks, benefits, and alternatives have been discussed and questions answered. Patient agrees to proceed with procedure. Chief complaint: Ulcerative colitis, unspecified, w/o complications Narrative: Daphne Garrison is a 79 year old female with uc in 2020, currently on remicade and doing well (used to be on entyvio but had to switch because insurance), last colonoscopy 2022 with mild left sided colitis and pseudopolyps. Review of Systems Review of Systems: All systems reviewed & are unremarkable except as noted in HPI and below PMFSH Past Medical History Medical History Stage 3b chronic kidney disease Degenerative disc disease Pseudopolyp of descending colon Obesity Hypertension Positive QuantiFERON-TB Gold test COVID-19 Ulcerative colitis (2020) Mixed hyperlipidemia Major depressive disorder, recurrent, mild Overactive bladder Arthritis Psoriasis Anemia Surgical History Surgical History History of bladder suspension procedure (2008) History of cataract extraction History of bladder repair surgery History of hemorrhoidectomy Excisional hemorrhoidectomy x3 on 08/03/23 SAW History of arthroscopy of left knee (2017) History of hysterectomy with bilateral oophorectomy (2008) History of right knee joint replacement (04/2021) History of laminectomy History of left knee replacement (12/2011) Family History Family History Mother Leukemia Father Heart attack Depression Sibling Heart abnormality Social History Social History Social History: Surrogate medical decision maker: Steve Garrison, spouse. Code status: Full code. Smoking packs per day: 1 Smoking cigarettes per day: 20.0 Years smoked: 25 Smoking pack-years: 25.00 Smoking status: Former smoker Tobacco type: cigarettes Second hand tobacco smoke exposure: No Smoking end date: 10/12/08 Alcohol intake: never Substance use: never Substance use type: does not use Do You Feel Safe in your Home?: Yes Lack of Transportation: No Lack of Food: Never True Current Housing: I Have Housing Concerned About Future Housing: No Difficulty Paying Gas/Electric Bills: No Difficulty Paying for Meds: No Currently Unemployed: No Education: Bachelor's Degree Difficulty w/ Childcare or Family Care: No Living arrangements: with family Additional living arrangements comments: Lives with spouse in [place]. Spiritual care concerns: No Agree to blood products: Yes Meds Home Medications and Allergies Home Medications ?Medication ?Instructions ?Recorded ?Confirmed ?Type multivitamin 1 tablet PO DAILY 01/15/21 02/20/25 History atorvastatin 20 mg tablet 20 mg PO DAILY #90 tabs 10/09/24 02/20/25 Rx pimecrolimus 1 % topical cream 1 applic topical DAILY PRN Rash 11/28/24 02/09/25 History aspirin 81 mg chewable tablet 81 mg PO DAILY@0800 #30 tabs 12/31/24 02/20/25 Rx (Children's Aspirin) ketoconazole 2 % shampoo 1 applic topical 3XW 01/12/25 02/09/25 History infliximab 100 mg intravenous 400 mg IV .every 6 weeks 01/20/25 02/09/25 History solution (Remicade) celecoxib 200 mg capsule 200 mg PO DAILY #90 caps 02/12/25 02/20/25 Rx duloxetine 60 mg capsule,delayed 60 mg PO QAM #90 caps 02/12/25 02/20/25 Rx release metoprolol tartrate 50 mg tablet See Rx Instructions .Route 02/12/25 02/20/25 Rx .COMPLEX #180 tabs Allergies Allergy/AdvReac Type Severity Reaction Status Date / Time No Known Allergies Allergy Verified 02/20/25 07:11 Vital Signs Vital Signs - 24 hr 02/20/25 07:13 Temperature 98.1 F Pulse Rate 93 Respiratory Rate 18 Blood Pressure 130/67 Pulse Oximetry 96 Oxygen Delivery Room Air Exam Const: General: comfortable and no acute distress HENMT: Face/Nose/Sinus: Normal nares present Eyes: General: appearance normal, both eyes and all related structures Neck: Neck: no JVD Resp: Auscultation: clear to auscultation bilaterally Cardio: Rate: regular rate Rhythm: regular rhythm GI: Inspection: non-distended GI Palp: Yes Soft to palpation Skin: General skin exam: normal color Neuro: Speech: normal speech Extrem: General: normal to inspection Psych: Mental Status: mental status grossly normal Assessment and Plan Assessment and plan (1) Ulcerative colitis: Onset Date: 2020 Code(s): K51.90 - Ulcerative colitis, unspecified, without complications Status: Acute Assessment and Plan: colonoscopy for surveillance on remicade and doing well
[2025-02-20 08:32] VITALS: BP 103/58; PULSE 64; RESP 20; O2SAT 94
[2025-02-20 08:42] VITALS: BP 107/56; PULSE 62; RESP 19; O2SAT 94
[2025-02-20 08:52] VITALS: BP 122/66; PULSE 60; RESP 15; O2SAT 97
== END 2025-02-20 09:12 | disposition home or self-care (01) ==
PROVIDERS: PCP Family Medicine Adolescent Medicine; Visit Provider Internal Medicine Gastroenterology
PROC: 0DJD8ZZ Inspection of Lower Intestinal Tract, Via Natural or Artificial Opening Endoscopic (ICD-10-PCS; CPT 45378; principal; 2025-02-20 08:30)
DX: K51.90 Ulcerative colitis, unspecified, without complications (principal); I12.9 Hypertensive chronic kidney disease with stage 1 through stage 4 chronic kidney disease, or unspecified chronic kidney disease; N18.32 Chronic kidney disease, stage 3b; E78.2 Mixed hyperlipidemia; N32.81 Overactive bladder; D64.9 Anemia, unspecified; F33.0 Major depressive disorder, recurrent, mild; M51.9 Unspecified thoracic, thoracolumbar and lumbosacral intervertebral disc disorder; M19.90 Unspecified osteoarthritis, unspecified site; L40.9 Psoriasis, unspecified; E66.9 Obesity, unspecified; Z68.34 Body mass index [BMI] 34.0-34.9, adult; Z79.82 Long term (current) use of aspirin; Z79.1 Long term (current) use of non-steroidal anti-inflammatories (NSAID); Z98.890 Other specified postprocedural states; Z98.1 Arthrodesis status; Z87.891 Personal history of nicotine dependence; Z86.0100 Personal history of colon polyps, unspecified; Z87.19 Personal history of other diseases of the digestive system; Z80.6 Family history of leukemia; Z82.49 Family history of ischemic heart disease and other diseases of the circulatory system
CPT/HCPCS: 45380; 88305; J2003; J2704; J7120

== ENCOUNTER 2025-02-28 11:41 | Outpatient (CLI) | payer MEDICARE, OTHER, SELFPAY ==
--- OUTSIDE RECORDS SUMMARY | 2025-02-28 11:47 | XMS_ITS | Data Portability ---
Author Organization [employer] [facility], [facility] Address [address] [address] Assessment No assessment recorded. Plan of Treatment [...] Time 9 Knee Surgery completed [facility] 03/15/2021 12:32:27 0 Hysterectomy completed [facility]IN [facility] [facility] 03/15/2021 12:32:53 Imaging Results None recorded. Procedure [...] Updated DateTime 1 167.64 cm 28.2 kg/m2 43738.6 6 g 64 /min 96 % 96 % 98 [degF] 146 mm[Hg] 92 mm[Hg] TIN HARP [facility] [employer], [facility] 1 12:27:13 Social History Question Answer Notes LastModified by Organizat ion Details LastModified Time Tobacco Smoking Status Former Smoker NAKUL Mayorga [facility] [employer] [facility], [facility] 03/15/2021 12:29:28 Auto Related Injury? No Information not available 03/15/2021 Which Of Your Hands Is Dominant? Right [email or web address] Information not available 03/15/2021 Live Alone Or With Others? With Others [email or web address] Information not available 03/15/2021 Marital Status Informatio n not available 03/15/2021 If Injured, Is Litigation Ongoing? No [email or web address] Information not available 03/15/2021 How Many Years Have You Smoked Tobacco? 20 Information not available 03/15/2021 Work Related Injury? No [email or web address] Information not available 03/15/2021 Sex: Unknown Functional Status Question Answer Note LastModified by Organization D etails LastModified Time What is your level of alcohol consumption? None [email or web address] Information not available 03/15/2021 What is your occupation? Retired [email or web address] Information not available 03/15/2021 What is your exercise level? Moderate [email or web address] Information not available 03/15/2021 Mental Status None recorded. Family History Relationship Description Onset Age of this Age Resolved Age Notes LastModified by Organization Details LastModified Time Father Heart disease [email or web address] Not available 2020 12:28:33 Sister Depressive disorder [email or web address] Not available 2020 12:28:47 Mother Leukemia [email or web address] Not availabl e 03/15/2021 12:29:07 Medical History Condition Response Arthritis Y Hypertension Y Depression Y Gynecological HistoryNo gynecological history recorded. Obstetrics History GPAL:G 0 P 0 0 0 0 Past Encounters Encounter ID Performer Location Encounter Start Date Encounter Closed Date Diagnosis/Indication Diagnosis SNOMED-CT Code Diagnosis ICD10 Code Diagnosis Note [id number] Kana Madrid, DO [facility] [address] [place] [id number] 03/15/2021 11:02:40 03/21/2021 12:47:43 Knee pain [id number] M25.561 I discussed with the patient today [...] 03/15/2021 2 [employer] - CHOICE (POS II) [id number] Daphne Garrison [id number] Daphne Garrison 03/15/2021 1 [employer] (MEDICARE REPLACEMENT /ADVANTAGE - PPO) Daphne Garrison [id number] Daphne Garrison Notes Date Note Type Note [...] minimal benefit to this point. Lars Madrid, [address] [address], [place], [address], [facility] Medical [facility], [facility] 03/19/2021 09:35:37 OBGyn Episode No OBEpisode recorded.
--- OUTSIDE RECORDS SUMMARY | 2025-02-28 11:47 | XMS_ITS | CONTINUITY OF CARE DOCUMENT ---
Author Name gamaliel alston Address Unknown Organization [facility] Address [address] [place] [address] [address] [place] [address] Phone [phone] Care Team Providers Care Security Shift Supervisor Name Role Phone Osmany SAAB, Stewart Unavailable [phone] INSURANCE PROVIDERS Payer name Policy type / Coverage type Rochelle red constitution party ID FOR LIFE [id number] [employer]AN [employer] insurance [employer] [id number] [place] MEDICARE Medicare [id number]
--- OUTSIDE RECORDS SUMMARY | 2025-02-28 11:47 | XMS_ITS | Clinical Summary ---
Author Organization [facility] Address [address] [place] [address] Care Team Providers Care Meat Wrapper Name Role Phone Unavailable Primary Care Provider Unavailabl e Source Comments [facility],non-owned Affiliates and Associated Physician Practices is amultiple site organization consisting of ambulatory clinics and hospital sitesin [place], [place], [place] and [place]. This disclosure is being madepursuant to the Care Everywhere program and may not contain all information available regarding this patient. Last updated [employer] [facility] Allergies No known active allergies Medications * [...] on file Legal Sex Female 3:34 PM CONSULTING HR PROFESSIONAL Gender Identity Not on file Sexual Orientation Not on file Last Filed Vital Signs Vital Sign Reading Time Taken Comments Blood Pressure - - Pulse - - Temperature - - Respiratory Rate - - Oxygen Saturation - - Inhaled Oxygen Concentration - - Weight 88.5 kg (195 lb) 11/18/2019 8:30 AM CONSULTING HR PROFESSIONAL Height 165.1 cm (5' 5 ) 11/18/2019 8:30 AM CONSULTING HR PROFESSIONAL Body Mass Index 32.45 11/18/2019 8:30 AM CONSULTING HR PROFESSIONAL Plan of Treatment Health Maintenance Due Date [...] patient's age to complete this topic Insurance [facility] [employer] Address: [facility] [address] [place] [address] [employer] MEDICARE ADV HMO & PPO SELF PAY NO INSURANCE Member Subscriber Plan / Payer (Ef fective for All Dates) Name:MeliRonal Member ID:Not on file Relation to Subscriber:Not on file Name:MELI,RONAL K Subscriber ID:Not on file (Home) Address: [address] [place] [address] Payer ID:Not on file Group ID:Not on file Type:Self Pay Address: [place], [place] HUMANA [facility] Address: [address] [place] [id number]
[2025-03-06 13:39] LABS: Calprotectin, Stool 395 mcg/g
== END 2025-02-28 11:42 | disposition home or self-care (01) ==
LOC: ANHLAB 11:45
PROVIDERS: PCP Family Medicine Adolescent Medicine; Visit Provider Nurse Practitioner
DX: K51.90 Ulcerative colitis, unspecified, without complications (principal)
CPT/HCPCS: 83993